=== PATIENT | female | born 1960 | race Two or more races ===

== ENCOUNTER 2024-09-12 07:01 | Inpatient (IN) | payer MEDICAID ==
[~2024-09-12] VITALS: Ht 160 cm; Wt 88.4 kg
[2024-09-12] VITALS (37 sets, daily range): BP systolic 69–152; BP diastolic 39–86; PULSE 74–124; RESP 10–23; TEMP 96.8–102.5; O2SAT 97–100
--- NOTE | 2024-09-12 07:17 | ED.PDOC ---
GI ASSESSMENT HPI Comments 64-year-old female with PMHx DM brought in by EMS presents with a chief complaint of abdominal pain, nausea, vomiting, and hematemesis. Patient states that her abdomen pain is localized to her diffuse abdomen, radiates to her back, describes as sharp, and rates her pain a 10/10. Patient mentions that she had an endoscopy yesterday and does not recall where it was done at or by whom. Per EMS, they witnessed patient vomiting bright red blood. Patients abdomen is soft and not distended at this time. Time Seen by MD: 07:10 Reviewed Notes: Medications, Allergies Allergies: Coded Allergies: NO KNOWN ALLERGIES (Unverified , 09/12/24) Information Source: Patient, Emergency Med Personnel Mode of Arrival: EMS Timing: Hours Duration: Since onset Prehospital treatment: None Quality: Sharp Vomitus: Bloody, Bright Red Bood Stool: Normal Severity: Moderate Recent: None Recent Hx of: Other (ENDOSCOPY) Pain Location: Diffuse Associated sign and symptoms: Nausea, Vomiting, Abdominal Pain Past Medical History PAST MEDICAL HISTORY: DM Surgical History: Denies all surgeries DATA WAREHOUSE ARCHITECT History: Denies all DATA WAREHOUSE ARCHITECT Hx Family History Family History: Reviewed,noncontributory to illness Social History Smoker: Non-Smoker Alcohol: Denies ETOH Use Drugs: Denies Drug Use Lives In: Home Constitutional: denies: chills, diaphoresis, fatigue, fever, malaise, sweats, weakness, others EENTM: denies: blurred vision, double vision, ear bleeding, ear discharge, ear drainage, ear pain, ear ringing, eye pain, eye redness, hearing loss, mouth pain, mouth swelling, nasal discharge, nose bleeding, nose congestion, nose pain, photophobia, tearing, throat pain, throat swelling, voice changes, others Respiratory: denies: cough, hemoptysis, orthopnea, SOB at rest, shortness of breath, SOB with excertion, stridor, wheezing, others Cardiovascular: denies: chest pain, dizzy spells, diaphoresis, Dyspnea on exertion, edema, irregular heart beat, left arm pain, lightheadedness, palpitations, PND, syncope, others Gastrointestinal: reports: abdominal pain, hematemesis, nausea, vomiting; denies: abdomen distended, blood streaked bowels, constipated, diarrhea, dysphagia, difficulty swallowing, melena, poor appetite, poor fluid intake, rectal bleeding, rectal pain, others Genitourinary: denies: abnormal vagina bleeding, burning, dyspareunia, dysuria, flank pain, frequency, hematuria, incontinence, pain, , vagina discharge, urgency, others Neurological: denies: dizziness, fainting, headache, left sided numbness, left sided weakness, numbness, paresthesia, pre-existing deficit, right sided numbness, right sided weakness, seizure, speech problems, tingling, tremors, weakness, others Musculoskeletal: denies: back pain, gout, joint pain, joint swelling, muscle pain, muscle stiffness, neck pain, others Integumetry: denies: bruises, change in color, change in hair/nails, dryness, laceration, lesions, lumps, rash, wounds, others Allergic/Immunocompromised: denies: Difficulty Healing, Frequent Infections, Hives, Itching, others Hematologic/Lymphatic: denies: anemia, blood clots, easy bleeding, easy bruising, swollen glands, others Endocrine: denies: excessive hunger, excessive sweating, excessive thirst, excessive urination, flushing, intolerance to cold, intolerance to heat, unexplained weight gain, unexplained weight loss, others Psychiatric: denies: anxiety, bipolar disorder, depression, hopeless, panic disorder, schizophrenia, sleepless, suicidal, others All Other Systems: Reviewed and Negative Physical Exam General Appearance: Moderate Distress, Normal HEENT: Normal ENT Inspection, Pharynx Normal, TMs Normal Neck: Full Range of Motion, Non-Tender, Normal, Normal Inspection Respiratory: Chest Non-Tender, Lungs Clear, No Accessory Muscle Use, No Respiratory Distress, Normal Breath Sounds Cardiovascular: No Edema, No JVD, No Murmur, No Gallop, Normal Peripheral Pulses, Regular Rate/Rhythm Breast Exam: Deferred Gastrointestinal: No Organomegaly, Non Tender, No Pulsatile Mass, Normal Bowel Sounds, Soft Genitalia: Deferred Pelvic: Deferred Rectal: Deferred Extremities: No calf tenderness, Normal capillary refill, Normal inspection, Normal range of motion, Non-tender, No pedal edema Musculoskeletal : Apperance: Normal Neurologic: Alert, oil field technician II-XII nml as Tested, No Motor Deficits, Normal Affect, Normal Mood, No Sensory Deficits Cerebellar Function: Normal, NOT DONE Reflexes: NOT DONE Skin: Dry, Normal Color, Warm Peripheral Pulses: 3+ Radial (R), 3+ Radial (L) Lymphatic: No Adenopathy Was a procedure done? Was a procedure done?: No GI differential Dx Differential Diagnosis: Constipation, Diverticular disease, Esophagitis, Gastritis/PUD, Gastroenteritis X-Ray, Labs, Meds, VS Vital Signs Date Time Temp Pulse Resp B/P (MAP) Pulse Ox O2 Delivery O2 Flow Rate FiO2 09/12/24 09:30 97.8 99 18 88/61 (70) 100 97.8 09/12/24 09:30 97.8 100 14 88/61 (70) 99 97.8 09/12/24 08:00 85 09/12/24 07:44 82 16 97 Room Air* 0 21 09/12/24 07:25 97.5 63 21 58/38 (45) 95 09/12/24 07:15 97.6 80 10 87/50 (62) 94 97.6 Lab Test 09/12/24 07:41 09/12/24 07:21 Range/Units White Blood Count 8.4 4.4-10.8 10^3/uL Red Blood Count 3.24 L 4.0-5.20 10^6/uL Hemoglobin 10.4 L 12.2-16.2 g/dL Hematocrit 31.0 L 36.0-46.0 % Mean Corpuscular Volume 95.8 80.0-100.0 fL Mean Corpuscular Hemoglobin 32.0 28.0-32.0 pg Mean Corpuscular Hemoglobin Concent 33.4 32.0-36.0 g/dL Red Cell Distribution Width 13.6 11.8-14.3 % Platelet Count 265 140-450 10^3/uL Mean Platelet Volume 6.7 L 6.9-10.8 fL Neutrophils (%) (Auto) 70.6 37.0-80.0 % Lymphocytes (%) (Auto) 20.3 10.0-50.0 % Monocytes (%) (Auto) 5.0 0.0-12.0 % Eosinophils (%) (Auto) 3.7 0.0-7.0 % Basophils (%) (Auto) 0.4 0.0-2.0 % Neutrophils # (Auto) 6.0 1.6-8.6 10 ^3/uL Lymphocytes # (Auto) 1.7 0.4-5.4 10 ^3/uL Monocytes # (Auto) 0.4 0-1.3 10 ^3/uL Eosinophils # (Auto) 0.3 0-0.8 10 ^3/uL Basophils # (Auto) 0 0-0.2 10 ^3/uL Nucleated Red Blood Cells 0.0 % Sodium Level 144 136-145 mmol/L Potassium Level 3.5 3.5-5.1 mmol/L Chloride Level 112 H 98-107 mmol/L Carbon Dioxide Level 24 20-31 mmol/L Anion Gap 8 5-15 Blood Urea Nitrogen 24 H 9-23 mg/dL Creatinine 0.58 0.550-1.02 mg/dL Glomerular Filtration Rate Calc 102 >90 mL/min BUN/Creatinine Ratio 41.4 H 10.0-20.0 Serum Glucose 163 H 74-106 mg/dL Calcium Level 8.2 L 8.7-10.4 mg/dL POC Glucose 167 H 70-106 mg/dl Current Medications Medications (Trade) Dose Ordered Sig/Leann Route Start Time Stop Time Status Last Admin Sodium Chloride 1,000 ml @ 1,000 mls/hr Q1H ONCE IV 09/12/24 07:30 09/12/24 08:29 DC 09/12/24 07:37 Sodium Chloride 1,000 ml @ 150 mls/hr Q6H40M ONCE IV 09/12/24 07:30 09/12/24 14:09 09/12/24 07:34 Pantoprazole Sodium (Protonix) 40 mg ONCE ONCE IV 09/12/24 07:30 09/12/24 07:31 DC 09/12/24 07:25 Pantoprazole Sodium 50 ml @ 10 mls/hr Q5H ONCE IV 09/12/24 08:00 09/12/24 12:59 09/12/24 08:17 Sodium Chloride 1,000 ml @ 1,000 mls/hr Q1H ONCE IV 09/12/24 09:30 09/12/24 10:29 09/12/24 09:36 Patient alert. Came in because of vomiting blood dark tarry stool. Vitals stable. Answering all questions. Abdomen is soft nontender. Establish intravenous access. Was given fluids. Was given Protonix. Unknown whether where she had her endoscope. Blood sugar elevated. Blood pressure is on the low side. Continue fluids. GI consultation. Explained to the patient. Continue monitoring. Time of 1ST Reevaluation: 07:40 Reevaluation 1ST: Unchanged Patient Education/Counseling: Diagnosis, Treatment, Prognosis Family Education/Counseling: Diagnosis, Treatment, Prognosis Departure 1 Departure Time of Disposition: 07:58 Impression: Primary Impression: GI bleed Qualified Codes: K27.4 - Chronic or unspecified peptic ulcer, site unspecified, with hemorrhage Disposition: ADMITTED INPATIENT Admit to: Med Surg Condition: Guarded Critical Care Note Critical Care Time?: Yes (90 min-critical care time only) Critical care comment: GI bleed Stability Stability form required: No Heart Score Heart Score: Heart Score Response (Comments) Value History N/A 0 EKG N/A 0 Age N/A 0 Risk Factors N/A 0 Troponin N/A 0 Total 0 I personally scribed for ARIANA MONTANEZ MD ([email or web address]) on 09/12/24 at 07:17. Electronically submitted by Ck Hudson ([email or web address]). ARIANA MONTANEZ MD Sep 12, 2024 07:17
[2024-09-12] MEDS: PANTOPRAZOLE 40 MG/10 ML VIAL INJ IV ONE (07:25)
[2024-09-12] MEDS: SODIUM CHLORIDE 0.9% 1,000 ML IV ONE ×4 (07:32→16:20)
--- NOTE | 2024-09-12 07:47 | DVH ---
CLINICAL INFORMATION: 64 years old, Female; shortness of breath. TECHNIQUE: Single AP portable chest radiograph was obtained. COMPARISON: None FINDINGS: Lungs: Low lung volumes with mild bibasilar atelectasis. No focal consolidation. No pneumothorax or p leural effusion. Cardiac: Heart size is within normal limits. Pulmonary vasculature: Unremarkable. Mediastinum/rosamaria: Unremarkable. Bones: No acute osseous abnormality identified. Other: No other significant findings. IMPRESSION: No evidence of acute disease in the chest.
[2024-09-12 07:53] LABS: Basophils # (auto) 0 10 ^3/uL (0-0.2); Basophils % (auto) 0.4 % (0.0-2.0); Eosinophils # (auto) 0.3 10 ^3/uL (0-0.8); Eosinophils % (auto) 3.7 % (0.0-7.0); Hemoglobin 10.4 g/dL (12.2-16.2); Lymphocytes # (auto) 1.7 10 ^3/uL (0.4-5.4); Lymphocytes % (auto) 20.3 % (10.0-50.0); Mean Corpuscular Hgb Conc. 33.4 g/dL (32.0-36.0); Mean Corpuscular Volume 95.8 fL (80.0-100.0); Monocytes # (auto) 0.4 10 ^3/uL (0-1.3); Neutrophils % (auto) 70.6 % (37.0-80.0); Platelet Count (auto) 265 10^3/uL (140-450); Red Blood Cells 3.24 10^6/uL (4.0-5.20); Red Cell Distribution Width 13.6 % (11.8-14.3); White Blood Cell 8.4 10^3/uL (4.4-10.8)
[2024-09-12 08:03] LABS: Sodium 144 mmol/L (136-145)
[2024-09-12 08:04] LABS: Anion Gap 8 (5-15); Carbon Dioxide 24 mmol/L (20-31)
[2024-09-12 08:09] LABS: BUN/Creatinine Ratio 41.4 (10.0-20.0)
[2024-09-12 08:14] LABS: Blood Urea Nitrogen 24 mg/dL (9-23); Calcium 8.2 mg/dL (8.7-10.4); Chloride 112 mmol/L (98-107); Glucose 163 mg/dL (74-106); Potassium 3.5 mmol/L (3.5-5.1)
[2024-09-12] MEDS: PANTOPRAZOLE 40mg/50ML NS AE 50 ML IV ONE ×2 (08:17→13:04)
[2024-09-12] MEDS: IOHEXOL 300 MG/ML 100ML BOTTLE IJ ONE (09:03)
--- NOTE | 2024-09-12 09:21 | DVH ---
Procedure: CT CT AB PEL WITH IV CON ONLY 09/12/2024 08:43 AM Indication: gibleed Comparison Study: None Technique: Axial images were obtained and reformatted in coronal and sagittal planes. All CT scans at this medical facility are performed using dose modulation techniques as appropriate t o a performed exam including the following: Automated exposure control was utilized; adjustment of th e MA and/or KV according to patient size; and use of iterative reconstruction technique. CT Dose: CTDI volume is 16 mGy. Dose-length product is 994 mGy*cm FINDINGS: Lower Chest: Unremarkable. Hepatobiliary: Gallbladder is surgically absent. No intrahepatic or extrahepatic ductal dilatation. S lightly nodular liver contour. Spleen: Unremarkable. Pancreas: Unremarkable. Adrenal Glands: Unremarkable. tract: The kidneys are normal in size bilaterally without hydronephrosis or nephrolithiasis. The urinary bladder is unremarkable. GI tract: Circumferential mural thickening of distal gastric body with concern for peptic ulcer and a ctive bleeding. Moderate amount of amorphous material is seen in a moderate distended gastric fundus and body likely hemorrhagic material. No evidence of small bowel obstruction. Scattered colonic dive rticula are noted without evidence of diverticulitis. The appendix is normal. Lymphatics: No mesenteric, retroperitoneal or periportal lymphadenopathy. Vasculature: The abdominal aorta is normal in in caliber. Pelvic Organs: Unremarkable Bones/soft tissues: No acute abnormality. Multilevel degenerative changes of the lumbar spine noted. Other: None. IMPRESSION: 1. Findings suggestive of gastric peptic ulcer in the distal gastric body with active bleeding modera te amount of hemorrhagic material in a moderately distended gastric fundus and body. No evidence of u lcer perforation. Recommend GI consultation and further evaluation with EGD. 2. Slightly nodular liver contour may reflect underlying cirrhosis. Correlate with liver function te sts. 3. Diffuse colonic diverticulosis without diverticulitis. Gretta solorio, the charge nurse in the emergency room was notified of findings on 09/12/2024 at a pproximately 9:[address] Parson was unavailable at the time of my call.
[2024-09-12 09:50] LABS: Urine Bacteria None Seen /hpf (None Seen)
[2024-09-12 09:57] LABS: Urine Blood Negative /uL (Negative); Urine Clarity Clear (Clear); Urine Color Colorless (Yellow); Urine Protein, UAD Negative (Negative); Urine Specific Gravity 1.028 (1.001-1.035); Urine Squamous Epithelial Cell FEW /hpf (<5); Urine Urobilinogen Normal (Negative); Urine WBC 1 /HPF (0-5)
[2024-09-12] MEDS: METOCLOPRAMIDE HCL 5MG/ml INJ 2ml VIAL IV ONE ×2 (12:33→17:24)
[2024-09-12] MEDS: NOREPINEPHRINE 8 MG/250ML KIT 250 ML IV SCH (13:00)
[2024-09-12] MEDS: PANTOPRAZOLE 40mg/50ML NS AE 50 ML IV SCH ×2 (13:04→15:35)
[2024-09-12] MEDS ORDERED: diphenhdrAMINE HCL 50 MG/1 ML VL ONE (13:12)
[2024-09-12] MEDS ORDERED: MIDAZOLAM HCL 5 MG/ML-1ML VIAL ONE (13:12)
[2024-09-12] MEDS ORDERED: SODIUM CHLORIDE LOCK 10 ML ONE (13:12)
[2024-09-12] MEDS ORDERED: fentaNYL CITRATE 100 MCG/2 ML VL ONE ×2 (13:13→14:42)
--- NOTE | 2024-09-12 13:53 | DVHPN2 ---
Progress Note - Dictate Date Seen: Sep 12, 2024 Medical Necessity Reason Pt with a Central, PICC or Fol: No Subjective PT SEEN AND EXAMINED. FULL CONSULT TO FOLLOW. REC CONT IV PPI DRIP NPO EGD URGENTLY FOR EVAL vital signs Vital Sign Date Time Temp Pulse Resp B/P (MAP) Pulse Ox O2 Delivery O2 Flow Rate FiO2 09/12/24 13:15 83/48 09/12/24 13:05 109 14 89 09/12/24 11:30 97.8 97.8 09/12/24 07:44 Room Air* 0 21 medications Current Medications Medications Dose Ordered Sig/Leann Route Start Time Stop Time Status Last Admin Dose Admin Norepinephrine Bitartrate 250 ml @ 3.75 mls/hr Q24H IV 09/12/24 09:30 09/12/24 13:00 3.75 MLS/HR Pantoprazole Sodium 50 ml @ 10 mls/hr Q5H IV 09/12/24 12:45 09/12/24 13:04 10 MLS/HR laboratory and microbiology Laboratory Tests 09/12/24 07:41 Test 09/12/24 07:41 Range/Units Serum Glucose 163 H 74-106 mg/dL Plan discussed with: Patient CC Plasma Assessment Blood Product Administration S: [id number] KARINA MOREIRA MD Sep 12, 2024 13:53
[2024-09-12] MEDS: LIDOCAINE VISCOUS 2% 15ML UD ONE (14:19)
[2024-09-12] MEDS ORDERED: MIDAZOLAM HCL 2MG/2ML 2ml VIAL (1mg/ml) ONE (14:42)
[2024-09-12] MEDS ORDERED: LIDOCAINE 1% INJ PF 5ML AMP ONE (14:42)
[2024-09-12] MEDS ORDERED: MEPERIDINE HCL (25 MG/ML) 1ML VIAL ONE (14:42)
[2024-09-12] MEDS ORDERED: ETOMIDATE (2MG/ML) 20ML VIAL IV ONE (14:43)
[2024-09-12] MEDS ORDERED: LIDOCAINE HCL 2% TOP JELLY 5ML TOP ONE (14:43)
[2024-09-12] MEDS ORDERED: ROCURONIUM 10MG/ML 10ML VIAL IV ONE (14:43)
[2024-09-12] MEDS ORDERED: NITROGLYCERIN 0.4 MG SL TAB SL PRN (14:45)
[2024-09-12] MEDS ORDERED: MORPHINE SULFATE INJ 2 MG/ml SYRG IV PRN ×2 (14:45→15:45)
[2024-09-12] MEDS ORDERED: EPINEPHrine HCL 1 MG/10 ML SYRG ONE ×2 (14:56→15:12)
[2024-09-12] MEDS ORDERED: fentaNYL CITRATE 100 MCG/2 ML VL IV PRN (15:15)
[2024-09-12] MEDS ORDERED: MIDAZOLAM HCL 2MG/2ML 2ml VIAL (1mg/ml) IV PRN (15:15)
--- NOTE | 2024-09-12 15:28 | DVHOP2 ---
Operative Report DATE OF OPERATION: 09/12/24 PROCEDURE: Upper Endoscopy. PREOPERATIVE INDICATION: The patient is a 64 -year-old female undergoing endoscopy for POSTOPERATIVE DIAGNOSES: Acute upper GI hemorrhage PROCEDURE PERFORMED BY: Denilson Bahena MD Consent: Prior to the procedure the risks benefits alternative to procedure were explained to the patient. The risks discussed include possible worsening bleeding, infection pain perforation possibly for surgery plus with a soft to including . Explanation for intubation was explained to the patient for airway protection as well as the patient is at risk for aspiration due to active GI bleeding. The patient agrees and consented for procedure. GI NURSE: SCOPE: Olympus videoendoscope. ASA CLASS: II Sedation: The patient was intubated for airway protection and underwent general anesthesia sedation for the procedure. PROCEDURE IN DETAIL: After obtaining an informed consent, the patient was placed on left lateral decubitus position. The patient was then sedated with the above medications. A bite block was placed between she teeth. The endoscope was then passed through the oropharynx, into the esophagus, and through the stomach and pylorus up to the second and third part of the duodenum. The endoscope was then withdrawn. The patient tolerated the procedure well without difficulty. Findings: 1. The esophagus appears normal. 2. In the stomach there is a large amount of old blood clots. Visualization was limited. In the antrum there was evidence of an active bleeding ulcer with visible vessel. Epinephrine 1-19101 dilution was injected for hemostasis. Two clips were successfully placed to control hemostasis. This was followed by hemostatic powder spray to ensure persistent hemostasis. 3. The duodenal bulb and 2nd portions of the duodenum appears normal. COMPLICATIONS : None SPECIMENS: None DISPOSITION: The patient will be transferred to the ICU and remain on pressor support. PLAN: Continue IV Protonix drip. Continue to monitor H&H serially and chest few symptomatic. We will continue to monitor the patient closely to ensure continued hemostasis. DENILSON BAHENA MD Sep 12, 2024 15:28
[2024-09-12] MEDS ORDERED: HYDROmorphone HCL 2 MG/ML VL/or syr IV PRN ×2 (15:45)
[2024-09-12] MEDS ORDERED: MORPHINE SULFATE 4 MG/ML SYR/VIAL IV PRN (15:45)
[2024-09-12] MEDS: fentaNYL Drip 2500mCg/250mlNS 250 ML IV SCH (15:50)
[2024-09-12] MEDS: MIDAZOLAM DRIP 50 mg/50mL 50 ML IV SCH (16:09)
[2024-09-12] MEDS ORDERED: hydrALAZINE HCL 20 MG/ML VL IV PRN (16:45)
[2024-09-12] MEDS ORDERED: DEXTROSE (50%) 50ML SYRG IV PRN (16:45)
[2024-09-12] MEDS ORDERED: ONDANSETRON HCL 4 MG/2 ML VIAL IV PRN (16:45)
[2024-09-12] MEDS ORDERED: diphenhdrAMINE HCL 50 MG/1 ML VL IV PRN (16:45)
[2024-09-12 17:14] LABS: Hematocrit 20.8 % (36.0-46.0); Mean Corpuscular Hgb Conc. 33.2 g/dL (32.0-36.0); Mean Corpuscular Volume 96.4 fL (80.0-100.0); Platelet Count (auto) 234 10^3/uL (140-450); Red Blood Cells 2.15 10^6/uL (4.0-5.20); Red Cell Distribution Width 14.6 % (11.8-14.3); White Blood Cell 20.4 10^3/uL (4.4-10.8)
--- NOTE | 2024-09-12 17:14 | DVH ---
CHEST RADIOGRAPH Indication: S/P INTUBATION Technique: Single frontal view of the chest was obtained Comparison: XY CHEST PORTABLE on DOS: 09/12/24 FINDINGS: Lines and Tubes: Endotracheal tube is in satisfactory position. Lungs: Bronchovascular crowding due to low lung volumes obscuration of the left hemidiaphragm. Hazy opacification of the left hemithorax which may be from overlying structures. No pneumothorax. Cardiomediastinal contours: Unremarkable Bones: No acute osseous abnormality. IMPRESSION: Endotracheal tube is in satisfactory position. Bronchovascular crowding due to low lung volumes with left basilar atelectasis.
[2024-09-12 17:17] LABS: Hemoglobin 6.9 g/dL (12.2-16.2)
[2024-09-12 17:18] LABS: Band Neutrophils % (manual) 0; Basophils % (manual) 0 (0.0-2.0); Blast Cells 0; Eosinophils % (manual) 0 (0-7); Metamyelocytes % 0; Myelocytes % 0; Promyelocytes % 0; Reactive Lymphocytes 0
[2024-09-12 17:26] LABS: INR 1.11 (0.9-1.15); Prothrombin Time 11.6 sec (9.3-11.8)
[2024-09-12 18:17] LABS: Lymphocytes % (manual) 14 (10.0-50.0); Monocytes % (manual) 5 (0-12); Platelet Estimate Adequate
[2024-09-12] MEDS: ACCU-CHEK COMFORT CURVE STRIP VI SCH (18:36)
[2024-09-12] MEDS: InsuLIN REG 1unit/0.01ml Soln (100units/ml) SC SCH (18:41)
--- NOTE | 2024-09-12 19:47 | DVHNC2 ---
Procedure - Central Venous Catheter placement. Start: 1924 Finish: 1934 Patient present in recovery room, remains intubated and sedated. BP is being supported with a NorEpinephrine infusion and sedation with infusions of Midazolam and Fentanyl. Decision is made per hospital/ICU protocol to place CVC due to infusion of vasoactive medication. 7 Fr 3-lumen kit is brought to the bedside. Patient is positioned in trendelenburg position with head to left side. Time out is performed. Site is prepped and draped, full body drape. Sterile technique is utilized throughout the procedure. Ultrasound(US) ID of anatomy is performed. 4 ml 1% lidocaine skin infiltration is placed. Under US guidance and with negative pressure to syringe, finder needle is placed into the right IJ vein. Dark blood in withdrawn easily. Syringe is removed and guide wire placed. Guidewire is visualized throughout the entirety of the procedure. Needle is then removed, small skin incision made at junction of wire and skin, dilator place over guide wire and removed. CVC catheter then placed over the guide wire, wire is removed. Blood is withdrawn freely from each port and then flushed with saline and locked. Catheter is sutured in place. Dressing applied. Infusion caps placed on each port and flushed easily. All instruments/needles accounted for and removed from the bedside, disposed of appropriately. Patient's bed is leveled and her head/neck returns to midline. VSS throughout, all atraumatic. 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 Questions sought and answered. MARISELA MCKEON CRNA Sep 12, 2024 19:47
--- NOTE | 2024-09-12 20:38 | DVHHP2 ---
Admitting Diagnosis: Abdominal Pain History of Present Illness 64 yo female patient with hx of DM c/o sharp abdominal pain that radiates to her back with associated nausea and hematemesis. Patient reports having an endoscopy done yesterday. While in the emergency department the patient was evaluated by the provider, As per provider: Labs, vital signs, and imagining monitored. Patient will be admitted for further evaluation and treatment. I discussed admission with the patient/family and is in agreement to treatment plan. Allergies: Coded Allergies: NO KNOWN ALLERGIES (Unverified , 09/12/24) Current Medications Current Medications Medications (Trade) Dose Ordered Sig/Leann Route PRN Reason Start Time Stop Time Status Last Admin Norepinephrine Bitartrate 250 ml @ 3.75 mls/hr Q24H IV 09/12/24 09:30 09/12/24 13:00 Pantoprazole Sodium 50 ml @ 10 mls/hr Q5H IV 09/12/24 12:45 09/12/24 16:20 DC 09/12/24 13:04 Nitroglycerin (Ntrostat Sublingual) 0.4 mg Q5MINP PRN SL FOR CHEST PAIN 09/12/24 14:45 Morphine Sulfate 2 mg Q30M PRN IV FOR CHEST PAIN 09/12/24 14:45 Midazolam HCl 50 ml @ 1 mls/hr Q24H IV 09/12/24 15:15 09/12/24 16:09 Fentanyl Citrate 250 ml @ 2.5 mls/hr Q24H IV 09/12/24 15:15 09/12/24 15:50 Midazolam HCl (Versed Injection) 1 mg Q10M PRN IV ANXIETY 09/12/24 15:15 09/12/24 15:56 DC Fentanyl Citrate 25 mcg Q1HP PRN IV BREAKTHROUGH PAIN (7-10) 09/12/24 15:15 09/12/24 15:16 DC Pantoprazole Sodium 50 ml @ 10 mls/hr Q5H IV 09/12/24 15:30 09/12/24 15:35 Hydromorphone HCl (Dilaudid Injection) 0.5 mg Q10M PRN IV SEVERE PAIN (7-10 PAIN SCALE) 09/12/24 15:45 09/12/24 16:26 DC Morphine Sulfate 2 mg Q4H PRN IV BREAKTHRU PAIN SCALE 7-10 09/12/24 15:45 09/12/24 19:46 DC Hydromorphone HCl (Dilaudid Injection) 0.25 mg Q10M PRN IV MODERATE PAIN (4-6 PAIN SCALE) 09/12/24 15:45 09/12/24 16:19 DC Morphine Sulfate 1 mg Q30M PRN IV SEVERE PAIN (7-10 PAIN SCALE) 09/12/24 15:45 09/12/24 17:46 DC Diagnostic Test (Pha) (Accu-Chek Comfort Curve T) 1 strip Q6HR 09/12/24 18:00 09/12/24 18:36 Insulin Human Regular (InsuLIN R) Q6HR SC 09/12/24 18:00 09/12/24 18:41 Dextrose 50 ml UD PRN IV Blood Sugar LESS THAN 60 09/12/24 16:45 Ondansetron HCl (Zofran) 4 mg Q4HPRN PRN IV NAUSEA / VOMITING 09/12/24 16:45 Hydralazine HCl (Apresoline Injection) 10 mg Q6HP PRN IV SBP>150 09/12/24 16:45 Diphenhydramine HCl (Benadryl Injection) 25 mg Q4HP PRN IV FOR ITCHING 09/12/24 16:45 Review of Systems Constitutional: denies chills, denies fever, denies malaise Eyes: denies eye pain, denies vision change ENT: denies ear pain, denies headache, denies nasal congestion, denies painful swallowing, denies voice change Cardiovascular: denies chest pain, denies edema, denies orthopnea, denies palpitations, denies paroxysmal nocturnal dyspnea Respiratory: denies cough, denies shortness of breath Gastrointestinal: denies constipation, denies diarrhea, denies nausea, denies vomiting Genitourinary: denies dysuria, denies frequent urination, denies urethral discharge Musculoskeletal: denies back pain, denies joint pain, denies muscle pain Skin: denies bruising, denies itching, denies rash Neurological: denies focal weakness, denies headache, denies sensory changes Psychiatric: denies anxiety, denies depression Endocrine: denies polydipsia, denies polyuria Hematologic/Lymphatic: denies easy bleeding, denies easy bruising, denies enlarged lymph nodes Allergic/Immunologic: denies allergy, denies hives Vital Signs Vital Signs Date Time Temp Pulse Resp B/P (MAP) Pulse Ox O2 Delivery O2 Flow Rate FiO2 09/12/24 20:10 100 17 81/44 (56) 100 60 09/12/24 19:25 98.4 98.4 09/12/24 15:35 Mechanical Ventilator 09/12/24 07:44 0 Physical Exam General Appearance: alert, no distress HEENT: EOMI, PERRLA, normal external inspect of ears, no icterus, no nasal drainage Neck: no carotid bruit, no jugular venous distention (JVD), no lymphadenopathy Chest: normal thorax Respiratory: clear to auscultation, normal air movement Cardiovascular: regular rate and rhythm, no diastolic murmur, no jugular venous distention (JVD), no rub, no systolic murmur Abdominal: soft, no hepatomegaly, no mass, no splenomegaly, no tenderness Genitourinary: grossly normal external Musculoskeletal: no joint tenderness, no swelling Extremities: normal pulses, no calf tenderness, no clubbing, no cyanosis, no edema Skin: no bruising, no jaundice, no rash Neurological: alert, No focal deficit Results Labs Test 09/12/24 18:38 09/12/24 18:30 09/12/24 16:35 09/12/24 09:41 Range/Units POC Glucose 205 H 70-106 mg/dl Blood Gas Specimen Type Arterial Blood Gas Sample Site Arterial line Blood Gas Patient Temperature 37.0 Arterial Blood Date Drawn [id number] Arterial Blood pH 7.300 L 7.350-7.450 Arterial Blood Partial Pressure CO2 36.9 32.0-45.0 mmHg Arterial Blood Partial Pressure O2 356.1 *H 83.0-108.0 mmHg Arterial Blood HCO3 17.7 L 21.0-28.0 mmol/L Arterial Blood Oxygen Saturation 99.0 H 94.0-98.0 % Arterial Blood Base Excess -8.0 L -2.0-3.0 mmol/L Arterial Blood Oxyhemoglobin 97.8 94.0-98.0 % Arterial Blood Carboxyhemoglobin 0.2 L 0.5-1.5 % Arterial Blood Methemoglobin 1.0 0.0-1.5 % Gagan Test N/a Blood Gas Total Hemoglobin 8.20 L 12.0-16.0 g/dL Blood Gas Set Respiration Rate 14.0 Blood Gas Modality Vent - ac FiO2 % 100.0 Blood Gas Tidal Volume 500.0 Blood Gas PEEP or CPAP 5.0 Blood Gas Critical Value Read Back Yes Blood Gas Notified Whom rohan Tyson Blood Gas Notified Time [id number] Blood Gas Notified By Nickie cope, connor White Blood Count 20.4 #H 4.4-10.8 10^3/uL Red Blood Count 2.15 L 4.0-5.20 10^6/uL Hemoglobin 6.9 #*L 12.2-16.2 g/dL Hematocrit 20.8 #L 36.0-46.0 % Mean Corpuscular Volume 96.4 80.0-100.0 fL Mean Corpuscular Hemoglobin 32.0 28.0-32.0 pg Mean Corpuscular Hemoglobin Concent 33.2 32.0-36.0 g/dL Red Cell Distribution Width 14.6 H 11.8-14.3 % Platelet Count 234 140-450 10^3/uL Mean Platelet Volume 6.9 6.9-10.8 fL Neutrophils (%) (Auto) 37.0-80.0 % Lymphocytes (%) (Auto) 10.0-50.0 % Monocytes (%) (Auto) 0.0-12.0 % Basophils (%) (Auto) 0.0-2.0 % Neutrophils # (Auto) 1.6-8.6 10 ^3/uL Lymphocytes # (Auto) 0.4-5.4 10 ^3/uL Monocytes # (Auto) 0-1.3 10 ^3/uL Differential Total Cells Counted 100.0 100 Neutrophils % (Manual) 81 H 37.0-80.0 Band Neutrophils % (Manual) 0 Lymphocytes % (Manual) 14 10.0-50.0 Monocytes % (Manual) 5 0-12 Eosinophils % (Manual) 0 0-7 Basophils % (Manual) 0 0.0-2.0 Metamyelocytes % (manual) 0 Myelocytes % (Manual) 0 Promyelocytes % (Manual) 0 Blast Cells % (Manual) 0 Reactive Lymphocytes 0 Platelet Estimate Adequate Prothrombin Time 11.6 9.3-11.8 sec Prothrombin Time INR 1.11 0.9-1.15 Urine Color Colorless Yellow Urine Clarity Clear Clear Urine pH 7.0 5.0-9.0 Urine Specific Rampart 1.028 1.001-1.035 Urine Protein Negative Negative Urine Ketones Negative Negative Urine Blood Negative Negative /uL Urine Nitrite Negative Negative Urine Bilirubin Negative Negative Urine Urobilinogen Normal Negative mg/dL Urine Leukocyte Esterase Negative Negative /uL Urine RBC <1 0 - 4 /hpf Urine Microscopic WBC 1 0-5 /HPF Urine Squamous Epithelial Cells Few <5 /hpf Urine Bacteria None seen None Seen /hpf Urine Glucose Normal Normal mg/dL Test 09/12/24 07:41 Range/Units Eosinophils (%) (Auto) 3.7 0.0-7.0 % Eosinophils # (Auto) 0.3 0-0.8 10 ^3/uL Basophils # (Auto) 0 0-0.2 10 ^3/uL Nucleated Red Blood Cells 0.0 % Sodium Level 144 136-145 mmol/L Potassium Level 3.5 3.5-5.1 mmol/L Chloride Level 112 H 98-107 mmol/L Carbon Dioxide Level 24 20-31 mmol/L Anion Gap 8 5-15 Blood Urea Nitrogen 24 H 9-23 mg/dL Creatinine 0.58 0.550-1.02 mg/dL Glomerular Filtration Rate Calc 102 >90 mL/min BUN/Creatinine Ratio 41.4 H 10.0-20.0 Serum Glucose 163 H 74-106 mg/dL Calcium Level 8.2 L 8.7-10.4 mg/dL Plan 1. Hematemesis Monitor, GI consult, IV fluids 2. GI bleed Monitor, GI consult, surgical consult, plan for emergent EGD, transfuse if Hgb < 7 3. Hypovolemic shock Monitor, IV fluids 4. DM II & hyperglycemia Monitor, insulin ss 5. Obesity Monitor, PPI Plan discussed with: Patient, Other MICK ANTONIO NP Sep 12, 2024 20:38
--- NOTE | 2024-09-12 22:02 | DVHINCON2 ---
DATE OF CONSULTATION: 09/12/2024 INPATIENT GI CONSULTATION NOTE REFERRING PHYSICIAN: Dr. Parson. REASON FOR CONSULTATION: GI bleeding. HISTORY OF PRESENT ILLNESS: This is a 64-year-old female who has a history of diabetes, obesity, who presents to the hospital with acute hematemesis. The patient is familiar to us. She was seen by my colleague, Dr. Garrett Doty for EGD and colonoscopy done yesterday. Apparently EGD showed there was a large antral gastric lesion that required resection. The patient did well postoperatively, however, she started having recurrent hematemesis earlier in the day. She went to [facility] for evaluation. Upon evaluation in ER, she was noted to be hypotensive and required fluid resuscitation. The patient was also started on pressor and given packed red cells blood. Her hemoglobin right now is 10.4 and I am consulted for urgent endoscopy. Currently, the patient feels better. She denies any further nausea or vomiting. She does endorse melena. Denies fevers or chills. Denies any further abdominal pain. CT scan was also performed during this admission and findings suggestive of gastric peptic ulcer disease in the distal gastric body with active bleeding. Moderate amount of hemorrhagic material in the moderately distended gastric fundus, body. Slight liver nodular contour suggestive of possible underlying cirrhosis. REVIEW OF SYSTEMS: Otherwise, a 10-point review of systems negative. PAST MEDICAL HISTORY: As above. PAST SURGICAL HISTORY: Unremarkable. ALLERGIES: She has no known drug allergies. FAMILY HISTORY: Noncontributory. PHYSICAL EXAMINATION: Currently on exam, VITAL SIGNS: Show temperature is 97.8, pulse 101, blood pressure is 89/45. GENERAL: She is alert, in no acute distress. HEENT: Oropharynx is dry. LUNGS: Clear. HEART: Regular. ABDOMEN: Soft, nondistended, nontender. EXTREMITIES: Lower extremities, no clubbing, cyanosis or edema. CURRENT DIAGNOSTIC DATA: Labs show WBC is 8.4, hemoglobin 10.4, platelet 265, BUN 24, creatinine 0.5. Again, CT scan abdomen and pelvis results were mentioned above. IMPRESSION: Acute upper GI hemorrhage, likely from recent gastric lesion resection. The results are pending. The patient has signs of active hemorrhage as seen on CT. She is hypotensive and on pressor. RECOMMENDATIONS: At this time is to continue with aggressive IV hydration. I agree with IV Protonix drip. Continue to monitor the H and H. Keep the patient n.p.o. Advised the ER to give her a small dose of Reglan, mobilize blood clots and we will proceed to EGD urgently for further evaluation since there is evidence of active bleeding. Risks, benefits and alternatives to procedure were explained to the patient. The patient understands and willing to proceed. MD LORENE Guerrero/DANYA TID: [id number] RECEIPT: [id number] MTDD
[2024-09-13] VITALS (113 sets, daily range): BP systolic 66–171; BP diastolic 39–113; PULSE 90–105; RESP 11–21; TEMP 98.6–102.3; O2SAT 96–100
[2024-09-13] MEDS: ACETAMINOPHEN IV 1000 MG/100ML (10MG/ML) IV ONE (01:54)
[2024-09-13] MEDS: ACETAMINOPHEN IV 100 ML IV ONE (01:55)
[2024-09-13] MEDS ORDERED: VANCOMYCIN PER PHARMACY 0 MG IV SCH (02:00)
[2024-09-13] MEDS: PIPERACILLIN-TAZOB 3.375GM 100 ML IV ONE (02:29)
[2024-09-13] MEDS: VANCOMYCIN 1GM/250ML KIT 250 ML IV SCH ×2 (02:36→16:41)
[2024-09-13 02:50] LABS: Basophils # (auto) 0 10 ^3/uL (0-0.2); Basophils % (auto) 0.3 % (0.0-2.0); Eosinophils # (auto) 0 10 ^3/uL (0-0.8); Eosinophils % (auto) 0.2 % (0.0-7.0); Hematocrit 27.8 % (36.0-46.0); Hemoglobin 9.3 g/dL (12.2-16.2); Lymphocytes # (auto) 2.1 10 ^3/uL (0.4-5.4); Lymphocytes % (auto) 19.4 % (10.0-50.0); Mean Corpuscular Hemoglobin 30.8 pg (28.0-32.0); Mean Corpuscular Hgb Conc. 33.4 g/dL (32.0-36.0); Mean Corpuscular Volume 92.2 fL (80.0-100.0); Monocytes # (auto) 0.9 10 ^3/uL (0-1.3); Monocytes % (auto) 8.1 % (0.0-12.0); Neutrophils # (auto) 7.9 10 ^3/uL (1.6-8.6); Platelet Count (auto) 187 10^3/uL (140-450); Red Blood Cells 3.01 10^6/uL (4.0-5.20); Red Cell Distribution Width 15.3 % (11.8-14.3); White Blood Cell 10.9 10^3/uL (4.4-10.8)
[2024-09-13 03:43] LABS: Basophils # (auto) 0 10 ^3/uL (0-0.2); Basophils % (auto) 0.4 % (0.0-2.0); Eosinophils # (auto) 0 10 ^3/uL (0-0.8); Eosinophils % (auto) 0.1 % (0.0-7.0); Hematocrit 27.3 % (36.0-46.0); Lymphocytes # (auto) 2.2 10 ^3/uL (0.4-5.4); Lymphocytes % (auto) 19.9 % (10.0-50.0); Mean Corpuscular Hemoglobin 30.9 pg (28.0-32.0); Mean Corpuscular Hgb Conc. 33.1 g/dL (32.0-36.0); Mean Corpuscular Volume 93.2 fL (80.0-100.0); Monocytes % (auto) 8.7 % (0.0-12.0); Neutrophils # (auto) 7.8 10 ^3/uL (1.6-8.6); Neutrophils % (auto) 70.9 % (37.0-80.0); Nucleated Red Blood Cells % 0.1 %; Platelet Count (auto) 179 10^3/uL (140-450); Red Blood Cells 2.93 10^6/uL (4.0-5.20); Red Cell Distribution Width 15.4 % (11.8-14.3); White Blood Cell 10.9 10^3/uL (4.4-10.8)
[2024-09-13 04:08] LABS: Alanine Aminotransferase 13 U/L (7-40); Alkaline Phosphatase 49 U/L (46-116)
[2024-09-13 04:09] LABS: Anion Gap 10 (5-15); Bilirubin, Total 0.4 mg/dL (0.2-1.0); Blood Urea Nitrogen 21 mg/dL (9-23); Potassium 3.6 mmol/L (3.5-5.1)
[2024-09-13 04:28] LABS: Aspartate Aminotransferase 11 U/L (13-40); Calcium 8.2 mg/dL (8.7-10.4); Carbon Dioxide 19 mmol/L (20-31); Chloride 120 mmol/L (98-107); Glucose 171 mg/dL (74-106); Sodium 149 mmol/L (136-145); Total Protein 4.6 g/dL (5.7-8.2)
[2024-09-13 07:47] LABS: Base Excess -7.2 mmol/L (-2.0-3.0)
--- NOTE | 2024-09-13 09:00 | DVHPN2 ---
Progress Note - Dictate Date Seen: Sep 13, 2024 Medical Necessity Reason Pt with a Central, PICC or Fol: No Subjective The pt seen and examined. She remains intubated. Had large bout of bloody stool last night. Now off pressor. vital signs Vital Sign Date Time Temp Pulse Resp B/P (MAP) Pulse Ox O2 Delivery O2 Flow Rate FiO2 09/13/24 07:26 92 16 105/72 (83) 100 30 09/13/24 06:00 Mechanical Ventilator+ 09/13/24 04:00 99.8 99.8 09/12/24 07:44 0 Total Intake and Output 09/12/24 09/12/24 09/13/24 15:00 23:00 07:00 Intake Total 3390 ml 635.75 ml 1434.75 ml Output Total 1700 ml 2300 ml Balance 3390 ml -1064.25 ml -865.25 ml medications Current Medications Medications Dose Ordered Sig/Leann Route Start Time Stop Time Status Last Admin Dose Admin Norepinephrine Bitartrate 250 ml @ 3.75 mls/hr Q24H IV 09/12/24 09:30 09/13/24 01:02 3.75 MLS/HR Nitroglycerin 0.4 mg Q5MINP PRN SL 09/12/24 14:45 Morphine Sulfate 2 mg Q30M PRN IV 09/12/24 14:45 Midazolam HCl 50 ml @ 1 mls/hr Q24H IV 09/12/24 15:15 09/12/24 22:00 6 MLS/HR Fentanyl Citrate 250 ml @ 2.5 mls/hr Q24H IV 09/12/24 15:15 09/12/24 15:50 2.5 MLS/HR Pantoprazole Sodium 50 ml @ 10 mls/hr Q5H IV 09/12/24 15:30 09/13/24 05:37 10 MLS/HR Diagnostic Test (Pha) 1 strip Q6HR 09/12/24 18:00 09/13/24 05:18 1 STRIP Insulin Human Regular Q6HR SC 09/12/24 18:00 09/13/24 00:19 3 UNITS Dextrose 50 ml UD PRN IV 09/12/24 16:45 Ondansetron HCl 4 mg Q4HPRN PRN IV 09/12/24 16:45 Hydralazine HCl 10 mg Q6HP PRN IV 09/12/24 16:45 Diphenhydramine HCl 25 mg Q4HP PRN IV 09/12/24 16:45 Vancomycin HCl 0 ml @ 0 mls/hr UD IV 09/13/24 02:00 UNV Piperacillin Sod/ Tazobactam Sod 100 ml @ 25 mls/hr Q8H IV 09/13/24 10:00 objective Intubated Abd s/nt laboratory and microbiology Laboratory Tests 09/13/24 03:15 Test 09/13/24 03:15 Range/Units Serum Glucose 171 H 74-106 mg/dL Assessment/Plan 1) Acute UGI hemorrhage from post endoscopic mucosal resection of gastric lesion. s/p EGD with hemostasis by epi injection, clips, hemostatic powder. Currently appears more stable. Rec: Repeat H&H every 8 hrs x2. Cont IV protonix. May be extubated if possible- defer to PMD and alterations manager. Hold all ASA, antiplatelet and anticoagulants. Plan discussed with: Other (nursing staff) CC Plasma Assessment Blood Product Administration S: [id number] KARINA MOREIRA MD Sep 13, 2024 09:00
--- NOTE | 2024-09-13 09:12 | DVH ---
EXAM: XR Chest, 1 View CLINICAL INDICATION: recheck left basilar atelectasis TECHNIQUE: Frontal view of the chest. COMPARISON: XY CHEST PORTABLE on DOS: 09/12/24, XY CHEST PORTABLE on DOS: 09/12/24 FINDINGS: LUNGS AND PLEURAL SPACES: Left basilar atelectasis or pneumonia. No pneumothorax. HEART: Unremarkable. No cardiomegaly. MEDIASTINUM: Unremarkable. Normal mediastinal contour. BONES/JOINTS: Unremarkable. No acute fracture. TUBES, LINES AND DEVICES: The endotracheal tube (ETT) is in satisfactory position. Right internal jugular central venous catheter tip in the superior vena cava. OTHER FINDINGS: . IMPRESSION: Left basilar atelectasis or pneumonia.
[2024-09-13] MEDS ORDERED: ACETAMINOPHEN IV 1000 MG/100ML (10MG/ML) IV PRN (09:45)
[2024-09-13 09:52] LABS: Hematocrit 25.3 % (36.0-46.0); Hemoglobin 8.5 g/dL (12.2-16.2)
[2024-09-13] MEDS: PIPERACILLIN-TAZOB 3.375GM 100 ML IV SCH (10:48)
--- NOTE | 2024-09-13 12:25 | DVHPN2 ---
Progress Note - Dictate Date Seen: Sep 13, 2024 Medical Necessity Reason Pt with a Central, PICC or Fol: No vital signs Vital Sign Date Time Temp Pulse Resp B/P (MAP) Pulse Ox O2 Delivery O2 Flow Rate FiO2 09/13/24 11:42 92 17 109/52 (71) 98 30 09/13/24 06:00 Mechanical Ventilator+ 09/13/24 04:00 99.8 99.8 09/12/24 07:44 0 Total Intake and Output 09/12/24 09/12/24 09/13/24 15:00 23:00 07:00 Intake Total 3390 ml 635.75 ml 1434.75 ml Output Total 1700 ml 2300 ml Balance 3390 ml -1064.25 ml -865.25 ml medications Current Medications Medications Dose Ordered Sig/Leann Route Start Time Stop Time Status Last Admin Dose Admin Norepinephrine Bitartrate 250 ml @ 3.75 mls/hr Q24H IV 09/12/24 09:30 09/13/24 01:02 3.75 MLS/HR Nitroglycerin 0.4 mg Q5MINP PRN SL 09/12/24 14:45 Morphine Sulfate 2 mg Q30M PRN IV 09/12/24 14:45 Midazolam HCl 50 ml @ 1 mls/hr Q24H IV 09/12/24 15:15 09/13/24 11:22 6 MLS/HR Fentanyl Citrate 250 ml @ 2.5 mls/hr Q24H IV 09/12/24 15:15 09/12/24 15:50 2.5 MLS/HR Pantoprazole Sodium 50 ml @ 10 mls/hr Q5H IV 09/12/24 15:30 09/13/24 11:11 10 MLS/HR Diagnostic Test (Pha) 1 strip Q6HR 09/12/24 18:00 09/13/24 12:18 1 STRIP Insulin Human Regular Q6HR SC 09/12/24 18:00 09/13/24 00:19 3 UNITS Dextrose 50 ml UD PRN IV 09/12/24 16:45 Ondansetron HCl 4 mg Q4HPRN PRN IV 09/12/24 16:45 Hydralazine HCl 10 mg Q6HP PRN IV 09/12/24 16:45 Diphenhydramine HCl 25 mg Q4HP PRN IV 09/12/24 16:45 Vancomycin HCl 0 ml @ 0 mls/hr UD IV 09/13/24 02:00 Piperacillin Sod/ Tazobactam Sod 100 ml @ 25 mls/hr Q8H IV 09/13/24 10:00 09/13/24 10:48 25 MLS/HR Vancomycin HCl 250 ml @ 250 mls/hr Q12H IV 09/13/24 17:00 Acetaminophen 1,000 mg Q8H PRN IV 09/13/24 10:45 objective General Appearance: alert, no distress HEENT: EOMI, PERRLA, normal external inspect of ears, no icterus, no nasal drainage Neck: no carotid bruit, no jugular venous distention (JVD), no lymphadenopathy Chest: normal thorax Respiratory: clear to auscultation, normal air movement Cardiovascular: regular rate and rhythm, no diastolic murmur, no jugular venous distention (JVD), no rub, no systolic murmur Abdominal: soft, no hepatomegaly, no mass, no splenomegaly, no tenderness Genitourinary: grossly normal external Musculoskeletal: no joint tenderness, no swelling Extremities: normal pulses, no calf tenderness, no clubbing, no cyanosis, no edema Skin: no bruising, no jaundice, no rash Neurological: alert, No focal deficit laboratory and microbiology Laboratory Tests 09/13/24 09:00 09/13/24 03:15 Test 09/13/24 03:15 Range/Units Serum Glucose 171 H 74-106 mg/dL Problem List 1. Hematemesis Medication, monitoring 2. GI Bleed GI Consult, Surgical Consult 3. Hypovolemic Shock Medication, monitoring 4. DM II hyperglycemia Insulin SS 5. Obesity Diet Education, monitoring Assessment/Plan Subjective: Patient remains intubated and sedated.' Objective: Patient had an outpatient colonoscopy and EGD. Patient presented with jb bleeding and underwent an emergent EGD. A total of three units of packed red blood cells were given. Plan: Start IV fluids. Monitor serial CBC. Continue antibioticsWBC downtrending. Plan discussed with: Patient, Other CC Plasma Assessment Blood Product Administration S: [id number] MICK ANTONIO NP Sep 13, 2024 12:25
[2024-09-13] MEDS: LACTATED RINGER'S 1,000 ML IV SCH (15:16)
[2024-09-13] MEDS ORDERED: POTASSIUM CHL 20MEQ/100ML 100 ML IV SCH (15:45)
[2024-09-13 16:18] LABS: Hematocrit 24.8 % (36.0-46.0); Hemoglobin 8.3 g/dL (12.2-16.2)
--- NOTE | 2024-09-13 20:45 | DVHHP2 ---
History of Present Illness 64 yo female patient with hx of DM c/o sharp abdominal pain that radiates to her back with associated nausea and hematemesis. Patient reports having an endoscopy done yesterday. While in the emergency department the patient was evaluated by the provider, As per provider: Labs, vital signs, and imagining monitored. Patient will be admitted for further evaluation and treatment. I discussed admission with the patient/family and is in agreement to treatment p val. Allergies: Coded Allergies: NO KNOWN ALLERGIES (Unverified , 09/12/24) Current Medications Current Medications Medications (Trade) Dose Ordered Sig/Leann Route PRN Reason Start Time Stop Time Status Last Admin Vancomycin HCl 0 ml @ 0 mls/hr UD IV 09/13/24 02:00 Piperacillin Sod/ Tazobactam Sod 100 ml @ 25 mls/hr Q8H IV 09/13/24 10:00 09/13/24 18:39 Vancomycin HCl 250 ml @ 150 mls/hr Q2H IV 09/13/24 03:00 09/13/24 06:39 DC 09/13/24 05:17 Acetaminophen (Ofirmev) 1,000 mg Q8H PRN IV PAIN SCALE 1-3 OR TEMP>100.4 09/13/24 09:45 09/13/24 10:37 DC Vancomycin HCl 250 ml @ 250 mls/hr Q12H IV 09/13/24 17:00 09/13/24 16:41 Acetaminophen (Ofirmev) 1,000 mg Q8H PRN IV PAIN SCALE 1-3 OR TEMP>100 09/13/24 10:45 Lactated Ringer's 1,002 ml @ 30 mls/hr Q24H IV 09/13/24 12:30 09/13/24 15:16 Potassium Chloride 100 ml @ 50 mls/hr Q2H IV 09/13/24 15:45 09/13/24 16:34 DC Review of Systems Constitutional: denies chills, denies fever, denies malaise Eyes: denies eye pain, denies vision change ENT: denies ear pain, denies headache, denies nasal congestion, denies painful swallowing, denies voice change Cardiovascular: denies chest pain, denies edema, denies orthopnea, denies palpitations, denies paroxysmal nocturnal dyspnea Respiratory: denies cough, denies shortness of breath Gastrointestinal: denies constipation, denies diarrhea, denies nausea, denies vomiting Genitourinary: denies dysuria, denies frequent urination, denies urethral discharge Musculoskeletal: denies back pain, denies joint pain, denies muscle pain Skin: denies bruising, denies itching, denies rash Neurological: denies focal weakness, denies headache, denies sensory changes Psychiatric: denies anxiety, denies depression Endocrine: denies polydipsia, denies polyuria Hematologic/Lymphatic: denies easy bleeding, denies easy bruising, denies enlarged lymph nodes Allergic/Immunologic: denies allergy, denies hives Vital Signs Vital Signs Date Time Temp Pulse Resp B/P (MAP) Pulse Ox O2 Delivery O2 Flow Rate FiO2 09/13/24 20:04 96 14 98/65 (76) 99 30 09/13/24 18:00 Mechanical Ventilator+ 09/13/24 16:15 100.1 100.1 09/12/24 07:44 0 Physical Exam General Appearance: alert, no distress HEENT: EOMI, PERRLA, normal external inspect of ears, no icterus, no nasal drainage Neck: no carotid bruit, no jugular venous distention (JVD), no lymphadenopathy Chest: normal thorax Respiratory: clear to auscultation, normal air movement Cardiovascular: regular rate and rhythm, no diastolic murmur, no jugular venous distention (JVD), no rub, no systolic murmur Abdominal: soft, no hepatomegaly, no mass, no splenomegaly, no tenderness Genitourinary: grossly normal external Musculoskeletal: no joint tenderness, no swelling Extremities: normal pulses, no calf tenderness, no clubbing, no cyanosis, no edema Skin: no bruising, no jaundice, no rash Neurological: alert, No focal deficit Results Labs Test 09/13/24 17:50 09/13/24 15:59 09/13/24 07:17 09/13/24 03:57 Range/Units POC Glucose 161 H 70-106 mg/dl Hemoglobin 8.3 L 12.2-16.2 g/dL Hematocrit 24.8 L 36.0-46.0 % Blood Gas Specimen Type Arterial Blood Gas Sample Site Arterial line Blood Gas Patient Temperature 37.0 Arterial Blood Date Drawn [id number] Arterial Blood pH 7.354 7.350-7.450 Arterial Blood Partial Pressure CO2 32.2 32.0-45.0 mmHg Arterial Blood Partial Pressure O2 144.6 H 83.0-108.0 mmHg Arterial Blood HCO3 17.5 L 21.0-28.0 mmol/L Arterial Blood Oxygen Saturation 98.1 H 94.0-98.0 % Arterial Blood Base Excess -7.2 L -2.0-3.0 mmol/L Arterial Blood Oxyhemoglobin 97.2 94.0-98.0 % Arterial Blood Carboxyhemoglobin 0.3 L 0.5-1.5 % Arterial Blood Methemoglobin 0.6 0.0-1.5 % Gagan Test N/a Blood Gas Total Hemoglobin 8.00 L 12.0-16.0 g/dL Blood Gas Set Respiration Rate 14.0 Blood Gas Modality Vent - ac FiO2 % 50.0 Blood Gas Tidal Volume 500.0 Blood Gas PEEP or CPAP 5.0 Lactic Acid Level 1.3 0.4-2.0 mmol/L Test 09/13/24 03:15 09/12/24 18:30 09/12/24 16:35 09/12/24 09:41 Range/Units White Blood Count 10.9 H 4.4-10.8 10^3/uL Red Blood Count 2.93 L 4.0-5.20 10^6/uL Mean Corpuscular Volume 93.2 80.0-100.0 fL Mean Corpuscular Hemoglobin 30.9 28.0-32.0 pg Mean Corpuscular Hemoglobin Concent 33.1 32.0-36.0 g/dL Red Cell Distribution Width 15.4 H 11.8-14.3 % Platelet Count 179 140-450 10^3/uL Mean Platelet Volume 7.0 6.9-10.8 fL Neutrophils (%) (Auto) 70.9 37.0-80.0 % Lymphocytes (%) (Auto) 19.9 10.0-50.0 % Monocytes (%) (Auto) 8.7 0.0-12.0 % Eosinophils (%) (Auto) 0.1 0.0-7.0 % Basophils (%) (Auto) 0.4 0.0-2.0 % Neutrophils # (Auto) 7.8 1.6-8.6 10 ^3/uL Lymphocytes # (Auto) 2.2 0.4-5.4 10 ^3/uL Monocytes # (Auto) 1.0 0-1.3 10 ^3/uL Eosinophils # (Auto) 0 0-0.8 10 ^3/uL Basophils # (Auto) 0 0-0.2 10 ^3/uL Nucleated Red Blood Cells 0.1 % Sodium Level 149 #H 136-145 mmol/L Potassium Level 3.6 3.5-5.1 mmol/L Chloride Level 120 H 98-107 mmol/L Carbon Dioxide Level 19 L 20-31 mmol/L Anion Gap 10 5-15 Blood Urea Nitrogen 21 9-23 mg/dL Creatinine 0.50 L 0.550-1.02 mg/dL Glomerular Filtration Rate Calc 105 >90 mL/min BUN/Creatinine Ratio 42.0 H 10.0-20.0 Serum Glucose 171 H 74-106 mg/dL Calcium Level 8.2 L 8.7-10.4 mg/dL Total Bilirubin 0.4 0.2-1.0 mg/dL Aspartate Amino Transferase (AST) 11 L 13-40 U/L Alanine Aminotransferase (ALT) 13 7-40 U/L Alkaline Phosphatase 49 46-116 U/L Total Protein 4.6 L 5.7-8.2 g/dL Albumin 3.0 L 3.2-4.8 g/dL Blood Gas Critical Value Read Back Yes Blood Gas Notified Whom rohan Tyson Blood Gas Notified Time [id number] Blood Gas Notified By Nickie cope rrt Differential Total Cells Counted 100.0 100 Neutrophils % (Manual) 81 H 37.0-80.0 Band Neutrophils % (Manual) 0 Lymphocytes % (Manual) 14 10.0-50.0 Monocytes % (Manual) 5 0-12 Eosinophils % (Manual) 0 0-7 Basophils % (Manual) 0 0.0-2.0 Metamyelocytes % (manual) 0 Myelocytes % (Manual) 0 Promyelocytes % (Manual) 0 Blast Cells % (Manual) 0 Reactive Lymphocytes 0 Platelet Estimate Adequate Prothrombin Time 11.6 9.3-11.8 sec Prothrombin Time INR 1.11 0.9-1.15 Urine Color Colorless Yellow Urine Clarity Clear Clear Urine pH 7.0 5.0-9.0 Urine Specific [place] 1.028 1.001-1.035 Urine Protein Negative Negative Urine Ketones Negative Negative Urine Blood Negative Negative /uL Urine Nitrite Negative Negative Urine Bilirubin Negative Negative Urine Urobilinogen Normal Negative mg/dL Urine Leukocyte Esterase Negative Negative /uL Urine RBC <1 0 - 4 /hpf Urine Microscopic WBC 1 0-5 /HPF Urine Squamous Epithelial Cells Few <5 /hpf Urine Bacteria None seen None Seen /hpf Urine Glucose Normal Normal mg/dL Microbiology Date/Time Source Procedure Growth Status 09/12/24 21:19 Nose MRSA Screen - Final Complete 09/12/24 20:39 Sputum Gram Stain Pending Resulted 09/12/24 20:39 Sputum Respiratory Culture - Preliminary Resulted Admitting Diagnosis: 1. Hematemesis Medication, monitoring 2. GI Bleed GI Consult, Surgical Consult 3. Hypovolemic Shock Medication, monitoring 4. DM II hyperglycemia Insulin SS 5. Obesity Diet Education, monitoring Plan discussed with: Patient, Other MICK ANTONIO NP Sep 13, 2024 20:44
--- NOTE | 2024-09-13 21:34 | DVHINCON2 ---
Date of service: Sep 13, 2024 Referring Physician Celia Villegas NP Reason for Consultation AHRF on mechanical vent. History of Present Illness A 64-year-old woman who has PMHx of diabetes, obesity, who presented to ED on 09/12/24 with acute hematemesis. She underwent EGD and colonoscopy by Dr. Doty and resection of large antral gastric lesion. The patient did well postoperatively, however, started having recurrent hematemesis and presented for evaluation. In ER, she was noted to be hypotensive and required fluid resuscitation. The patient was also started on pressor and given packed red blood cells. Patient was admitted for further care, and pulmonary consultation is requested for evaluation and management d/t the above findings. Review of Systems: 14-point review of systems negative unless otherwise noted above. Past Medical History: Diabetes mellitus Past Surgical History: None Medications: Reviewed. Allergies: No known drug allergies. Family History: No family history of premature CAD. No family history of lung disorders. Social History: Nonsmoker. No alcohol or illicit drug use. Allergies: Coded Allergies: NO KNOWN ALLERGIES (Unverified , 09/12/24) Current Medications Current Medications Medications (Trade) Dose Ordered Sig/Leann Route PRN Reason Start Time Stop Time Status Last Admin Vancomycin HCl 0 ml @ 0 mls/hr UD IV 09/13/24 02:00 Piperacillin Sod/ Tazobactam Sod 100 ml @ 25 mls/hr Q8H IV 09/13/24 10:00 09/13/24 18:39 Vancomycin HCl 250 ml @ 150 mls/hr Q2H IV 09/13/24 03:00 09/13/24 06:39 DC 09/13/24 05:17 Acetaminophen (Ofirmev) 1,000 mg Q8H PRN IV PAIN SCALE 1-3 OR TEMP>100.4 09/13/24 09:45 09/13/24 10:37 DC Vancomycin HCl 250 ml @ 250 mls/hr Q12H IV 09/13/24 17:00 09/13/24 16:41 Acetaminophen (Ofirmev) 1,000 mg Q8H PRN IV PAIN SCALE 1-3 OR TEMP>100 09/13/24 10:45 Lactated Ringer's 1,002 ml @ 30 mls/hr Q24H IV 09/13/24 12:30 09/13/24 15:16 Potassium Chloride 100 ml @ 50 mls/hr Q2H IV 09/13/24 15:45 09/13/24 16:34 DC Vital Signs Vital Signs Date Time Temp Pulse Resp B/P (MAP) Pulse Ox O2 Delivery O2 Flow Rate FiO2 09/13/24 20:04 96 14 98/65 (76) 99 30 09/13/24 18:00 Mechanical Ventilator+ 09/13/24 16:15 100.1 100.1 09/12/24 07:44 0 Physical Exam Gen.: Patient lying in bed in medical ICU. Sedated, intubated on mechanical ventilator. Head: Normocephalic, atraumatic. Eyes: PERRLA. Ears: Normal external anatomy. Throat: Endotracheal tube and orogastric tube in place. Neck: Supple, trachea midline. Chest: Transmitted breath sounds bilaterally. Decreased air entry bilaterally. No wheezing. Bibasilar crackles. Cardiovascular: Positive S1, positive S2. Regular rate and rhythm. Abdomen: Positive bowel sounds in all 4 quadrants. Soft, nontender, nondistended. : Claudio in place. Normal external genitalia. Rectal: Deferred. Skin: Warm, dry. Intact. Extremities: 2+ radial pulses bilaterally. No lower extremity edema. Neuro: Sedated. Labs/Diagnostic Data Labs Test 09/13/24 17:50 09/13/24 15:59 09/13/24 07:17 09/13/24 03:57 Range/Units POC Glucose 161 H 70-106 mg/dl Hemoglobin 8.3 L 12.2-16.2 g/dL Hematocrit 24.8 L 36.0-46.0 % Blood Gas Specimen Type Arterial Blood Gas Sample Site Arterial line Blood Gas Patient Temperature 37.0 Arterial Blood Date Drawn [id number] Arterial Blood pH 7.354 7.350-7.450 Arterial Blood Partial Pressure CO2 32.2 32.0-45.0 mmHg Arterial Blood Partial Pressure O2 144.6 H 83.0-108.0 mmHg Arterial Blood HCO3 17.5 L 21.0-28.0 mmol/L Arterial Blood Oxygen Saturation 98.1 H 94.0-98.0 % Arterial Blood Base Excess -7.2 L -2.0-3.0 mmol/L Arterial Blood Oxyhemoglobin 97.2 94.0-98.0 % Arterial Blood Carboxyhemoglobin 0.3 L 0.5-1.5 % Arterial Blood Methemoglobin 0.6 0.0-1.5 % Gagan Test N/a Blood Gas Total Hemoglobin 8.00 L 12.0-16.0 g/dL Blood Gas Set Respiration Rate 14.0 Blood Gas Modality Vent - ac FiO2 % 50.0 Blood Gas Tidal Volume 500.0 Blood Gas PEEP or CPAP 5.0 Lactic Acid Level 1.3 0.4-2.0 mmol/L Test 09/13/24 03:15 09/12/24 18:30 09/12/24 16:35 09/12/24 09:41 Range/Units White Blood Count 10.9 H 4.4-10.8 10^3/uL Red Blood Count 2.93 L 4.0-5.20 10^6/uL Mean Corpuscular Volume 93.2 80.0-100.0 fL Mean Corpuscular Hemoglobin 30.9 28.0-32.0 pg Mean Corpuscular Hemoglobin Concent 33.1 32.0-36.0 g/dL Red Cell Distribution Width 15.4 H 11.8-14.3 % Platelet Count 179 140-450 10^3/uL Mean Platelet Volume 7.0 6.9-10.8 fL Neutrophils (%) (Auto) 70.9 37.0-80.0 % Lymphocytes (%) (Auto) 19.9 10.0-50.0 % Monocytes (%) (Auto) 8.7 0.0-12.0 % Eosinophils (%) (Auto) 0.1 0.0-7.0 % Basophils (%) (Auto) 0.4 0.0-2.0 % Neutrophils # (Auto) 7.8 1.6-8.6 10 ^3/uL Lymphocytes # (Auto) 2.2 0.4-5.4 10 ^3/uL Monocytes # (Auto) 1.0 0-1.3 10 ^3/uL Eosinophils # (Auto) 0 0-0.8 10 ^3/uL Basophils # (Auto) 0 0-0.2 10 ^3/uL Nucleated Red Blood Cells 0.1 % Sodium Level 149 #H 136-145 mmol/L Potassium Level 3.6 3.5-5.1 mmol/L Chloride Level 120 H 98-107 mmol/L Carbon Dioxide Level 19 L 20-31 mmol/L Anion Gap 10 5-15 Blood Urea Nitrogen 21 9-23 mg/dL Creatinine 0.50 L 0.550-1.02 mg/dL Glomerular Filtration Rate Calc 105 >90 mL/min BUN/Creatinine Ratio 42.0 H 10.0-20.0 Serum Glucose 171 H 74-106 mg/dL Calcium Level 8.2 L 8.7-10.4 mg/dL Total Bilirubin 0.4 0.2-1.0 mg/dL Aspartate Amino Transferase (AST) 11 L 13-40 U/L Alanine Aminotransferase (ALT) 13 7-40 U/L Alkaline Phosphatase 49 46-116 U/L Total Protein 4.6 L 5.7-8.2 g/dL Albumin 3.0 L 3.2-4.8 g/dL Blood Gas Critical Value Read Back Yes Blood Gas Notified Whom rohan Tyson Blood Gas Notified Time [id number] Blood Gas Notified By Nickie cope rrt Differential Total Cells Counted 100.0 100 Neutrophils % (Manual) 81 H 37.0-80.0 Band Neutrophils % (Manual) 0 Lymphocytes % (Manual) 14 10.0-50.0 Monocytes % (Manual) 5 0-12 Eosinophils % (Manual) 0 0-7 Basophils % (Manual) 0 0.0-2.0 Metamyelocytes % (manual) 0 Myelocytes % (Manual) 0 Promyelocytes % (Manual) 0 Blast Cells % (Manual) 0 Reactive Lymphocytes 0 Platelet Estimate Adequate Prothrombin Time 11.6 9.3-11.8 sec Prothrombin Time INR 1.11 0.9-1.15 Urine Color Colorless Yellow Urine Clarity Clear Clear Urine pH 7.0 5.0-9.0 Urine Specific [place] 1.028 1.001-1.035 Urine Protein Negative Negative Urine Ketones Negative Negative Urine Blood Negative Negative /uL Urine Nitrite Negative Negative Urine Bilirubin Negative Negative Urine Urobilinogen Normal Negative mg/dL Urine Leukocyte Esterase Negative Negative /uL Urine RBC <1 0 - 4 /hpf Urine Microscopic WBC 1 0-5 /HPF Urine Squamous Epithelial Cells Few <5 /hpf Urine Bacteria None seen None Seen /hpf Urine Glucose Normal Normal mg/dL Microbiology Date/Time Source Procedure Growth Status 09/12/24 21:19 Nose MRSA Screen - Final Complete 09/12/24 20:39 Sputum Gram Stain Pending Resulted 2/21/25 20:39 Sputum Respiratory Culture - Preliminary Resulted Assessment Impression: Acute hypoxic respiratory failure On mechanical ventilator GI hemorrhage Hematemesis d/t gastric ulcer Obesity BMI 31.9 Plan: s/p intubation on mechanical ventilator. CXR image and report reviewed. Devices in place. Bilateral opacities. No pneumothorax. No pleural effusion. ABG reviewed. Sedated on Fentanyl/Versed On AC mode; RR 14, VT 500, PEEP 5, FiO2 30% Titrate FIO2 to keep O2 saturation above 90%. VAP bundle. Daily ABG and CXR while intubated Sedate for ventilator synchrony Bloody stools - monitor hemoglobin GI recs appreciated Continue antibiotics. F/u cultures. Off Levophed Start pressors if necessary to maintain a mean arterial blood pressure greater than 65 mmHg. Monitor renal function Monitor electrolytes. Supplement as necessary. Monitor ins and outs. GI prophylaxis. DVT prophylaxis. Prognosis: Guarded/Poor given patient's multiple co-morbidities. Condition: Critical Rest of plan per hospitalist and other consultants. A total of 35 minutes of critical care time was spent reviewing the patient record, examining the patient, making a diagnostic and therapeutic plan, discussing this plan with the medical personnel, following up on diagnostic studies and following the patient for clinical stability excluding any and all procedures. At least 50% of this time was spent in direct, [id number] contact. Thank you, DACIA Villegas, for allowing me to participate in this patient's care. Further recommendations will depend on the patient's clinical course. Please do not hesitate to contact me if you have any questions or concerns. This medical document was created using an electronic medical record system with [employer] dictation system. Although these documentations are being carefully reviewed, there may still be some phonetic and typographical changes. The errors are purely typographical, due to imperfection on the software program, and do not reflect any compromise in the patient's medical care. Plan discussed with: Other (PAPI Cleary/DACIA Villegas/) KARTIK HUANG MD Sep 13, 2024 21:34
[2024-09-13 22:17] LABS: Hematocrit 23.7 % (36.0-46.0)
[2024-09-13 22:33] LABS: INR 1.04 (0.9-1.15)
[2024-09-14] VITALS (108 sets, daily range): BP systolic 68–133; BP diastolic 49–115; PULSE 87–101; RESP 9–18; TEMP 98.8–100; O2SAT 91–100
[2024-09-14 04:29] LABS: Basophils # (auto) 0 10 ^3/uL (0-0.2); Basophils % (auto) 0.4 % (0.0-2.0); Eosinophils # (auto) 0.2 10 ^3/uL (0-0.8); Lymphocytes # (auto) 2.1 10 ^3/uL (0.4-5.4); Mean Corpuscular Volume 92.4 fL (80.0-100.0)
[2024-09-14 04:31] LABS: Eosinophils % (auto) 1.9 % (0.0-7.0); Hematocrit 22.7 % (36.0-46.0); Hemoglobin 7.6 g/dL (12.2-16.2); Lymphocytes % (auto) 21.2 % (10.0-50.0); Mean Corpuscular Hgb Conc. 33.5 g/dL (32.0-36.0); Monocytes # (auto) 0.5 10 ^3/uL (0-1.3); Monocytes % (auto) 5.6 % (0.0-12.0); Neutrophils # (auto) 6.9 10 ^3/uL (1.6-8.6); Neutrophils % (auto) 70.9 % (37.0-80.0); Platelet Count (auto) 153 10^3/uL (140-450); Red Blood Cells 2.46 10^6/uL (4.0-5.20); Red Cell Distribution Width 15.2 % (11.8-14.3); White Blood Cell 9.7 10^3/uL (4.4-10.8)
[2024-09-14 04:33] LABS: Anion Gap 8 (5-15); Calcium 8.7 mg/dL (8.7-10.4); Carbon Dioxide 26 mmol/L (20-31)
[2024-09-14 04:39] LABS: BUN/Creatinine Ratio 33.3 (10.0-20.0); Blood Urea Nitrogen 16 mg/dL (9-23)
[2024-09-14 04:46] LABS: Chloride 116 mmol/L (98-107); Glucose 133 mg/dL (74-106); Potassium 3.4 mmol/L (3.5-5.1); Sodium 150 mmol/L (136-145)
[2024-09-14] MEDS: PANTOPRAZOLE 40 MG/10 ML VIAL INJ IV ONE (05:32)
--- NOTE | 2024-09-14 05:50 | DVH ---
EXAM: XY CHEST PORTABLE Indication: RECHECK LEFT BASILAR ATELECTASIS Technique: Frontal view of the chest. Comparison: XY CHEST PORTABLE on DOS: 09/13/24, XY CHEST PORTABLE on DOS: 09/12/24, XY CHEST PORTABLE o n DOS: 09/12/24, XY CHEST PORTABLE on DOS: 09/13/24 FINDINGS: LUNGS AND PLEURAL SPACES: Left basilar atelectasis or pneumonia. No pneumothorax. HEART: Unremarkable. No cardiomegaly. MEDIASTINUM: Unremarkable. Normal mediastinal contour. BONES/JOINTS: Unremarkable. No acute fracture. IMPRESSION: Left basilar atelectasis is unchanged compared to prior exam. Low lung volumes.
[2024-09-14 07:16] LABS: Base Excess -1.6 mmol/L (-2.0-3.0)
--- NOTE | 2024-09-14 09:08 | DVHPN2 ---
Progress Note - Dictate Date Seen: Sep 14, 2024 Medical Necessity Reason Pt with a Central, PICC or Fol: No Subjective The pt seen and examined. She remains intubated. No BM since yesterday. vital signs Vital Sign Date Time Temp Pulse Resp B/P (MAP) Pulse Ox O2 Delivery O2 Flow Rate FiO2 09/14/24 07:56 94 14 112/72 (85) 98 30 09/14/24 06:00 Mechanical Ventilator+ 09/14/24 06:00 99.1 99.1 09/12/24 07:44 0 Total Intake and Output 09/13/24 09/13/24 09/14/24 15:00 23:00 07:00 Intake Total 288.0 ml 1036.0 ml 656.5 ml Output Total 1450 ml 1475 ml Balance 288.0 ml -414.0 ml -818.5 ml medications Current Medications Medications Dose Ordered Sig/Leann Route Start Time Stop Time Status Last Admin Dose Admin Norepinephrine Bitartrate 250 ml @ 3.75 mls/hr Q24H IV 09/12/24 09:30 09/13/24 01:02 3.75 MLS/HR Nitroglycerin 0.4 mg Q5MINP PRN SL 09/12/24 14:45 Morphine Sulfate 2 mg Q30M PRN IV 09/12/24 14:45 Midazolam HCl 50 ml @ 1 mls/hr Q24H IV 09/12/24 15:15 09/14/24 05:33 7 MLS/HR Fentanyl Citrate 250 ml @ 2.5 mls/hr Q24H IV 09/12/24 15:15 09/14/24 02:43 7.5 MLS/HR Pantoprazole Sodium 50 ml @ 10 mls/hr Q5H IV 09/12/24 15:30 09/14/24 05:32 10 MLS/HR Diagnostic Test (Pha) 1 strip Q6HR 09/12/24 18:00 09/14/24 05:57 1 STRIP Insulin Human Regular Q6HR SC 09/12/24 18:00 09/14/24 05:59 2 UNITS Dextrose 50 ml UD PRN IV 09/12/24 16:45 Ondansetron HCl 4 mg Q4HPRN PRN IV 09/12/24 16:45 Hydralazine HCl 10 mg Q6HP PRN IV 09/12/24 16:45 Diphenhydramine HCl 25 mg Q4HP PRN IV 09/12/24 16:45 Vancomycin HCl 0 ml @ 0 mls/hr UD IV 09/13/24 02:00 Piperacillin Sod/ Tazobactam Sod 100 ml @ 25 mls/hr Q8H IV 09/13/24 10:00 09/14/24 01:33 25 MLS/HR Vancomycin HCl 250 ml @ 250 mls/hr Q12H IV 09/13/24 17:00 09/14/24 04:49 250 MLS/HR Acetaminophen 1,000 mg Q8H PRN IV 09/13/24 10:45 Lactated Ringer's 1,002 ml @ 30 mls/hr Q24H IV 09/13/24 12:30 09/13/24 15:16 30 MLS/HR objective Intubated Abd s/nt laboratory and microbiology Laboratory Tests 09/14/24 04:04 Test 09/14/24 04:04 Range/Units Serum Glucose 133 H 74-106 mg/dL Assessment/Plan 1) Acute UGI hemorrhage from post endoscopic mucosal resection of gastric lesion. s/p EGD with hemostasis by epi injection, clips, hemostatic powder. Currently is dropping to 7.6 today Rec: Cont IV protonix. Cont to monitor H&H serially We will plan to hace repeat EGD today to make sure bleeding resolved. d/w patient's family r/b/a and plans for today. Plan discussed with: Daughter CC Plasma Assessment Blood Product Administration S: [id number] KARINA MOREIRA MD Sep 14, 2024 09:08
--- NOTE | 2024-09-14 09:13 | DVHPN2 ---
Progress Note - Dictate Date Seen: Sep 14, 2024 Medical Necessity Reason Pt with a Central, PICC or Fol: No vital signs Vital Sign Date Time Temp Pulse Resp B/P (MAP) Pulse Ox O2 Delivery O2 Flow Rate FiO2 09/14/24 07:56 94 14 112/72 (85) 98 30 09/14/24 06:00 Mechanical Ventilator+ 09/14/24 06:00 99.1 99.1 09/12/24 07:44 0 Total Intake and Output 09/13/24 09/13/24 09/14/24 15:00 23:00 07:00 Intake Total 288.0 ml 1036.0 ml 656.5 ml Output Total 1450 ml 1475 ml Balance 288.0 ml -414.0 ml -818.5 ml medications Current Medications Medications Dose Ordered Sig/Leann Route Start Time Stop Time Status Last Admin Dose Admin Norepinephrine Bitartrate 250 ml @ 3.75 mls/hr Q24H IV 09/12/24 09:30 09/13/24 01:02 3.75 MLS/HR Nitroglycerin 0.4 mg Q5MINP PRN SL 09/12/24 14:45 Morphine Sulfate 2 mg Q30M PRN IV 09/12/24 14:45 Midazolam HCl 50 ml @ 1 mls/hr Q24H IV 09/12/24 15:15 09/14/24 05:33 7 MLS/HR Fentanyl Citrate 250 ml @ 2.5 mls/hr Q24H IV 09/12/24 15:15 09/14/24 02:43 7.5 MLS/HR Pantoprazole Sodium 50 ml @ 10 mls/hr Q5H IV 09/12/24 15:30 09/14/24 05:32 10 MLS/HR Diagnostic Test (Pha) 1 strip Q6HR 09/12/24 18:00 09/14/24 05:57 1 STRIP Insulin Human Regular Q6HR SC 09/12/24 18:00 09/14/24 05:59 2 UNITS Dextrose 50 ml UD PRN IV 09/12/24 16:45 Ondansetron HCl 4 mg Q4HPRN PRN IV 09/12/24 16:45 Hydralazine HCl 10 mg Q6HP PRN IV 09/12/24 16:45 Diphenhydramine HCl 25 mg Q4HP PRN IV 09/12/24 16:45 Vancomycin HCl 0 ml @ 0 mls/hr UD IV 09/13/24 02:00 Piperacillin Sod/ Tazobactam Sod 100 ml @ 25 mls/hr Q8H IV 09/13/24 10:00 09/14/24 01:33 25 MLS/HR Vancomycin HCl 250 ml @ 250 mls/hr Q12H IV 09/13/24 17:00 09/14/24 04:49 250 MLS/HR Acetaminophen 1,000 mg Q8H PRN IV 09/13/24 10:45 Lactated Ringer's 1,002 ml @ 30 mls/hr Q24H IV 09/13/24 12:30 09/13/24 15:16 30 MLS/HR objective General Appearance: alert, no distress HEENT: EOMI, PERRLA, normal external inspect of ears, no icterus, no nasal drainage Neck: no carotid bruit, no jugular venous distention (JVD), no lymphadenopathy Chest: normal thorax Respiratory: clear to auscultation, normal air movement Cardiovascular: regular rate and rhythm, no diastolic murmur, no jugular venous distention (JVD), no rub, no systolic murmur Abdominal: soft, no hepatomegaly, no mass, no splenomegaly, no tenderness Genitourinary: grossly normal external Musculoskeletal: no joint tenderness, no swelling Extremities: normal pulses, no calf tenderness, no clubbing, no cyanosis, no edema Skin: no bruising, no jaundice, no rash Neurological: alert, No focal deficit laboratory and microbiology Laboratory Tests 09/14/24 04:04 Test 09/14/24 04:04 Range/Units Serum Glucose 133 H 74-106 mg/dL Problem List 1. Hematemesis Medication, monitoring 2. GI Bleed GI Consult, Surgical Consult 3. Hypovolemic Shock Medication, monitoring 4. DM II hyperglycemia Insulin SS 5. Obesity Diet Education, monitoring Assessment/Plan Subjective: Patient remains intubated and sedated. Objective: I spoke with patient's daughter at bedside. Patient was admitted for acute GI hemorrhage. Patient was status post EGD and colonoscopy outpatient. Patient had emergent EGD yesterday with Dr. Bahena. Hemoglobin is 7.6. Patient had a repeat EGD today. No active signs or symptoms of bleeding. Leukocytosis has resolved. Chest x-ray shows left basilar atelectasis. Plan: Change IV fluids. Patient has mild hyponatremia. Replace electrolytes. Potassium is 3.4. Continue broad-spectrum antibiotics. Patient is on vancomycin and Zosyn. Plan discussed with: Patient, Other CC Plasma Assessment Blood Product Administration S: [id number] MICK ANTONIO NP Sep 14, 2024 09:13
[2024-09-14] MEDS ORDERED: EPINEPHrine HCL 1 MG/10 ML SYRG ONE (09:41)
[2024-09-14 09:52] LABS: Hemoglobin 7.6 g/dL (12.2-16.2)
[2024-09-14 09:54] LABS: Hematocrit 22.8 % (36.0-46.0)
[2024-09-14] MEDS: D5W/SOD CHL 0.45% 1,000 ML IV SCH (12:53)
[2024-09-14] MEDS: POTASSIUM CHL 20MEQ/100ML 100 ML IV SCH (13:00)
[2024-09-14 18:08] LABS: Hematocrit 23.2 % (36.0-46.0)
[2024-09-14] MEDS: PANTOPRAZOLE 40 MG/10 ML VIAL INJ IV SCH (21:35)
--- NOTE | 2024-09-14 23:19 | DVHPN2 ---
Progress Note - Dictate Date Seen: Sep 14, 2024 Medical Necessity Reason Pt with a Central, PICC or Fol: No Subjective Patient seen and examined at bedside. Sedated, intubated on mechanical ventilator. Overnight events reviewed. vital signs Vital Sign Date Time Temp Pulse Resp B/P (MAP) Pulse Ox O2 Delivery O2 Flow Rate FiO2 09/14/24 23:00 88 14 100/62 (75) 95 09/14/24 22:12 30 09/14/24 22:00 Mechanical Ventilator+ 09/14/24 19:45 99.4 99.4 09/12/24 07:44 0 Total Intake and Output 09/13/24 09/13/24 09/14/24 15:00 23:00 07:00 Intake Total 288.0 ml 1036.0 ml 711.0 ml Output Total 1450 ml 1475 ml Balance 288.0 ml -414.0 ml -764.0 ml medications Current Medications Medications Dose Ordered Sig/Leann Route Start Time Stop Time Status Last Admin Dose Admin Norepinephrine Bitartrate 250 ml @ 3.75 mls/hr Q24H IV 09/12/24 09:30 09/13/24 01:02 3.75 MLS/HR Nitroglycerin 0.4 mg Q5MINP PRN SL 09/12/24 14:45 Morphine Sulfate 2 mg Q30M PRN IV 09/12/24 14:45 Midazolam HCl 50 ml @ 1 mls/hr Q24H IV 09/12/24 15:15 09/14/24 22:00 6 MLS/HR Fentanyl Citrate 250 ml @ 2.5 mls/hr Q24H IV 09/12/24 15:15 09/14/24 02:43 7.5 MLS/HR Diagnostic Test (Pha) 1 strip Q6HR 09/12/24 18:00 09/14/24 18:13 1 STRIP Insulin Human Regular Q6HR SC 09/12/24 18:00 09/14/24 05:59 2 UNITS Dextrose 50 ml UD PRN IV 09/12/24 16:45 Ondansetron HCl 4 mg Q4HPRN PRN IV 09/12/24 16:45 Hydralazine HCl 10 mg Q6HP PRN IV 09/12/24 16:45 Diphenhydramine HCl 25 mg Q4HP PRN IV 09/12/24 16:45 Vancomycin HCl 0 ml @ 0 mls/hr UD IV 09/13/24 02:00 Piperacillin Sod/ Tazobactam Sod 100 ml @ 25 mls/hr Q8H IV 09/13/24 10:00 09/14/24 18:13 25 MLS/HR Acetaminophen 1,000 mg Q8H PRN IV 09/13/24 10:45 Pantoprazole Sodium 40 mg BID IV 09/14/24 22:00 09/14/24 21:35 40 MG Dextrose/Sodium Chloride 1,000 ml @ 30 mls/hr Q24H IV 09/14/24 12:30 09/14/24 12:53 30 MLS/HR Vancomycin HCl 250 ml @ 250 mls/hr Q10H IV 09/15/24 03:00 objective Gen.: Patient lying in bed in medical ICU. Sedated, intubated on mechanical ventilator. Head: Normocephalic, atraumatic. Eyes: PERRLA. Ears: Normal external anatomy. Throat: Endotracheal tube and orogastric tube in place. Neck: Supple, trachea midline. Chest: Transmitted breath sounds bilaterally. Decreased air entry bilaterally. No wheezing. Bibasilar crackles. Cardiovascular: Positive S1, positive S2. Regular rate and rhythm. Abdomen: Positive bowel sounds in all 4 quadrants. Soft, nontender, nondistended. : Claudio in place. Normal external genitalia. Rectal: Deferred. Skin: Warm, dry. Intact. Extremities: 2+ radial pulses bilaterally. No lower extremity edema. Neuro: Sedated. laboratory and microbiology Laboratory Tests 09/14/24 17:57 09/14/24 04:04 Test 09/14/24 04:04 Range/Units Serum Glucose 133 H 74-106 mg/dL Assessment/Plan Impression: Acute hypoxic respiratory failure On mechanical ventilator GI hemorrhage Hematemesis d/t gastric ulcer Obesity Events: Awake, alert, follows commands Remains on vent support On AC mode; RR 14, VT 500, PEEP 5, FiO2 30% Sedated on Versed., Fentanyl ABG reviewed, compensated. Continue antibiotics. F/u cultures. Monitor renal function Monitor electrolytes. Supplement as necessary. Hypernatremia, Na 150 Hypokalemia, supplemented Check mag in AM. S/p EGD - no new hemorrhage. Hgb trending down - continue to monitor CPAP in AM - PS 8, PEEP 5. Labs and imaging reviewed. Rest of plan as noted below. Plan: s/p intubation on mechanical ventilator. Sedated on Fentanyl/Versed On AC mode; RR 14, VT 500, PEEP 5, FiO2 30% Titrate FIO2 to keep O2 saturation above 90%. VAP bundle. Daily ABG and CXR while intubated Sedate for ventilator synchrony Bloody stools - monitor hemoglobin GI recs appreciated Continue antibiotics. F/u cultures. Pressors as necessary to maintain a mean arterial blood pressure greater than 65 mmHg. Monitor renal function Monitor electrolytes. Supplement as necessary. Monitor ins and outs. GI prophylaxis. DVT prophylaxis. Prognosis: Poor given patient's multiple co-morbidities. Condition: Critical Rest of plan per hospitalist and other consultants. A total of 35 minutes of critical care time was spent reviewing the patient record, examining the patient, making a diagnostic and therapeutic plan, discussing this plan with the medical personnel, following up on diagnostic studies and following the patient for clinical stability excluding any and all procedures. At least 50% of this time was spent in direct, [id number] contact. Thank you, DACIA Villegas, for allowing me to participate in this patient's care. Further recommendations will depend on the patient's clinical course. Please do not hesitate to contact me if you have any questions or concerns. This medical document was created using an electronic medical record system with [employer] dictation system. Although these documentations are being carefully reviewed, there may still be some phonetic and typographical changes. The errors are purely typographical, due to imperfection on the software program, and do not reflect any compromise in the patient's medical care. Dietary Evaluation Review Comments: 1) Advance to 60g CCHO diet when medically feasible, pending EPIC BEACON ANALYST approval 2) Follow-up with mold preparer 3) Refer to outpatient RD/CDCES for weight management 4) Continue to monitor appetite, labs, and skin integrity Expected Outcomes/Goals: 1) appetite and labs to improve 2) diet to advance 3) f/u in 5 days Plan discussed with: Other (PAPI Zeng) Critical Care Time(min): 35 CC Plasma Assessment Blood Product Administration S: [id number] KARTIK HUANG MD Sep 14, 2024 23:19
[2024-09-15] VITALS (67 sets, daily range): BP systolic 86–157; BP diastolic 44–87; PULSE 75–100; RESP 11–25; TEMP 98.3–101.6; O2SAT 93–100
[2024-09-15] MEDS: VANCOMYCIN 1GM/250ML KIT 250 ML IV SCH (03:00)
[2024-09-15 03:45] LABS: Basophils # (auto) 0 10 ^3/uL (0-0.2); Basophils % (auto) 0.4 % (0.0-2.0); Eosinophils # (auto) 0.3 10 ^3/uL (0-0.8); Eosinophils % (auto) 3.5 % (0.0-7.0); Hematocrit 22.1 % (36.0-46.0); Hemoglobin 7.6 g/dL (12.2-16.2); Lymphocytes % (auto) 23.3 % (10.0-50.0); Mean Corpuscular Hemoglobin 30.8 pg (28.0-32.0); Mean Corpuscular Hgb Conc. 34.2 g/dL (32.0-36.0); Mean Corpuscular Volume 90.1 fL (80.0-100.0); Monocytes # (auto) 0.5 10 ^3/uL (0-1.3); Monocytes % (auto) 6.1 % (0.0-12.0); Neutrophils # (auto) 5.8 10 ^3/uL (1.6-8.6); Neutrophils % (auto) 66.7 % (37.0-80.0); Platelet Count (auto) 136 10^3/uL (140-450); Red Blood Cells 2.45 10^6/uL (4.0-5.20); Red Cell Distribution Width 16.9 % (11.8-14.3); White Blood Cell 8.7 10^3/uL (4.4-10.8)
[2024-09-15 03:54] LABS: Alkaline Phosphatase 50 U/L (46-116); Anion Gap 7 (5-15); Bilirubin, Total 0.5 mg/dL (0.2-1.0); Blood Urea Nitrogen 10 mg/dL (9-23); Calcium 8.9 mg/dL (8.7-10.4); Carbon Dioxide 29 mmol/L (20-31)
[2024-09-15 03:55] LABS: Aspartate Aminotransferase < 8 U/L (13-40); Chloride 112 mmol/L (98-107); Glucose 117 mg/dL (74-106); Potassium 3.1 mmol/L (3.5-5.1); Sodium 148 mmol/L (136-145)
[2024-09-15 03:56] LABS: Alanine Aminotransferase 9 U/L (7-40); Albumin 3.1 g/dL (3.2-4.8); Total Protein 4.7 g/dL (5.7-8.2)
[2024-09-15 07:20] LABS: Base Excess 2.3 mmol/L (-2.0-3.0)
--- NOTE | 2024-09-15 08:33 | DVHPN2 ---
Progress Note - Dictate Date Seen: Sep 15, 2024 Medical Necessity Reason Pt with a Central, PICC or Fol: No Subjective The pt seen and examined. She remains intubated. Off sedation and is responsive. vital signs Vital Sign Date Time Temp Pulse Resp B/P (MAP) Pulse Ox O2 Delivery O2 Flow Rate FiO2 09/15/24 08:08 87 12 136/83 (100) 100 30 09/15/24 06:00 Mechanical Ventilator+ 09/15/24 05:15 98.3 98.3 Total Intake and Output 09/14/24 09/14/24 09/15/24 15:00 23:00 07:00 Intake Total 659.0 ml 704.0 ml 614.0 ml Output Total 1100 ml 770 ml Balance 659.0 ml -396.0 ml -156.0 ml medications Current Medications Medications Dose Ordered Sig/Leann Route Start Time Stop Time Status Last Admin Dose Admin Norepinephrine Bitartrate 250 ml @ 3.75 mls/hr Q24H IV 09/12/24 09:30 09/13/24 01:02 3.75 MLS/HR Nitroglycerin 0.4 mg Q5MINP PRN SL 09/12/24 14:45 Morphine Sulfate 2 mg Q30M PRN IV 09/12/24 14:45 Midazolam HCl 50 ml @ 1 mls/hr Q24H IV 09/12/24 15:15 09/15/24 05:49 4 MLS/HR Fentanyl Citrate 250 ml @ 2.5 mls/hr Q24H IV 09/12/24 15:15 09/15/24 05:49 7.5 MLS/HR Diagnostic Test (Pha) 1 strip Q6HR 09/12/24 18:00 09/15/24 05:33 1 STRIP Insulin Human Regular Q6HR SC 09/12/24 18:00 09/15/24 05:36 2 UNITS Dextrose 50 ml UD PRN IV 09/12/24 16:45 Ondansetron HCl 4 mg Q4HPRN PRN IV 09/12/24 16:45 Hydralazine HCl 10 mg Q6HP PRN IV 09/12/24 16:45 Diphenhydramine HCl 25 mg Q4HP PRN IV 09/12/24 16:45 Vancomycin HCl 0 ml @ 0 mls/hr UD IV 09/13/24 02:00 Piperacillin Sod/ Tazobactam Sod 100 ml @ 25 mls/hr Q8H IV 09/13/24 10:00 09/15/24 02:29 25 MLS/HR Acetaminophen 1,000 mg Q8H PRN IV 09/13/24 10:45 Pantoprazole Sodium 40 mg BID IV 09/14/24 22:00 09/14/24 21:35 40 MG Dextrose/Sodium Chloride 1,000 ml @ 30 mls/hr Q24H IV 09/14/24 12:30 09/14/24 12:53 30 MLS/HR Vancomycin HCl 250 ml @ 250 mls/hr Q10H IV 09/15/24 03:00 09/15/24 03:00 250 MLS/HR Potassium Chloride 100 ml @ 50 mls/hr Q2H IV 09/15/24 06:30 09/15/24 10:29 objective Intubated Abd s/nt laboratory and microbiology Laboratory Tests 09/15/24 03:14 Test 09/15/24 03:14 Range/Units Serum Glucose 117 H 74-106 mg/dL Assessment/Plan 1) Acute UGI hemorrhage from post endoscopic mucosal resection of gastric lesion. s/p EGD with hemostasis by epi injection, clips, hemostatic powder. s/p repeat EGD 09/14/24 showing no further bleeding Hgb has remained stable. Rec: Cont IV protonix. Cont to monitor H&H serially Extubation per pulm today. May start Protonix 40mg PO BID and Sucralfate 1g BID when able to take PO meds. Dietary Evaluation Review Comments: 1) Advance to 60g CCHO diet when medically feasible, pending [facility] approval 2) Follow-up with tile molder 3) Refer to outpatient RD/[facility] for weight management 4) Continue to monitor appetite, labs, and skin integrity Expected Outcomes/Goals: 1) appetite and labs to improve 2) diet to advance 3) f/u in 5 days Plan discussed with: Other CC Plasma Assessment Blood Product Administration S: [id number] KARINA MOREIRA MD Sep 15, 2024 08:33
[2024-09-15] MEDS: POTASSIUM CHL 20MEQ/100ML 100 ML IV SCH (09:51)
[2024-09-15 09:54] LABS: Base Excess 2.3 mmol/L (-2.0-3.0)
[2024-09-15] MEDS: ACETAMINOPHEN IV 1000 MG/100ML (10MG/ML) IV PRN (11:59)
--- NOTE | 2024-09-15 12:31 | DVHPN2 ---
Progress Note - Dictate Date Seen: Sep 15, 2024 Medical Necessity Reason Pt with a Central, PICC or Fol: No vital signs Vital Sign Date Time Temp Pulse Resp B/P (MAP) Pulse Ox O2 Delivery O2 Flow Rate FiO2 09/15/24 11:30 99 15 100 09/15/24 10:10 5.0 09/15/24 10:00 Cool Aerosol 28 28 09/15/24 08:00 99.7 99.7 Total Intake and Output 09/14/24 09/14/24 09/15/24 15:00 23:00 07:00 Intake Total 659.0 ml 704.0 ml 669.0 ml Output Total 1100 ml 770 ml Balance 659.0 ml -396.0 ml -101.0 ml medications Current Medications Medications Dose Ordered Sig/Leann Route Start Time Stop Time Status Last Admin Dose Admin Norepinephrine Bitartrate 250 ml @ 3.75 mls/hr Q24H IV 09/12/24 09:30 09/13/24 01:02 3.75 MLS/HR Nitroglycerin 0.4 mg Q5MINP PRN SL 09/12/24 14:45 Morphine Sulfate 2 mg Q30M PRN IV 09/12/24 14:45 Midazolam HCl 50 ml @ 1 mls/hr Q24H IV 09/12/24 15:15 09/15/24 05:49 4 MLS/HR Fentanyl Citrate 250 ml @ 2.5 mls/hr Q24H IV 09/12/24 15:15 09/15/24 05:49 7.5 MLS/HR Diagnostic Test (Pha) 1 strip Q6HR 09/12/24 18:00 09/15/24 11:48 1 STRIP Insulin Human Regular Q6HR SC 09/12/24 18:00 09/15/24 05:36 2 UNITS Dextrose 50 ml UD PRN IV 09/12/24 16:45 Ondansetron HCl 4 mg Q4HPRN PRN IV 09/12/24 16:45 Hydralazine HCl 10 mg Q6HP PRN IV 09/12/24 16:45 Diphenhydramine HCl 25 mg Q4HP PRN IV 09/12/24 16:45 Vancomycin HCl 0 ml @ 0 mls/hr UD IV 09/13/24 02:00 Piperacillin Sod/ Tazobactam Sod 100 ml @ 25 mls/hr Q8H IV 09/13/24 10:00 09/15/24 09:38 25 MLS/HR Acetaminophen 1,000 mg Q8H PRN IV 09/13/24 10:45 09/15/24 11:59 1,000 MG Pantoprazole Sodium 40 mg BID IV 09/14/24 22:00 09/15/24 09:38 40 MG Dextrose/Sodium Chloride 1,000 ml @ 30 mls/hr Q24H IV 09/14/24 12:30 09/14/24 12:53 30 MLS/HR Vancomycin HCl 250 ml @ 250 mls/hr Q10H IV 09/15/24 03:00 09/15/24 03:00 250 MLS/HR objective General Appearance: alert, no distress HEENT: EOMI, PERRLA, normal external inspect of ears, no icterus, no nasal drainage Neck: no carotid bruit, no jugular venous distention (JVD), no lymphadenopathy Chest: normal thorax Respiratory: clear to auscultation, normal air movement Cardiovascular: regular rate and rhythm, no diastolic murmur, no jugular venous distention (JVD), no rub, no systolic murmur Abdominal: soft, no hepatomegaly, no mass, no splenomegaly, no tenderness Genitourinary: grossly normal external Musculoskeletal: no joint tenderness, no swelling Extremities: normal pulses, no calf tenderness, no clubbing, no cyanosis, no edema Skin: no bruising, no jaundice, no rash Neurological: alert, No focal deficit laboratory and microbiology Laboratory Tests 09/15/24 03:14 Test 09/15/24 03:14 Range/Units Serum Glucose 117 H 74-106 mg/dL Problem List 1. Hematemesis Medication, monitoring 2. GI Bleed GI Consult, Surgical Consult 3. Hypovolemic Shock Medication, monitoring 4. DM II hyperglycemia Insulin SS 5. Obesity Diet Education, monitoring Assessment/Plan Subjective: Patient recently got extubated. Objective: I spoke with patient's daughter at bedside. Patient appears to be slightly confused. She is Amharic-speaking. Patient was extubated at 10 AM today. She is currently on a cool mist mask. I was updated by RN later today. Patient did fail her swallow eval. Patient hemoglobin is stable at 7.6. Repeat EGD done yesterday shows no further signs or symptoms of bleeding. Patient was emergently admitted on 09/12/2024 for bleeding status post outpatient colonoscopy and EGD. Plan: Continue PPI. Continue antibiotics for sepsis. Monitor daily labs. Repeat swallow eval when more awake. Dietary Evaluation Review Comments: 1) Advance to 60g CCHO diet when medically feasible, pending HEAT TREAT OPERATOR approval 2) Follow-up with coke burner 3) Refer to outpatient RD/CDCES for weight management 4) Continue to monitor appetite, labs, and skin integrity Expected Outcomes/Goals: 1) appetite and labs to improve 2) diet to advance 3) f/u in 5 days Plan discussed with: Patient, Other CC Plasma Assessment Blood Product Administration S: [id number] MICK ANTONIO NP Sep 15, 2024 12:31
[2024-09-15] MEDS ORDERED: CLINIMIX PER PHARMACY 0 ML IV SCH (13:00)
[2024-09-15 13:38] LABS: Magnesium 1.7 mg/dL (1.6-2.6)
[2024-09-15 13:39] LABS: Phosphorus 2.8 mg/dL (2.4-5.1)
[2024-09-15] MEDS ORDERED: DEXTROSE (50%) 50ML SYRG IV SCH (14:00)
[2024-09-15] MEDS: POTASSIUM PHOSPHATE 26.4 MEQ in SODIUM CHL 0.9% 100 ML IV ONE (16:14)
[2024-09-15] MEDS: InsuLIN REG 1unit/0.01ml Soln (100units/ml) SC SCH (18:00)
[2024-09-15] MEDS: ACCU-CHEK COMFORT CURVE STRIP VI SCH (18:19)
[2024-09-15 18:48] LABS: Anion Gap 6 (5-15); Carbon Dioxide 28 mmol/L (20-31)
[2024-09-15 18:50] LABS: Basophils # (auto) 0 10 ^3/uL (0-0.2); Hemoglobin 7.5 g/dL (12.2-16.2); Lymphocytes # (auto) 1.9 10 ^3/uL (0.4-5.4); Mean Corpuscular Hemoglobin 30.3 pg (28.0-32.0); Mean Corpuscular Hgb Conc. 33.6 g/dL (32.0-36.0); Platelet Count (auto) 157 10^3/uL (140-450); White Blood Cell 8.4 10^3/uL (4.4-10.8)
[2024-09-15 18:53] LABS: BUN/Creatinine Ratio 12.8 (10.0-20.0); Basophils % (auto) 0.5 % (0.0-2.0); Eosinophils # (auto) 0.3 10 ^3/uL (0-0.8); Eosinophils % (auto) 3.1 % (0.0-7.0); Hematocrit 22.5 % (36.0-46.0); Lymphocytes % (auto) 22.5 % (10.0-50.0); Mean Corpuscular Volume 90.2 fL (80.0-100.0); Monocytes # (auto) 0.6 10 ^3/uL (0-1.3); Monocytes % (auto) 6.7 % (0.0-12.0); Neutrophils # (auto) 5.6 10 ^3/uL (1.6-8.6); Neutrophils % (auto) 67.2 % (37.0-80.0); Nucleated Red Blood Cells % 0.1 %; Red Blood Cells 2.49 10^6/uL (4.0-5.20); Red Cell Distribution Width 16.5 % (11.8-14.3)
[2024-09-15 19:05] LABS: Blood Urea Nitrogen 6 mg/dL (9-23); Calcium 8.6 mg/dL (8.7-10.4); Chloride 111 mmol/L (98-107); Glucose 117 mg/dL (74-106); Potassium 3.1 mmol/L (3.5-5.1); Sodium 145 mmol/L (136-145)
[2024-09-15] MEDS: AMINO ACID INFUSION IN D10W 1,000 ML IV SCH (21:53)
--- NOTE | 2024-09-15 23:01 | DVHPN2 ---
Progress Note - Dictate Date Seen: Sep 15, 2024 Medical Necessity Reason Pt with a Central, PICC or Fol: No Subjective Patient seen and examined at bedside. S/p extubation, on supplemental oxygen Overnight events reviewed. vital signs Vital Sign Date Time Temp Pulse Resp B/P (MAP) Pulse Ox O2 Delivery O2 Flow Rate FiO2 09/15/24 22:00 86 17 125/71 (89) 97 09/15/24 22:00 Nasal Cannula* 1 24 09/15/24 20:00 98.6 98.6 Total Intake and Output 09/14/24 09/14/24 09/15/24 15:00 23:00 07:00 Intake Total 659.0 ml 704.0 ml 669.0 ml Output Total 1100 ml 770 ml Balance 659.0 ml -396.0 ml -101.0 ml medications Current Medications Medications Dose Ordered Sig/Leann Route Start Time Stop Time Status Last Admin Dose Admin Norepinephrine Bitartrate 250 ml @ 3.75 mls/hr Q24H IV 09/12/24 09:30 09/13/24 01:02 3.75 MLS/HR Nitroglycerin 0.4 mg Q5MINP PRN SL 09/12/24 14:45 Morphine Sulfate 2 mg Q30M PRN IV 09/12/24 14:45 Midazolam HCl 50 ml @ 1 mls/hr Q24H IV 09/12/24 15:15 09/15/24 05:49 4 MLS/HR Fentanyl Citrate 250 ml @ 2.5 mls/hr Q24H IV 09/12/24 15:15 09/15/24 05:49 7.5 MLS/HR Ondansetron HCl 4 mg Q4HPRN PRN IV 09/12/24 16:45 Hydralazine HCl 10 mg Q6HP PRN IV 09/12/24 16:45 Diphenhydramine HCl 25 mg Q4HP PRN IV 09/12/24 16:45 Vancomycin HCl 0 ml @ 0 mls/hr UD IV 09/13/24 02:00 Piperacillin Sod/ Tazobactam Sod 100 ml @ 25 mls/hr Q8H IV 09/13/24 10:00 09/15/24 18:16 25 MLS/HR Acetaminophen 1,000 mg Q8H PRN IV 09/13/24 10:45 09/15/24 11:59 1,000 MG Pantoprazole Sodium 40 mg BID IV 09/14/24 22:00 09/15/24 21:54 40 MG Dextrose/Sodium Chloride 1,000 ml @ 30 mls/hr Q24H IV 09/14/24 12:30 09/15/24 18:20 30 MLS/HR Vancomycin HCl 250 ml @ 250 mls/hr Q10H IV 09/15/24 03:00 09/15/24 22:58 250 MLS/HR Amino Acids 0 ml @ 0 mls/hr PER PHARMACY IV 09/15/24 13:00 Diagnostic Test (Pha) 1 strip Q6HR 09/15/24 18:00 09/15/24 18:19 1 STRIP Insulin Human Regular FOLLOW SLIDING SCALE Q6HR SC 09/15/24 18:00 Dextrose 50 ml UD IV 09/15/24 14:00 Amino Acids/ Electrolytes/ Dextrose 1,000 ml @ 41 mls/hr DAILY@2200 IV 09/15/24 22:00 09/15/24 21:53 41 MLS/HR objective Gen.: Patient lying in bed in no apparent distress. On supplemental oxygen. Head: Normocephalic, atraumatic. Eyes: EOMI/PERRLA. Ears: Normal hearing. Normal anatomy. Neck/trachea: Trachea midline, supple. Nose: Normal external anatomy. Mouth: Moist mucous membranes. Chest: Decreased air entry bilaterally. No wheezing or rhonchi. Cardiovascular: Positive S1, positive S2. Regular rate and rhythm. Abdomen: Positive bowel sounds in all 4 quadrants. Soft, non-tender, non- distended. : Deferred. Rectal: Deferred. Skin: Warm, dry. Intact. Extremities: 2+ radial pulses bilaterally. No lower extremity edema. Neuro: Awake, alert, oriented x3. No gross motor or sensory deficits. Cranial nerves II through XII intact. Gait not assessed. laboratory and microbiology Laboratory Tests 09/15/24 18:07 Test 09/15/24 18:07 Range/Units Serum Glucose 117 H 74-106 mg/dL Assessment/Plan Impression: Acute hypoxic respiratory failure On mechanical ventilator GI hemorrhage Hematemesis d/t gastric ulcer Obesity BMI 31.9 Events: Monitor hemoglobin Continue Protonix drip GI recs appreciated ABG reviewed, compensated. Vent support - on AC mode; RR 14, VT 500, PEEP 5, FiO2 30% Patient tolerated CPAP today and was extubated uneventfully Currently on supplemental oxygen Continue antibiotics. F/u cultures. Monitor renal function Monitor electrolytes. Supplement as necessary. Potassium supplementation S/p EGD - no new hemorrhage. Hgb trending down - continue to monitor Labs and imaging reviewed. Rest of plan as noted below. Plan: s/p extubation Supplemental oxygen Titrate to keep O2 saturation above 90%. Off sedation Bloody stools - monitor hemoglobin GI recs appreciated Continue antibiotics. F/u cultures. Pressors as necessary to maintain a mean arterial blood pressure greater than 65 mmHg. Monitor renal function Monitor electrolytes. Supplement as necessary. Monitor ins and outs. GI prophylaxis. DVT prophylaxis. Prognosis: Poor given patient's multiple co-morbidities. Condition: Critical Rest of plan per hospitalist and other consultants. A total of 35 minutes of critical care time was spent reviewing the patient record, examining the patient, making a diagnostic and therapeutic plan, discussing this plan with the medical personnel, following up on diagnostic studies and following the patient for clinical stability excluding any and all procedures. At least 50% of this time was spent in direct, [id number] contact. Thank you, DACIA Villegas, for allowing me to participate in this patient's care. Further recommendations will depend on the patient's clinical course. Please do not hesitate to contact me if you have any questions or concerns. This medical document was created using an electronic medical record system with [employer] dictation system. Although these documentations are being carefully reviewed, there may still be some phonetic and typographical changes. The errors are purely typographical, due to imperfection on the software program, and do not reflect any compromise in the patient's medical care. Dietary Evaluation Review Comments: 1) Advance to 60g CCHO diet when medically feasible, pending ELECTRICIAN SUPERVISOR AIRPLANE approval 2) Follow-up with ordnance truck installation mechanic 3) Refer to outpatient RD/[facility] for weight management 4) Continue to monitor appetite, labs, and skin integrity Expected Outcomes/Goals: 1) appetite and labs to improve 2) diet to advance 3) f/u in 5 days Plan discussed with: Other (PAPI Penaloza/Radha) Critical Care Time(min): 35 CC Plasma Assessment Blood Product Administration S: [id number] KARTIK HUANG MD Sep 15, 2024 23:01
[2024-09-16] VITALS (25 sets, daily range): BP systolic 103–140; BP diastolic 48–81; PULSE 75–91; RESP 11–23; TEMP 98.3–100; O2SAT 92–99
[2024-09-16 04:08] LABS: Basophils # (auto) 0 10 ^3/uL (0-0.2); Basophils % (auto) 0.5 % (0.0-2.0); Eosinophils # (auto) 0.3 10 ^3/uL (0-0.8); Eosinophils % (auto) 4.1 % (0.0-7.0); Hematocrit 21.4 % (36.0-46.0); Hemoglobin 7.3 g/dL (12.2-16.2); Lymphocytes # (auto) 1.8 10 ^3/uL (0.4-5.4); Lymphocytes % (auto) 24.2 % (10.0-50.0); Mean Corpuscular Hemoglobin 30.8 pg (28.0-32.0); Mean Corpuscular Hgb Conc. 34.2 g/dL (32.0-36.0); Mean Corpuscular Volume 89.9 fL (80.0-100.0); Monocytes # (auto) 0.5 10 ^3/uL (0-1.3); Monocytes % (auto) 6.3 % (0.0-12.0); Neutrophils # (auto) 4.8 10 ^3/uL (1.6-8.6); Neutrophils % (auto) 64.9 % (37.0-80.0); Platelet Count (auto) 171 10^3/uL (140-450); Red Blood Cells 2.38 10^6/uL (4.0-5.20); White Blood Cell 7.5 10^3/uL (4.4-10.8)
[2024-09-16 04:26] LABS: Alanine Aminotransferase 18 U/L (7-40); Albumin 3.2 g/dL (3.2-4.8); Alkaline Phosphatase 57 U/L (46-116); Anion Gap 9 (5-15); BUN/Creatinine Ratio 11.8 (10.0-20.0); Bilirubin, Total 0.4 mg/dL (0.2-1.0); Carbon Dioxide 28 mmol/L (20-31); Magnesium 1.7 mg/dL (1.6-2.6); Phosphorus 3.6 mg/dL (2.4-5.1); Triglycerides 123 mg/dL (< 150)
[2024-09-16 04:54] LABS: Aspartate Aminotransferase 11 U/L (13-40); Blood Urea Nitrogen 6 mg/dL (9-23); Calcium 8.6 mg/dL (8.7-10.4); Chloride 109 mmol/L (98-107); Glucose 119 mg/dL (74-106); Potassium 2.7 mmol/L (3.5-5.1); Sodium 146 mmol/L (136-145)
[2024-09-16] MEDS ORDERED: POTASSIUM CHL 20MEQ/100ML 100 ML IV ONE (05:15)
[2024-09-16] MEDS: POTASSIUM CHL 20MEQ/100ML 100 ML IV SCH (05:30)
--- NOTE | 2024-09-16 09:01 | MEDREC ---
[facility] Intervention Section I [facility] Intervention: Deescalate AB based on CS (PLEASE CONSIDER DE-ESCALATION BASED ON CULTURE RESULTS) TIGRE EDWARD PHARMACIST Sep 16, 2024 09:01
--- NOTE | 2024-09-16 15:41 | DVHPN2 ---
Progress Note - Dictate Date Seen: Sep 16, 2024 Medical Necessity Reason Pt with a Central, PICC or Fol: No Subjective The pt seen and examined. The pt was extubated this morning. She is doing well. vital signs Vital Sign Date Time Temp Pulse Resp B/P (MAP) Pulse Ox O2 Delivery O2 Flow Rate FiO2 09/16/24 14:00 81 15 122/69 (86) 96 09/16/24 14:00 Nasal Cannula* 2 28 09/16/24 12:34 99.1 99.1 Total Intake and Output 09/15/24 09/15/24 09/16/24 15:00 23:00 07:00 Intake Total 665 ml 682.334 ml 847 ml Output Total 1275 ml 1800 ml Balance 665 ml -592.666 ml -953 ml medications Current Medications Medications Dose Ordered Sig/Leann Route Start Time Stop Time Status Last Admin Dose Admin Norepinephrine Bitartrate 250 ml @ 3.75 mls/hr Q24H IV 09/12/24 09:30 09/13/24 01:02 3.75 MLS/HR Nitroglycerin 0.4 mg Q5MINP PRN SL 09/12/24 14:45 Morphine Sulfate 2 mg Q30M PRN IV 09/12/24 14:45 Midazolam HCl 50 ml @ 1 mls/hr Q24H IV 09/12/24 15:15 09/15/24 05:49 4 MLS/HR Fentanyl Citrate 250 ml @ 2.5 mls/hr Q24H IV 09/12/24 15:15 09/15/24 05:49 7.5 MLS/HR Ondansetron HCl 4 mg Q4HPRN PRN IV 09/12/24 16:45 Hydralazine HCl 10 mg Q6HP PRN IV 09/12/24 16:45 Diphenhydramine HCl 25 mg Q4HP PRN IV 09/12/24 16:45 Vancomycin HCl 0 ml @ 0 mls/hr UD IV 09/13/24 02:00 Piperacillin Sod/ Tazobactam Sod 100 ml @ 25 mls/hr Q8H IV 09/13/24 10:00 09/16/24 11:12 25 MLS/HR Acetaminophen 1,000 mg Q8H PRN IV 09/13/24 10:45 09/15/24 11:59 1,000 MG Dextrose/Sodium Chloride 1,000 ml @ 30 mls/hr Q24H IV 09/14/24 12:30 09/15/24 18:20 30 MLS/HR Amino Acids 0 ml @ 0 mls/hr PER PHARMACY IV 09/15/24 13:00 Diagnostic Test (Pha) 1 strip Q6HR 09/15/24 18:00 09/16/24 11:40 1 STRIP Insulin Human Regular FOLLOW SLIDING SCALE Q6HR SC 09/15/24 18:00 09/16/24 05:45 2 UNITS Dextrose 50 ml UD IV 09/15/24 14:00 Amino Acids/ Electrolytes/ Dextrose 1,000 ml @ 41 mls/hr DAILY@2200 IV 09/15/24 22:00 09/15/24 21:53 41 MLS/HR Vancomycin HCl 250 ml @ 250 mls/hr Q8H IV 09/16/24 17:00 Sucralfate 1 gm BID PO 09/16/24 22:00 Pantoprazole Sodium 40 mg BID@0600,1700 PO 09/16/24 17:00 objective Intubated Abd s/nt laboratory and microbiology Laboratory Tests 09/16/24 03:21 Test 09/16/24 03:21 Range/Units Serum Glucose 119 H 74-106 mg/dL Assessment/Plan 1) Acute UGI hemorrhage from post endoscopic mucosal resection of gastric lesion. s/p EGD with hemostasis by epi injection, clips, hemostatic powder. s/p repeat EGD 09/14/24 showing no further bleeding Hgb has remained stable. Rec: Protonix 40mg PO BID Sucralfate 1g BID Cardiac diet Cont to monitor H&H serially Ok to down grade. Anticipate d/c home tomorrow. f/u with Dr. Doty in 2 weeks Dietary Evaluation Review Comments: 1) Advance to 60g CCHO diet when medically feasible, pending TRAFFIC CLERK approval 2) Follow-up with cargo surveyor 3) Refer to outpatient RD/CDCES for weight management 4) Continue to monitor appetite, labs, and skin integrity Expected Outcomes/Goals: 1) appetite and labs to improve 2) diet to advance 3) f/u in 5 days Plan discussed with: Patient CC Plasma Assessment Blood Product Administration S: [id number] KARINA MOREIRA MD Sep 16, 2024 15:41
--- NOTE | 2024-09-16 16:18 | DVHPN2 ---
Progress Note - Dictate Date Seen: Sep 16, 2024 Medical Necessity Reason Pt with a Central, PICC or Fol: No vital signs Vital Sign Date Time Temp Pulse Resp B/P (MAP) Pulse Ox O2 Delivery O2 Flow Rate FiO2 09/16/24 16:00 98.3 82 20 112/56 (74) 94 98.3 09/16/24 14:00 Nasal Cannula* 2 28 Total Intake and Output 09/15/24 09/15/24 09/16/24 15:00 23:00 07:00 Intake Total 665 ml 682.334 ml 918 ml Output Total 1275 ml 1800 ml Balance 665 ml -592.666 ml -882 ml medications Current Medications Medications Dose Ordered Sig/Leann Route Start Time Stop Time Status Last Admin Dose Admin Norepinephrine Bitartrate 250 ml @ 3.75 mls/hr Q24H IV 09/12/24 09:30 09/13/24 01:02 3.75 MLS/HR Nitroglycerin 0.4 mg Q5MINP PRN SL 09/12/24 14:45 Morphine Sulfate 2 mg Q30M PRN IV 09/12/24 14:45 Midazolam HCl 50 ml @ 1 mls/hr Q24H IV 09/12/24 15:15 09/15/24 05:49 4 MLS/HR Fentanyl Citrate 250 ml @ 2.5 mls/hr Q24H IV 09/12/24 15:15 09/15/24 05:49 7.5 MLS/HR Ondansetron HCl 4 mg Q4HPRN PRN IV 09/12/24 16:45 Hydralazine HCl 10 mg Q6HP PRN IV 09/12/24 16:45 Diphenhydramine HCl 25 mg Q4HP PRN IV 09/12/24 16:45 Vancomycin HCl 0 ml @ 0 mls/hr UD IV 09/13/24 02:00 Piperacillin Sod/ Tazobactam Sod 100 ml @ 25 mls/hr Q8H IV 09/13/24 10:00 09/16/24 11:12 25 MLS/HR Acetaminophen 1,000 mg Q8H PRN IV 09/13/24 10:45 09/15/24 11:59 1,000 MG Dextrose/Sodium Chloride 1,000 ml @ 30 mls/hr Q24H IV 09/14/24 12:30 09/15/24 18:20 30 MLS/HR Amino Acids 0 ml @ 0 mls/hr PER PHARMACY IV 09/15/24 13:00 Diagnostic Test (Pha) 1 strip Q6HR 09/15/24 18:00 09/16/24 11:40 1 STRIP Insulin Human Regular FOLLOW SLIDING SCALE Q6HR SC 09/15/24 18:00 09/16/24 05:45 2 UNITS Dextrose 50 ml UD IV 09/15/24 14:00 Amino Acids/ Electrolytes/ Dextrose 1,000 ml @ 41 mls/hr DAILY@2200 IV 09/15/24 22:00 09/15/24 21:53 41 MLS/HR Vancomycin HCl 250 ml @ 250 mls/hr Q8H IV 09/16/24 17:00 Sucralfate 1 gm BID PO 09/16/24 22:00 Pantoprazole Sodium 40 mg BID@0600,1700 PO 09/16/24 17:00 objective General Appearance: alert, no distress HEENT: EOMI, PERRLA, normal external inspect of ears, no icterus, no nasal drainage Neck: no carotid bruit, no jugular venous distention (JVD), no lymphadenopathy Chest: normal thorax Respiratory: clear to auscultation, normal air movement Cardiovascular: regular rate and rhythm, no diastolic murmur, no jugular venous distention (JVD), no rub, no systolic murmur Abdominal: soft, no hepatomegaly, no mass, no splenomegaly, no tenderness Genitourinary: grossly normal external Musculoskeletal: no joint tenderness, no swelling Extremities: normal pulses, no calf tenderness, no clubbing, no cyanosis, no edema Skin: no bruising, no jaundice, no rash Neurological: alert, No focal deficit laboratory and microbiology Laboratory Tests 09/16/24 03:21 Test 09/16/24 03:21 Range/Units Serum Glucose 119 H 74-106 mg/dL Problem List 1. Hematemesis Medication, monitoring 2. GI Bleed GI Consult, Surgical Consult 3. Hypovolemic Shock Medication, monitoring 4. DM II hyperglycemia Insulin SS 5. Obesity Diet Education, monitoring Assessment/Plan Subjective: Patient is awake and alert. Objective: Bhutanese-speaking patient. Recently extubated yesterday. Status post EGD on 09/12 and 09/14. Hemoglobin is 7.3; one unit of packed red blood cells was ordered. Patient is currently on Protonix and Carafate. Plan: Continue current treatment. Wean down Clinimix. Patient is doing well, passed swallow evaluation, and has been eating. PT evaluation completed. Patient is stable for downgrade to telemetry floor. Dietary Evaluation Review Comments: 1) Advance to 60g CCHO diet when medically feasible, pending MULTIMEDIA AUTHORING SPECIALIST approval 2) Follow-up with keeper helper 3) Refer to outpatient RD/CDCES for weight management 4) Continue to monitor appetite, labs, and skin integrity Expected Outcomes/Goals: 1) appetite and labs to improve 2) diet to advance 3) f/u in 5 days Plan discussed with: Patient, Other CC Plasma Assessment Blood Product Administration S: [id number] MICK ANTONIO NP Sep 16, 2024 16:18
[2024-09-16] MEDS: VANCOMYCIN 1GM/250ML KIT 250 ML IV SCH (17:20)
[2024-09-16] MEDS: PANTOPRAZOLE 40 MG TAB PO SCH (17:20)
[2024-09-16] MEDS: SUCRALFATE 1 GM TAB PO SCH (21:19)
--- NOTE | 2024-09-16 22:44 | DVHPN2 ---
Progress Note - Dictate Date Seen: Sep 16, 2024 Medical Necessity Reason Pt with a Central, PICC or Fol: No Subjective Patient seen and examined at bedside. remains on supplemental oxygen Overnight events reviewed. vital signs Vital Sign Date Time Temp Pulse Resp B/P (MAP) Pulse Ox O2 Delivery O2 Flow Rate FiO2 09/16/24 20:00 98.9 81 19 133/68 (89) 96 98.9 09/16/24 16:00 Nasal Cannula* 2 28 Total Intake and Output 09/15/24 09/15/24 09/16/24 15:00 23:00 07:00 Intake Total 665 ml 682.334 ml 918 ml Output Total 1275 ml 1800 ml Balance 665 ml -592.666 ml -882 ml medications Current Medications Medications Dose Ordered Sig/Leann Route Start Time Stop Time Status Last Admin Dose Admin Nitroglycerin 0.4 mg Q5MINP PRN SL 09/12/24 14:45 Morphine Sulfate 2 mg Q30M PRN IV 09/12/24 14:45 Ondansetron HCl 4 mg Q4HPRN PRN IV 09/12/24 16:45 Hydralazine HCl 10 mg Q6HP PRN IV 09/12/24 16:45 Diphenhydramine HCl 25 mg Q4HP PRN IV 09/12/24 16:45 Vancomycin HCl 0 ml @ 0 mls/hr UD IV 09/13/24 02:00 Piperacillin Sod/ Tazobactam Sod 100 ml @ 25 mls/hr Q8H IV 09/13/24 10:00 09/16/24 18:43 25 MLS/HR Acetaminophen 1,000 mg Q8H PRN IV 09/13/24 10:45 09/15/24 11:59 1,000 MG Dextrose/Sodium Chloride 1,000 ml @ 30 mls/hr Q24H IV 09/14/24 12:30 09/15/24 18:20 30 MLS/HR Vancomycin HCl 250 ml @ 250 mls/hr Q8H IV 09/16/24 17:00 09/16/24 17:20 250 MLS/HR Sucralfate 1 gm BID PO 09/16/24 22:00 09/16/24 21:19 1 GM Pantoprazole Sodium 40 mg BID@0600,1700 PO 09/16/24 17:00 09/16/24 17:20 40 MG objective Gen.: Patient lying in bed in no apparent distress. On supplemental oxygen. Head: Normocephalic, atraumatic. Eyes: EOMI/PERRLA. Ears: Normal hearing. Normal anatomy. Neck/trachea: Trachea midline, supple. Nose: Normal external anatomy. Mouth: Moist mucous membranes. Chest: Decreased air entry bilaterally. No wheezing or rhonchi. Cardiovascular: Positive S1, positive S2. Regular rate and rhythm. Abdomen: Positive bowel sounds in all 4 quadrants. Soft, non-tender, non- distended. : Deferred. Rectal: Deferred. Skin: Warm, dry. Intact. Extremities: 2+ radial pulses bilaterally. No lower extremity edema. Neuro: Awake, alert, oriented x3. No gross motor or sensory deficits. Cranial nerves II through XII intact. Gait not assessed. laboratory and microbiology Laboratory Tests 09/16/24 03:21 Test 09/16/24 03:21 Range/Units Serum Glucose 119 H 74-106 mg/dL Assessment/Plan Impression: Acute hypoxic respiratory failure GI hemorrhage Hematemesis d/t gastric ulcer Obesity BMI 31.9 Events: Remains on supplemental oxygen 2 LPM via NC Taper O2 as tolerated Monitor hemoglobin - currently 7.3 g/dL Continue Protonix drip GI recs appreciated Continue antibiotics. F/u cultures. Monitor renal function Monitor electrolytes. Supplement as necessary. K of 2.7 - potassium supplementation Mag of 1.7 - supplement Clinimix for nutritional support Patient is stable from the pulmonary standpoint for downgrade. Labs and imaging reviewed. Rest of plan as noted below. Plan: s/p extubation on 09/15/24 Supplemental oxygen Titrate to keep O2 saturation above 90%. Bloody stools - monitor hemoglobin GI recs appreciated Continue antibiotics. F/u cultures. Pressors as necessary to maintain a mean arterial blood pressure greater than 65 mmHg. Monitor renal function Monitor electrolytes. Supplement as necessary. Monitor ins and outs. GI prophylaxis. DVT prophylaxis. Prognosis: Poor given patient's multiple co-morbidities. Condition: Critical Rest of plan per hospitalist and other consultants. A total of 35 minutes of critical care time was spent reviewing the patient record, examining the patient, making a diagnostic and therapeutic plan, discussing this plan with the medical personnel, following up on diagnostic studies and following the patient for clinical stability excluding any and all procedures. At least 50% of this time was spent in direct, [id number] contact. Thank you, DACIA Villegas, for allowing me to participate in this patient's care. Further recommendations will depend on the patient's clinical course. Please do not hesitate to contact me if you have any questions or concerns. This medical document was created using an electronic medical record system with [employer] dictation system. Although these documentations are being carefully reviewed, there may still be some phonetic and typographical changes. The errors are purely typographical, due to imperfection on the software program, and do not reflect any compromise in the patient's medical care. Dietary Evaluation Review Comments: 1) Advance to 60g CCHO diet when medically feasible, pending DRY COLOR TESTER approval 2) Follow-up with see wheeler 3) Refer to outpatient RD/CDCES for weight management 4) Continue to monitor appetite, labs, and skin integrity Expected Outcomes/Goals: 1) appetite and labs to improve 2) diet to advance 3) f/u in 5 days Plan discussed with: Other (PAPI Penaloza) Critical Care Time(min): 35 CC Plasma Assessment Blood Product Administration S: [id number] KARTIK HUANG MD Sep 16, 2024 22:44
[2024-09-17] VITALS (8 sets, daily range): BP systolic 109–139; BP diastolic 56–92; PULSE 70–83; RESP 0–20; TEMP 98.1–99.4; O2SAT 91–99
--- NOTE | 2024-09-17 14:07 | DVHPN2 ---
Progress Note - Dictate Date Seen: Sep 17, 2024 Medical Necessity Reason Pt with a Central, PICC or Fol: No vital signs Vital Sign Date Time Temp Pulse Resp B/P (MAP) Pulse Ox O2 Delivery O2 Flow Rate FiO2 09/17/24 13:00 98.6 73 18 110/60 (77) 99 98.6 09/17/24 08:00 Nasal Cannula* 2 28 Total Intake and Output 09/16/24 09/16/24 09/17/24 15:00 23:00 07:00 Intake Total 1148 ml 762 ml 1050 ml Output Total 2000 ml 1750 ml Balance 1148 ml -1238 ml -700 ml medications Current Medications Medications Dose Ordered Sig/Leann Route Start Time Stop Time Status Last Admin Dose Admin Nitroglycerin 0.4 mg Q5MINP PRN SL 09/12/24 14:45 Morphine Sulfate 2 mg Q30M PRN IV 09/12/24 14:45 Ondansetron HCl 4 mg Q4HPRN PRN IV 09/12/24 16:45 Hydralazine HCl 10 mg Q6HP PRN IV 09/12/24 16:45 Diphenhydramine HCl 25 mg Q4HP PRN IV 09/12/24 16:45 Piperacillin Sod/ Tazobactam Sod 100 ml @ 25 mls/hr Q8H IV 09/13/24 10:00 09/17/24 10:10 25 MLS/HR Acetaminophen 1,000 mg Q8H PRN IV 09/13/24 10:45 09/15/24 11:59 1,000 MG Dextrose/Sodium Chloride 1,000 ml @ 30 mls/hr Q24H IV 09/14/24 12:30 09/15/24 18:20 30 MLS/HR Sucralfate 1 gm BID PO 09/16/24 22:00 09/17/24 10:09 1 GM Pantoprazole Sodium 40 mg BID@0600,1700 PO 09/16/24 17:00 09/17/24 05:20 40 MG objective General Appearance: alert, no distress HEENT: EOMI, PERRLA, normal external inspect of ears, no icterus, no nasal drainage Neck: no carotid bruit, no jugular venous distention (JVD), no lymphadenopathy Chest: normal thorax Respiratory: clear to auscultation, normal air movement Cardiovascular: regular rate and rhythm, no diastolic murmur, no jugular venous distention (JVD), no rub, no systolic murmur Abdominal: soft, no hepatomegaly, no mass, no splenomegaly, no tenderness Genitourinary: grossly normal external Musculoskeletal: no joint tenderness, no swelling Extremities: normal pulses, no calf tenderness, no clubbing, no cyanosis, no edema Skin: no bruising, no jaundice, no rash Neurological: alert, No focal deficit laboratory and microbiology Laboratory Tests 09/16/24 03:21 Test 09/16/24 03:21 Range/Units Serum Glucose 119 H 74-106 mg/dL Problem List 1. Hematemesis Medication, monitoring 2. GI Bleed GI Consult, Surgical Consult 3. Hypovolemic Shock Medication, monitoring 4. DM II hyperglycemia Insulin SS 5. Obesity Diet Education, monitoring Assessment/Plan Subjective: Patient is awake and alert. Objective: Patient was successfully extubated on 09/15/2024. Patient was started on a diet. She was recently downgraded out of ICU. Patient was admitted for acute GI bleed. Patient has had two endoscopic procedures. Patient had hypovolemic shock. Now recovering. Plan: Repeat CBC is pending. Continue PPI and monitor oral intake and discharge planning. Dietary Evaluation Review Comments: 1) Advance to 60g CCHO diet when medically feasible, pending ESTIMATOR BINDING approval 2) Follow-up with enterprise security architect 3) Refer to outpatient RD/CDCES for weight management 4) Continue to monitor appetite, labs, and skin integrity Expected Outcomes/Goals: 1) appetite and labs to improve 2) diet to advance 3) f/u in 5 days Plan discussed with: Patient, Other CC Plasma Assessment Blood Product Administration S: [id number] MICK ANTONIO NP Sep 17, 2024 14:07
[2024-09-17 15:51] LABS: Basophils # (auto) 0.1 10 ^3/uL (0-0.2); Basophils % (auto) 0.8 % (0.0-2.0); Eosinophils # (auto) 0.3 10 ^3/uL (0-0.8); Eosinophils % (auto) 4.9 % (0.0-7.0); Hematocrit 28.3 % (36.0-46.0); Hemoglobin 9.4 g/dL (12.2-16.2); Lymphocytes # (auto) 1.9 10 ^3/uL (0.4-5.4); Lymphocytes % (auto) 27.2 % (10.0-50.0); Mean Corpuscular Hemoglobin 30.2 pg (28.0-32.0); Mean Corpuscular Hgb Conc. 33.2 g/dL (32.0-36.0); Mean Corpuscular Volume 90.9 fL (80.0-100.0); Monocytes # (auto) 0.5 10 ^3/uL (0-1.3); Monocytes % (auto) 7.5 % (0.0-12.0); Neutrophils # (auto) 4.1 10 ^3/uL (1.6-8.6); Neutrophils % (auto) 59.6 % (37.0-80.0); Nucleated Red Blood Cells % 0.1 %; Platelet Count (auto) 239 10^3/uL (140-450); Red Blood Cells 3.12 10^6/uL (4.0-5.20); Red Cell Distribution Width 15.8 % (11.8-14.3)
--- NOTE | 2024-09-17 22:58 | DVHPN2 ---
Progress Note - Dictate Date Seen: Sep 17, 2024 Medical Necessity Reason Pt with a Central, PICC or Fol: No Subjective Patient seen and examined at bedside. Currently on room air Overnight events reviewed. vital signs Vital Sign Date Time Temp Pulse Resp B/P (MAP) Pulse Ox O2 Delivery O2 Flow Rate FiO2 09/17/24 21:00 98.4 73 17 109/60 (76) 94 98.4 09/17/24 08:00 Nasal Cannula* 2 28 Total Intake and Output 09/16/24 09/16/24 09/17/24 15:00 23:00 07:00 Intake Total 1148 ml 762 ml 1050 ml Output Total 2000 ml 1750 ml Balance 1148 ml -1238 ml -700 ml medications Current Medications Medications Dose Ordered Sig/Leann Route Start Time Stop Time Status Last Admin Dose Admin Nitroglycerin 0.4 mg Q5MINP PRN SL 09/12/24 14:45 Morphine Sulfate 2 mg Q30M PRN IV 09/12/24 14:45 Ondansetron HCl 4 mg Q4HPRN PRN IV 09/12/24 16:45 Hydralazine HCl 10 mg Q6HP PRN IV 09/12/24 16:45 Diphenhydramine HCl 25 mg Q4HP PRN IV 09/12/24 16:45 Piperacillin Sod/ Tazobactam Sod 100 ml @ 25 mls/hr Q8H IV 09/13/24 10:00 09/17/24 17:30 25 MLS/HR Acetaminophen 1,000 mg Q8H PRN IV 09/13/24 10:45 09/15/24 11:59 1,000 MG Dextrose/Sodium Chloride 1,000 ml @ 30 mls/hr Q24H IV 09/14/24 12:30 09/17/24 15:39 30 MLS/HR Sucralfate 1 gm BID PO 09/16/24 22:00 09/17/24 21:00 1 GM Pantoprazole Sodium 40 mg BID@0600,1700 PO 09/16/24 17:00 09/17/24 17:30 40 MG objective Gen.: Patient lying in bed in no apparent distress. On room air. Head: Normocephalic, atraumatic. Eyes: EOMI/PERRLA. Ears: Normal hearing. Normal anatomy. Neck/trachea: Trachea midline, supple. Nose: Normal external anatomy. Mouth: Moist mucous membranes. Chest: Decreased air entry bilaterally. No wheezing or rhonchi. Cardiovascular: Positive S1, positive S2. Regular rate and rhythm. Abdomen: Positive bowel sounds in all 4 quadrants. Soft, non-tender, non- distended. : Deferred. Rectal: Deferred. Skin: Warm, dry. Intact. Extremities: 2+ radial pulses bilaterally. No lower extremity edema. Neuro: Awake, alert, oriented x3. No gross motor or sensory deficits. Cranial nerves II through XII intact. Gait not assessed. laboratory and microbiology Laboratory Tests 09/17/24 15:20 09/16/24 03:21 Test 09/16/24 03:21 Range/Units Serum Glucose 119 H 74-106 mg/dL Assessment/Plan Impression: Acute hypoxic respiratory failure GI hemorrhage Hematemesis d/t gastric ulcer Obesity BMI 31.9 Events: Currently on room air Supplemental oxygen PRN Improved O2 requirements Hemoglobin stable - currently 9.4 g/dL Protonix PO BID GI recs appreciated Continue antibiotics. Blood cultures, no growth after 72 hours Monitor renal function Monitor electrolytes. Supplement as necessary. Clinimix for nutritional support Patient is stable from the pulmonary standpoint for downgrade. Disposition per hospitalist Labs and imaging reviewed. Rest of plan as noted below. Plan: s/p extubation on 09/15/24 Supplemental oxygen Titrate to keep O2 saturation above 92%. Bloody stools - monitor hemoglobin GI recs appreciated Continue antibiotics. F/u cultures. Pressors as necessary to maintain a mean arterial blood pressure greater than 65 mmHg. Monitor renal function Monitor electrolytes. Supplement as necessary. Monitor ins and outs. GI prophylaxis. DVT prophylaxis. Prognosis: Poor given patient's multiple co-morbidities. Rest of plan per hospitalist and other consultants. Thank you, DACIA Villegas, for allowing me to participate in this patient's care. Further recommendations will depend on the patient's clinical course. Please do not hesitate to contact me if you have any questions or concerns. This medical document was created using an electronic medical record system with [employer] system. Although these documentations are being carefully reviewed, there may still be some phonetic and typographical changes. The errors are purely typographical, due to imperfection on the software program, and do not reflect any compromise in the patient's medical care. Dietary Evaluation Review Comments: 1) Advance to 60g CCHO diet when medically feasible, pending SHODDY MILL WORKER approval 2) Follow-up with placement coordinator 3) Refer to outpatient RD/CDCES for weight management 4) Continue to monitor appetite, labs, and skin integrity Expected Outcomes/Goals: 1) appetite and labs to improve 2) diet to advance 3) f/u in 5 days Plan discussed with: Patient, Other (RN Summer) CC Plasma Assessment Blood Product Administration S: [id number] KARTIK HUANG MD Sep 17, 2024 22:58
[2024-09-18] VITALS (8 sets, daily range): BP systolic 109–128; BP diastolic 59–78; PULSE 63–80; RESP 16–18; TEMP 97.9–99; O2SAT 94–100
[2024-09-18 09:14] LABS: Basophils # (auto) 0.1 10 ^3/uL (0-0.2); Basophils % (auto) 0.9 % (0.0-2.0); Eosinophils # (auto) 0.4 10 ^3/uL (0-0.8); Eosinophils % (auto) 6.2 % (0.0-7.0); Hematocrit 25.9 % (36.0-46.0); Hemoglobin 8.6 g/dL (12.2-16.2); Lymphocytes # (auto) 1.8 10 ^3/uL (0.4-5.4); Lymphocytes % (auto) 26.7 % (10.0-50.0); Mean Corpuscular Hgb Conc. 33.1 g/dL (32.0-36.0); Mean Corpuscular Volume 90.5 fL (80.0-100.0); Monocytes # (auto) 0.4 10 ^3/uL (0-1.3); Monocytes % (auto) 6.3 % (0.0-12.0); Neutrophils # (auto) 4.1 10 ^3/uL (1.6-8.6); Neutrophils % (auto) 59.9 % (37.0-80.0); Platelet Count (auto) 281 10^3/uL (140-450); Red Blood Cells 2.86 10^6/uL (4.0-5.20); Red Cell Distribution Width 15.8 % (11.8-14.3); White Blood Cell 6.8 10^3/uL (4.4-10.8)
[2024-09-18 09:21] LABS: Sodium 143 mmol/L (136-145)
[2024-09-18 09:22] LABS: Anion Gap 9 (5-15); Calcium 9.6 mg/dL (8.7-10.4); Carbon Dioxide 26 mmol/L (20-31)
[2024-09-18 09:32] LABS: BUN/Creatinine Ratio 8.1 (10.0-20.0); Blood Urea Nitrogen < 5 mg/dL (9-23); Chloride 108 mmol/L (98-107); Glucose 146 mg/dL (74-106); Potassium 2.7 mmol/L (3.5-5.1)
[2024-09-18] MEDS: ACETAMINOPHEN 325 MG TAB PO PRN (12:45)
[2024-09-18] MEDS: POTASSIUM CHL 20 Meq TABLET PO ONE (12:52)
[2024-09-18] MEDS: POTASSIUM CHLORIDE 40 MEQ, LIDOCAINE 1% (LOCAL ANESTH.) 4 ML in SODIUM CHL 0.9% 250 ML IV ONE (14:17)
--- NOTE | 2024-09-18 16:00 | DVHPN2 ---
Progress Note - Dictate Date Seen: Sep 18, 2024 Medical Necessity Reason Pt with a Central, PICC or Fol: No vital signs Vital Sign Date Time Temp Pulse Resp B/P (MAP) Pulse Ox O2 Delivery O2 Flow Rate FiO2 09/18/24 13:00 99.0 79 16 109/70 (83) 100 99.0 09/17/24 20:00 Room Air* 0 21 Total Intake and Output 09/17/24 09/17/24 09/18/24 15:00 23:00 07:00 Intake Total 100 ml 975 ml 275 ml Output Total 1550 ml 1200 ml Balance 100 ml -575 ml -925 ml medications Current Medications Medications Dose Ordered Sig/Leann Route Start Time Stop Time Status Last Admin Dose Admin Nitroglycerin 0.4 mg Q5MINP PRN SL 09/12/24 14:45 Morphine Sulfate 2 mg Q30M PRN IV 09/12/24 14:45 Ondansetron HCl 4 mg Q4HPRN PRN IV 09/12/24 16:45 Hydralazine HCl 10 mg Q6HP PRN IV 09/12/24 16:45 Diphenhydramine HCl 25 mg Q4HP PRN IV 09/12/24 16:45 Piperacillin Sod/ Tazobactam Sod 100 ml @ 25 mls/hr Q8H IV 09/13/24 10:00 09/18/24 11:02 25 MLS/HR Dextrose/Sodium Chloride 1,000 ml @ 30 mls/hr Q24H IV 09/14/24 12:30 09/18/24 15:12 30 MLS/HR Sucralfate 1 gm BID PO 09/16/24 22:00 09/18/24 11:02 1 GM Pantoprazole Sodium 40 mg BID@0600,1700 PO 09/16/24 17:00 09/18/24 05:08 40 MG Acetaminophen 650 mg Q4HP PRN PO 09/18/24 14:00 objective General Appearance: alert, no distress HEENT: EOMI, PERRLA, normal external inspect of ears, no icterus, no nasal drainage Neck: no carotid bruit, no jugular venous distention (JVD), no lymphadenopathy Chest: normal thorax Respiratory: clear to auscultation, normal air movement Cardiovascular: regular rate and rhythm, no diastolic murmur, no jugular venous distention (JVD), no rub, no systolic murmur Abdominal: soft, no hepatomegaly, no mass, no splenomegaly, no tenderness Genitourinary: grossly normal external Musculoskeletal: no joint tenderness, no swelling Extremities: normal pulses, no calf tenderness, no clubbing, no cyanosis, no edema Skin: no bruising, no jaundice, no rash Neurological: alert, No focal deficit laboratory and microbiology Laboratory Tests 09/18/24 08:48 Test 09/18/24 08:48 Range/Units Serum Glucose 146 H 74-106 mg/dL Problem List 1. Hematemesis Medication, monitoring 2. GI Bleed GI Consult, Surgical Consult 3. Hypovolemic Shock Medication, monitoring 4. DM II hyperglycemia Insulin SS 5. Obesity Diet Education, monitoring Assessment/Plan Subjective Patient is awake and alert. Objective Patient's hemoglobin appears to be stable. I did update patient's daughter and patient on plan of care. Patient is very weak and is physically not at her baseline. Plan PT eval. hotel services sales representative consult for home health and PT for outpatient. DC planning for tomorrow. No further signs of active bleeding. Hemoglobin is currently stable. Continue PPI. Dietary Evaluation Review Comments: 1) Advance to 60g CCHO diet when medically feasible, pending AUXILIARY PLANT OPERATOR approval 2) Follow-up with access analyst 3) Refer to outpatient RD/CDCES for weight management 4) Continue to monitor appetite, labs, and skin integrity Expected Outcomes/Goals: 1) appetite and labs to improve 2) diet to advance 3) f/u in 5 days Plan discussed with: Patient, Other CC Plasma Assessment Blood Product Administration S: [id number] MICK ANTONIO NP Sep 18, 2024 16:00
[2024-09-18] MEDS: Glucerna Carbsteady SHAKE Chocolate 8oz PO SCH (18:27)
--- NOTE | 2024-09-18 22:46 | DVHPN2 ---
Progress Note - Dictate Date Seen: Sep 18, 2024 Medical Necessity Reason Pt with a Central, PICC or Fol: Yes The following are medically ne: Huizar Catheter Reason for huizar catheter: Strict I&O Subjective Patient seen and examined at bedside. Breathing comfortably on room air Overnight events reviewed. vital signs Vital Sign Date Time Temp Pulse Resp B/P (MAP) Pulse Ox O2 Delivery O2 Flow Rate FiO2 09/18/24 21:00 98.1 78 17 128/67 (87) 100 98.1 09/18/24 20:00 Room Air* 0 21 Total Intake and Output 09/17/24 09/17/24 09/18/24 15:00 23:00 07:00 Intake Total 100 ml 975 ml 275 ml Output Total 1550 ml 1200 ml Balance 100 ml -575 ml -925 ml medications Current Medications Medications Dose Ordered Sig/Leann Route Start Time Stop Time Status Last Admin Dose Admin Nitroglycerin 0.4 mg Q5MINP PRN SL 09/12/24 14:45 Morphine Sulfate 2 mg Q30M PRN IV 09/12/24 14:45 Ondansetron HCl 4 mg Q4HPRN PRN IV 09/12/24 16:45 Hydralazine HCl 10 mg Q6HP PRN IV 09/12/24 16:45 Diphenhydramine HCl 25 mg Q4HP PRN IV 09/12/24 16:45 Piperacillin Sod/ Tazobactam Sod 100 ml @ 25 mls/hr Q8H IV 09/13/24 10:00 09/18/24 17:21 25 MLS/HR Dextrose/Sodium Chloride 1,000 ml @ 30 mls/hr Q24H IV 09/14/24 12:30 09/18/24 15:12 30 MLS/HR Sucralfate 1 gm BID PO 09/16/24 22:00 09/18/24 21:22 1 GM Pantoprazole Sodium 40 mg BID@0600,1700 PO 09/16/24 17:00 09/18/24 17:21 40 MG Acetaminophen 650 mg Q4HP PRN PO 09/18/24 14:00 Enteral Nutritional Formula 240 ml BIDWM PO 09/18/24 18:00 09/18/24 18:27 240 ML objective Gen.: Patient lying in bed in no apparent distress. On room air. Head: Normocephalic, atraumatic. Eyes: EOMI/PERRLA. Ears: Normal hearing. Normal anatomy. Neck/trachea: Trachea midline, supple. Nose: Normal external anatomy. Mouth: Moist mucous membranes. Chest: Decreased air entry bilaterally. No wheezing or rhonchi. Cardiovascular: Positive S1, positive S2. Regular rate and rhythm. Abdomen: Positive bowel sounds in all 4 quadrants. Soft, non-tender, non- distended. : Deferred. Rectal: Deferred. Skin: Warm, dry. Intact. Extremities: 2+ radial pulses bilaterally. No lower extremity edema. Neuro: Awake, alert, oriented x3. No gross motor or sensory deficits. Cranial nerves II through XII intact. Gait not assessed. laboratory and microbiology Laboratory Tests 09/18/24 08:48 Test 09/18/24 08:48 Range/Units Serum Glucose 146 H 74-106 mg/dL Assessment/Plan Impression: Acute hypoxic respiratory failure GI hemorrhage Hematemesis d/t gastric ulcer Obesity BMI 31.9 Events: Remains on room air Supplemental oxygen PRN Improved O2 requirements Complete antibiotics. Monitor hemoglobin - 8.6 g/dl Protonix PO BID Continue sucralfate GI recs appreciated Monitor renal function Monitor electrolytes. Supplement as necessary. Hypokalemia of 2.7 - Potassium supplementation Follow magnesium Clinimix for nutritional support PT eval. Patient is stable from the pulmonary standpoint for discharge. Disposition per hospitalist Labs and imaging reviewed. Rest of plan as noted below. Plan: s/p extubation on 09/15/24 Supplemental oxygen PRN Titrate to keep O2 saturation above 92%. Monitor hemoglobin GI recs appreciated Continue antibiotics. F/u cultures. Blood cultures, no growth after 72 hours Pressors as necessary to maintain a mean arterial blood pressure greater than 65 mmHg. Monitor renal function Monitor electrolytes. Supplement as necessary. Monitor ins and outs. GI prophylaxis. DVT prophylaxis. Prognosis: Poor given patient's multiple co-morbidities. Rest of plan per hospitalist and other consultants. Thank you, DACIA Villegas, for allowing me to participate in this patient's care. Further recommendations will depend on the patient's clinical course. Please do not hesitate to contact me if you have any questions or concerns. This medical document was created using an electronic medical record system with [employer] system. Although these documentations are being carefully reviewed, there may still be some phonetic and typographical changes. The errors are purely typographical, due to imperfection on the software program, and do not reflect any compromise in the patient's medical care. Dietary Evaluation Review Comments: 1) Advance to 60g CCHO diet when medically feasible, pending SYRUP MAKER approval 2) Follow-up with truck driver's offsider 3) Refer to outpatient RD/[facility] for weight management 4) Continue to monitor appetite, labs, and skin integrity Expected Outcomes/Goals: 1) appetite and labs to improve 2) diet to advance 3) f/u in 5 days Plan discussed with: Patient, Other (RN Phyllis) CC Plasma Assessment Blood Product Administration S: [id number] KARTIK HUANG MD Sep 18, 2024 22:46
[2024-09-19] VITALS (8 sets, daily range): BP systolic 110–140; BP diastolic 65–86; PULSE 16–91; RESP 16–100; TEMP 97.9–98.5; O2SAT 94–100
[2024-09-19] MEDS: ACETAMINOPHEN 325 MG TAB PO PRN (06:16)
[2024-09-19 08:47] LABS: Basophils # (auto) 0 10 ^3/uL (0-0.2); Basophils % (auto) 0.7 % (0.0-2.0); Eosinophils # (auto) 0.5 10 ^3/uL (0-0.8); Eosinophils % (auto) 7.9 % (0.0-7.0); Hematocrit 28.1 % (36.0-46.0); Hemoglobin 9.4 g/dL (12.2-16.2); Lymphocytes # (auto) 1.8 10 ^3/uL (0.4-5.4); Lymphocytes % (auto) 29.8 % (10.0-50.0); Mean Corpuscular Hemoglobin 30.3 pg (28.0-32.0); Mean Corpuscular Hgb Conc. 33.6 g/dL (32.0-36.0); Mean Corpuscular Volume 90.2 fL (80.0-100.0); Monocytes # (auto) 0.4 10 ^3/uL (0-1.3); Monocytes % (auto) 6.1 % (0.0-12.0); Neutrophils # (auto) 3.4 10 ^3/uL (1.6-8.6); Neutrophils % (auto) 55.5 % (37.0-80.0); Nucleated Red Blood Cells % 0.1 %; Platelet Count (auto) 317 10^3/uL (140-450); Red Blood Cells 3.12 10^6/uL (4.0-5.20); Red Cell Distribution Width 15.8 % (11.8-14.3); White Blood Cell 6.2 10^3/uL (4.4-10.8)
[2024-09-19 09:00] LABS: Chloride 108 mmol/L (98-107); Sodium 144 mmol/L (136-145)
[2024-09-19 09:01] LABS: Anion Gap 10 (5-15); Calcium 9.4 mg/dL (8.7-10.4); Carbon Dioxide 26 mmol/L (20-31)
[2024-09-19 09:06] LABS: BUN/Creatinine Ratio 11.5 (10.0-20.0)
[2024-09-19 09:08] LABS: Blood Urea Nitrogen 7 mg/dL (9-23); Glucose 132 mg/dL (74-106)
[2024-09-19] MEDS: POTASSIUM EFFERVESENT TAB 25 MEQ PO ONE (13:46)
[2024-09-19] MEDS: POTASSIUM CHL 20MEQ/100ML 100 ML IV ONE (13:52)
--- NOTE | 2024-09-19 20:36 | DVHPN2 ---
Progress Note Date Seen: Sep 19, 2024 Medical Necessity Reason Pt with a Central, PICC or Fol: Yes The following are medically ne: Huizar Catheter Reason for huizar catheter: Strict I&O Subjective Review of Systems: CVS:Normal, RESPIRATORY:Normal, GI:Normal, NEURO:Normal Objective vital signs Vital Sign Date Time Temp Pulse Resp B/P (MAP) Pulse Ox O2 Delivery O2 Flow Rate FiO2 09/19/24 16:46 98.2 80 18 140/86 (104) 99 98.2 09/19/24 08:00 Room Air* 0 21 Total Intake and Output 09/18/24 09/18/24 09/19/24 15:00 23:00 07:00 Intake Total 1000 ml 1570 ml Output Total 1350 ml 2500 ml Balance -350 ml -930 ml medications Current Medications Medications Dose Ordered Sig/Leann Route Start Time Stop Time Status Last Admin Dose Admin Nitroglycerin 0.4 mg Q5MINP PRN SL 09/12/24 14:45 Morphine Sulfate 2 mg Q30M PRN IV 09/12/24 14:45 Ondansetron HCl 4 mg Q4HPRN PRN IV 09/12/24 16:45 Hydralazine HCl 10 mg Q6HP PRN IV 09/12/24 16:45 Diphenhydramine HCl 25 mg Q4HP PRN IV 09/12/24 16:45 Piperacillin Sod/ Tazobactam Sod 100 ml @ 25 mls/hr Q8H IV 09/13/24 10:00 09/19/24 17:43 25 MLS/HR Dextrose/Sodium Chloride 1,000 ml @ 30 mls/hr Q24H IV 09/14/24 12:30 09/18/24 15:12 30 MLS/HR Sucralfate 1 gm BID PO 09/16/24 22:00 09/19/24 10:31 1 GM Pantoprazole Sodium 40 mg BID@0600,1700 PO 09/16/24 17:00 09/19/24 17:37 40 MG Acetaminophen 650 mg Q4HP PRN PO 09/18/24 14:00 09/19/24 06:16 650 MG Enteral Nutritional Formula 240 ml BIDWM PO 09/18/24 18:00 09/19/24 17:43 240 ML Examination: GENERAL:Normal, LUNGS:Normal, CVS:Normal, ABDOMEN:Normal, SKIN:Normal, NEURO:Normal laboratory and microbiology Laboratory Tests 09/19/24 08:25 Test 09/19/24 08:25 Range/Units Serum Glucose 132 H 74-106 mg/dL Microbiology Date/Time Source Procedure Growth Status 09/13/24 03:15 Blood Blood Culture - Final NO GROWTH AFTER 5 DAYS OF INCUBATION. Complete 09/12/24 21:19 Nose MRSA Screen - Final Complete 09/12/24 20:39 Sputum Gram Stain - Final Complete 09/12/24 20:39 Respiratory Culture - Final Klebsiella pneumoniae Escherichia coli Complete Labs and/or images reviewed: Labs reviewed by me, Image(s) reviewed by me Problem List/Assessment/Plan Problem List/Assessment/Plan 1. Hematemesis Medication, monitoring 2. GI Bleed GI Consult, Surgical Consult 3. Hypovolemic Shock Medication, monitoring 4. DM II hyperglycemia Insulin SS 5. Obesity Diet Education, monitoring Assessment/Plan Subjective Patient is awake and alert. Objective Patient's hemoglobin appears to be stable. I did update patient's daughter and patient on plan of care. Patient is very weak and is physically not at her baseline. Physical therapy through home health was ordered, patient was able to walk around nurses station today. Plan PT eval. rn medical inpatient services consult for home health and PT for outpatient. DC planning for tomorrow. No further signs of active bleeding. Hemoglobin is currently stable. Continue PPI. Plan discussed with: Patient My Orders My Orders Orders - RENEE DAILEY Procedure Category Date Status Time D/C Shanon GONCALVES 09/19/24 In Process 11:07 Complete Blood Count LAB 09/19/24 Logged 05:00 Basic Metabolic Panel LAB 09/19/24 Logged 05:00 Dietary Evaluation Review Comments: 1) Advance to 60g CCHO diet when medically feasible, pending INTERNET SALES CONSULTANT approval 2) Follow-up with coal hauler operator 3) Refer to outpatient RD/[facility] for weight management 4) Continue to monitor appetite, labs, and skin integrity Expected Outcomes/Goals: 1) appetite and labs to improve 2) diet to advance 3) f/u in 5 days Date of Service: Sep 19, 2024 Billing Provider: ANIL MORGAN MD Common Visit Codes: [id number] INP/OBS CARE (MOD) CC Plasma Assessment Blood Product Administration S: [id number] RENEE DAILEY Sep 19, 2024 20:35
--- NOTE | 2024-09-19 23:15 | DVHPN2 ---
Progress Note - Dictate Date Seen: Sep 19, 2024 Medical Necessity Reason Pt with a Central, PICC or Fol: No Subjective Patient seen and examined at bedside. Breathing comfortably on room air Overnight events reviewed. vital signs Vital Sign Date Time Temp Pulse Resp B/P (MAP) Pulse Ox O2 Delivery O2 Flow Rate FiO2 09/19/24 21:00 98.2 83 20 114/66 (82) 100 98.2 09/19/24 20:00 Room Air* 0 21 Total Intake and Output 09/18/24 09/18/24 09/19/24 15:00 23:00 07:00 Intake Total 1000 ml 1570 ml Output Total 1350 ml 2500 ml Balance -350 ml -930 ml medications Current Medications Medications Dose Ordered Sig/Leann Route Start Time Stop Time Status Last Admin Dose Admin Nitroglycerin 0.4 mg Q5MINP PRN SL 09/12/24 14:45 Morphine Sulfate 2 mg Q30M PRN IV 09/12/24 14:45 Ondansetron HCl 4 mg Q4HPRN PRN IV 09/12/24 16:45 Hydralazine HCl 10 mg Q6HP PRN IV 09/12/24 16:45 Diphenhydramine HCl 25 mg Q4HP PRN IV 09/12/24 16:45 Piperacillin Sod/ Tazobactam Sod 100 ml @ 25 mls/hr Q8H IV 09/13/24 10:00 09/19/24 17:43 25 MLS/HR Sucralfate 1 gm BID PO 09/16/24 22:00 09/19/24 21:14 1 GM Pantoprazole Sodium 40 mg BID@0600,1700 PO 09/16/24 17:00 09/19/24 17:37 40 MG Acetaminophen 650 mg Q4HP PRN PO 09/18/24 14:00 09/19/24 06:16 650 MG Enteral Nutritional Formula 240 ml BIDWM PO 09/18/24 18:00 09/19/24 17:43 240 ML objective Gen.: Patient lying in bed in no apparent distress. On room air. Head: Normocephalic, atraumatic. Eyes: EOMI/PERRLA. Ears: Normal hearing. Normal anatomy. Neck/trachea: Trachea midline, supple. Nose: Normal external anatomy. Mouth: Moist mucous membranes. Chest: Decreased air entry bilaterally. No wheezing or rhonchi. Cardiovascular: Positive S1, positive S2. Regular rate and rhythm. Abdomen: Positive bowel sounds in all 4 quadrants. Soft, non-tender, non- distended. : Deferred. Rectal: Deferred. Skin: Warm, dry. Intact. Extremities: 2+ radial pulses bilaterally. No lower extremity edema. Neuro: Awake, alert, oriented x3. No gross motor or sensory deficits. Cranial nerves II through XII intact. Gait not assessed. laboratory and microbiology Laboratory Tests 09/19/24 08:25 Test 09/19/24 08:25 Range/Units Serum Glucose 132 H 74-106 mg/dL Assessment/Plan Impression: Acute hypoxic respiratory failure GI hemorrhage Hematemesis d/t gastric ulcer Obesity BMI 31.9 Events: Remains on room air Supplemental oxygen PRN Improved O2 requirements Discontinue Claudio Complete antibiotics. Monitor hemoglobin - 9.4 g/dl Protonix PO BID Continue sucralfate GI recs appreciated Monitor renal function Monitor electrolytes. Supplement as necessary. Hypokalemia of 2.7 - Potassium supplementation Clinimix for nutritional support PT eval. Patient is stable from the pulmonary standpoint for discharge. Disposition per hospitalist Labs and imaging reviewed. Rest of plan as noted below. Plan: s/p extubation on 09/15/24 Supplemental oxygen PRN Titrate to keep O2 saturation above 92%. Monitor hemoglobin GI recs appreciated Continue antibiotics. F/u cultures. Blood cultures, no growth after 72 hours Pressors as necessary to maintain a mean arterial blood pressure greater than 65 mmHg. Monitor renal function Monitor electrolytes. Supplement as necessary. Monitor ins and outs. GI prophylaxis. DVT prophylaxis. Prognosis: Guarded given patient's multiple co-morbidities. Rest of plan per hospitalist and other consultants. Thank you, DACIA Villegas, for allowing me to participate in this patient's care. Further recommendations will depend on the patient's clinical course. Please do not hesitate to contact me if you have any questions or concerns. This medical document was created using an electronic medical record system with [employer] system. Although these documentations are being carefully reviewed, there may still be some phonetic and typographical changes. The errors are purely typographical, due to imperfection on the software program, and do not reflect any compromise in the patient's medical care. Dietary Evaluation Review Comments: 1) Advance to 60g CCHO diet when medically feasible, pending PHARMACOEPIDEMIOLOGIST approval 2) Follow-up with assembler hydraulic backhoe 3) Refer to outpatient RD/[facility] for weight management 4) Continue to monitor appetite, labs, and skin integrity Expected Outcomes/Goals: 1) appetite and labs to improve 2) diet to advance 3) f/u in 5 days Plan discussed with: Patient, Other (RN Phyllis) CC Plasma Assessment Blood Product Administration S: [id number] KARTIK HUANG MD Sep 19, 2024 23:15
[2024-09-20] VITALS (8 sets, daily range): BP systolic 103–124; BP diastolic 55–77; PULSE 71–86; RESP 16–20; TEMP 97.1–99.1; O2SAT 93–97
[2024-09-20 11:22] LABS: Basophils # (auto) 0.1 10 ^3/uL (0-0.2); Eosinophils # (auto) 0.5 10 ^3/uL (0-0.8); Eosinophils % (auto) 6.7 % (0.0-7.0); Hematocrit 26.9 % (36.0-46.0); Hemoglobin 9.3 g/dL (12.2-16.2); Lymphocytes # (auto) 2.3 10 ^3/uL (0.4-5.4); Lymphocytes % (auto) 32.8 % (10.0-50.0); Mean Corpuscular Hemoglobin 30.8 pg (28.0-32.0); Mean Corpuscular Hgb Conc. 34.6 g/dL (32.0-36.0); Mean Corpuscular Volume 89.2 fL (80.0-100.0); Monocytes # (auto) 0.6 10 ^3/uL (0-1.3); Neutrophils # (auto) 3.6 10 ^3/uL (1.6-8.6); Neutrophils % (auto) 50.5 % (37.0-80.0); Platelet Count (auto) 367 10^3/uL (140-450); Red Blood Cells 3.02 10^6/uL (4.0-5.20); Red Cell Distribution Width 15.4 % (11.8-14.3); White Blood Cell 7.1 10^3/uL (4.4-10.8)
[2024-09-20 11:38] LABS: Alanine Aminotransferase 11 U/L (7-40); Albumin 4.1 g/dL (3.2-4.8); Alkaline Phosphatase 68 U/L (46-116); Anion Gap 9 (5-15); Aspartate Aminotransferase 14 U/L (13-40); BUN/Creatinine Ratio 10.4 (10.0-20.0); Calcium 9.5 mg/dL (8.7-10.4); Carbon Dioxide 28 mmol/L (20-31); Chloride 106 mmol/L (98-107); Glucose 91 mg/dL (74-106); Potassium 3.6 mmol/L (3.5-5.1); Sodium 143 mmol/L (136-145); Total Protein 6.5 g/dL (5.7-8.2)
[2024-09-20 11:39] LABS: Bilirubin, Total 0.3 mg/dL (0.2-1.0)
[2024-09-20 11:43] LABS: Blood Urea Nitrogen 7 mg/dL (9-23)
[2024-09-20] MEDS ORDERED: SUCR1TAB PO (14:14)
[2024-09-20] MEDS ORDERED: PANT40TA2 PO (14:14)
--- NOTE | 2024-09-20 14:19 | DVHDS2 ---
Discharge Summary Date of Admission Sep 12, 2024 at 14:31 Date of Discharge: Sep 20, 2024 Admitting Diagnosis 1) Acute UGI hemorrhage from post endoscopic mucosal resection of gastric lesion. s/p EGD with hemostasis by epi injection, clips, hemostatic powder. Labs/Diagnostic Data: Laboratory Results Test 09/20/24 10:26 09/18/24 17:34 09/18/24 08:48 09/16/24 03:21 White Blood Count 7.1 10^3/uL (4.4-10.8) Red Blood Count 3.02 10^6/uL (4.0-5.20) Hemoglobin 9.3 g/dL (12.2-16.2) Hematocrit 26.9 % (36.0-46.0) Mean Corpuscular Volume 89.2 fL (80.0-100.0) Mean Corpuscular Hemoglobin 30.8 pg (28.0-32.0) Mean Corpuscular Hemoglobin Concent 34.6 g/dL (32.0-36.0) Red Cell Distribution Width 15.4 % (11.8-14.3) Platelet Count 367 10^3/uL (140-450) Mean Platelet Volume 6.8 fL (6.9-10.8) Neutrophils (%) (Auto) 50.5 % (37.0-80.0) Lymphocytes (%) (Auto) 32.8 % (10.0-50.0) Monocytes (%) (Auto) 9.0 % (0.0-12.0) Eosinophils (%) (Auto) 6.7 % (0.0-7.0) Basophils (%) (Auto) 1.0 % (0.0-2.0) Neutrophils # (Auto) 3.6 10 ^3/uL (1.6-8.6) Lymphocytes # (Auto) 2.3 10 ^3/uL (0.4-5.4) Monocytes # (Auto) 0.6 10 ^3/uL (0-1.3) Eosinophils # (Auto) 0.5 10 ^3/uL (0-0.8) Basophils # (Auto) 0.1 10 ^3/uL (0-0.2) Nucleated Red Blood Cells 0.0 % Sodium Level 143 mmol/L (136-145) Potassium Level 3.6 mmol/L (3.5-5.1) Chloride Level 106 mmol/L (98-107) Carbon Dioxide Level 28 mmol/L (20-31) Anion Gap 9 (5-15) Blood Urea Nitrogen 7 mg/dL (9-23) Creatinine 0.67 mg/dL (0.550-1.02) Glomerular Filtration Rate Calc 98 mL/min (>90) BUN/Creatinine Ratio 10.4 (10.0-20.0) Serum Glucose 91 mg/dL (74-106) Calcium Level 9.5 mg/dL (8.7-10.4) Total Bilirubin 0.3 mg/dL (0.2-1.0) Aspartate Amino Transferase (AST) 14 U/L (13-40) Alanine Aminotransferase (ALT) 11 U/L (7-40) Alkaline Phosphatase 68 U/L (46-116) Total Protein 6.5 g/dL (5.7-8.2) Albumin 4.1 g/dL (3.2-4.8) POC Glucose 94 mg/dl (70-106) Magnesium Level 1.8 mg/dL (1.6-2.6) Phosphorus Level 3.6 mg/dL (2.4-5.1) Triglycerides Level 123 mg/dL (< 150) Test 09/15/24 22:00 09/15/24 09:43 09/15/24 07:02 09/13/24 22:01 Vancomycin Level Trough 9.6 ug/mL (5-10) Blood Gas Specimen Type Arterial Blood Gas Sample Site Right radial Blood Gas Patient Temperature 37.0 Arterial Blood Date Drawn [id number] Arterial Blood pH 7.442 (7.350-7.450) Arterial Blood Partial Pressure CO2 39.8 mmHg (32.0-45.0) Arterial Blood Partial Pressure O2 70.9 mmHg (83.0-108.0) Arterial Blood HCO3 26.5 mmol/L (21.0-28.0) Arterial Blood Oxygen Saturation 93.6 % (94.0-98.0) Arterial Blood Base Excess 2.3 mmol/L (-2.0-3.0) Arterial Blood Oxyhemoglobin 92.9 % (94.0-98.0) Arterial Blood Carboxyhemoglobin 0.3 % (0.5-1.5) Arterial Blood Methemoglobin 0.4 % (0.0-1.5) Gagan Test Modified Blood Gas Total Hemoglobin 8.60 g/dL (12.0-16.0) Blood Gas Modality Vent - cpap FiO2 % 30.0 Blood Gas Pressure Support 8 Blood Gas PEEP or CPAP 5.0 Blood Gas Set Respiration Rate 14.0 Blood Gas Tidal Volume 500.0 Prothrombin Time 11.0 sec (9.3-11.8) Prothrombin Time INR 1.04 (0.9-1.15) Activated Partial Thromboplast Time 23.0 SEC (24.5-34.5) Test 09/13/24 03:57 09/12/24 18:30 09/12/24 16:35 09/12/24 09:41 Lactic Acid Level 1.3 mmol/L (0.4-2.0) Blood Gas Critical Value Read Back Yes Blood Gas Notified Whom rohan Tyson Blood Gas Notified Time [id number] Blood Gas Notified By Nickie cope rrt Differential Total Cells Counted 100.0 (100) Neutrophils % (Manual) 81 (37.0-80.0) Band Neutrophils % (Manual) 0 Lymphocytes % (Manual) 14 (10.0-50.0) Monocytes % (Manual) 5 (0-12) Eosinophils % (Manual) 0 (0-7) Basophils % (Manual) 0 (0.0-2.0) Metamyelocytes % (manual) 0 Myelocytes % (Manual) 0 Promyelocytes % (Manual) 0 Blast Cells % (Manual) 0 Reactive Lymphocytes 0 Platelet Estimate Adequate Urine Color Colorless (Yellow) Urine Clarity Clear (Clear) Urine pH 7.0 (5.0-9.0) Urine Specific Lawrence 1.028 (1.001-1.035) Urine Protein Negative (Negative) Urine Ketones Negative (Negative) Urine Blood Negative /uL (Negative) Urine Nitrite Negative (Negative) Urine Bilirubin Negative (Negative) Urine Urobilinogen Normal mg/dL (Negative) Urine Leukocyte Esterase Negative /uL (Negative) Urine RBC <1 /hpf (0 - 4) Urine Microscopic WBC 1 /HPF (0-5) Urine Squamous Epithelial Cells Few /hpf (<5) Urine Bacteria None seen /hpf (None Seen) Urine Glucose Normal mg/dL (Normal) Other Laboratory Tests 09/20/24 10:26 Brief Hx & Hospital Course: Patient was admitted for acute upper GI hemorrhage after being S/P EGD and colonoscopy as outpatient. Patient had repeat EGD done by had hemostasis with EpiPen. Patient was given multiple units of packed red blood cells and had improvement in hemoglobin. Patient became severely deconditioned and receive PT during hospital stay. Patient was arranged for home health for home PT. Patient is to follow up with PCP within one week of discharge, patient was agreeable to discharge. Patient was sent home on Protonix and sucralfate and potassium upon discharge. Condition at Discharge: Fair Final Diagnosis/Problems List 1. Hematemesis 2. 1) Acute UGI hemorrhage from post endoscopic mucosal resection of gastric lesion. s/p EGD with hemostasis by epi injection, clips, hemostatic powder. 3. Hypovolemic Shock 4. DM II hyperglycemia 5. Obesity 6. acute blood loss anemia 7. Hypokalemia Discharge Disposition: Home with Health Services Discharge Instruct/Medications Diet: Cardiac 2g Na,low cholest Activity: No Restrictions, As Tolerated Follow Up/Referral: PCP within 1 week Discharge Statement: "Patient was advised to return to the ER or call 911 if any headaches, dizziness, shortness of breath, chest pain, abdominal pain, bleeding, fevers, or worsening of medical condition. Patient was counseled about treatment plan, medications, possible side effects, patientverbalized understanding. All questions were answered to the best of my ability. This discharge took greater then 30 minutes in planning, reviewing documentation, counseling the patient, and discussing with other team members." ASSESSMENT ASSESSMENT Assessment 1. Hematemesis 2. GI Bleed 3. Hypovolemic Shock 4. DM II hyperglycemia 5. Obesity RENEE DAILEY Sep 20, 2024 14:19
[2024-09-20] MEDS ORDERED: POTA-36 PO (18:11)
--- NOTE | 2024-09-20 22:56 | DVHPN2 ---
Progress Note - Dictate Date Seen: Sep 20, 2024 Medical Necessity Reason Pt with a Central, PICC or Fol: No Subjective Patient seen and examined at bedside. Breathing comfortably on room air Overnight events reviewed. vital signs Vital Sign Date Time Temp Pulse Resp B/P (MAP) Pulse Ox O2 Delivery O2 Flow Rate FiO2 09/20/24 17:00 98.8 78 20 103/60 (74) 96 98.8 09/20/24 08:10 Room Air* 0 21 Total Intake and Output 09/19/24 09/19/24 09/20/24 15:00 23:00 07:00 Intake Total 200 ml 800 ml 1020 ml Output Total 2300 ml 150 ml Balance -2100 ml 800 ml 870 ml objective Gen.: Patient lying in bed in no apparent distress. On room air. Head: Normocephalic, atraumatic. Eyes: EOMI/PERRLA. Ears: Normal hearing. Normal anatomy. Neck/trachea: Trachea midline, supple. Nose: Normal external anatomy. Mouth: Moist mucous membranes. Chest: Decreased air entry bilaterally. No wheezing or rhonchi. Cardiovascular: Positive S1, positive S2. Regular rate and rhythm. Abdomen: Positive bowel sounds in all 4 quadrants. Soft, non-tender, non- distended. : Deferred. Rectal: Deferred. Skin: Warm, dry. Intact. Extremities: 2+ radial pulses bilaterally. No lower extremity edema. Neuro: Awake, alert, oriented x3. No gross motor or sensory deficits. Cranial nerves II through XII intact. Gait not assessed. laboratory and microbiology Laboratory Tests 09/20/24 10:26 Test 09/20/24 10:26 Range/Units Serum Glucose 91 74-106 mg/dL Assessment/Plan Impression: Acute hypoxic respiratory failure GI hemorrhage Hematemesis d/t gastric ulcer Obesity BMI 31.9 Events: Remains on room air Supplemental oxygen PRN Improved O2 requirements Complete antibiotics. Incentive spirometry Monitor hemoglobin Protonix PO BID Continue sucralfate GI recs appreciated Monitor renal function Monitor electrolytes. Supplement as necessary. Potassium supplementation Check magnesium Clinimix for nutritional support PT eval. Patient is stable from the pulmonary standpoint for discharge. Disposition per hospitalist Arrange for home health Labs and imaging reviewed. Rest of plan as noted below. Plan: s/p extubation on 09/15/24 Supplemental oxygen PRN Titrate to keep O2 saturation above 92%. Monitor hemoglobin GI recs appreciated Continue antibiotics. F/u cultures. Blood cultures, no growth after 72 hours Pressors as necessary to maintain a mean arterial blood pressure greater than 65 mmHg. Monitor renal function Monitor electrolytes. Supplement as necessary. Monitor ins and outs. GI prophylaxis. DVT prophylaxis. Prognosis: Guarded given patient's multiple co-morbidities. Rest of plan per hospitalist and other consultants. Thank you, DACIA Villegas, for allowing me to participate in this patient's care. Further recommendations will depend on the patient's clinical course. Please do not hesitate to contact me if you have any questions or concerns. This medical document was created using an electronic medical record system with [employer]ation system. Although these documentations are being carefully reviewed, there may still be some phonetic and typographical changes. The errors are purely typographical, due to imperfection on the software program, and do not reflect any compromise in the patient's medical care. Dietary Evaluation Review Comments: 1) Advance to 60g CCHO diet when medically feasible, pending ASSISTANT HOUSEKEEPING MANAGER approval 2) Follow-up with medical attendant 3) Refer to outpatient RD/[facility] for weight management 4) Continue to monitor appetite, labs, and skin integrity Expected Outcomes/Goals: 1) appetite and labs to improve 2) diet to advance 3) f/u in 5 days Plan discussed with: Patient, Other (RN Shraddha) CC Plasma Assessment Blood Product Administration S: [id number] KARTIK HUANG MD Sep 20, 2024 22:56
--- NOTE | 2024-10-07 07:58 | DVHOP2 ---
Operative Report DATE OF OPERATION: 09/14/24 PROCEDURE: Upper Endoscopy. PREOPERATIVE INDICATION: The patient is a 64 -year-old female undergoing endoscopy for upper GI bleeding POSTOPERATIVE DIAGNOSES: PROCEDURE PERFORMED BY: Denilson Bahena Md GI NURSE: SCOPE: Olympus videoendoscope. ASA CLASS: PREOPERATIVE MEDICATIONS: Pt is being sedated per ICU protocol. PROCEDURE IN DETAIL: After obtaining an informed consent, the patient was placed on left lateral decubitus position. The patient was then sedated with the above medications. A bite block was placed between she teeth. The endoscope was then passed through the oropharynx, into the esophagus, and through the stomach and pylorus up to the second and third part of the duodenum. The endoscope was then withdrawn. The patient tolerated the procedure well without difficulty. Summary of Findings: 1) The entire esophagus appears normal. 2) In the stomach there was some old blood clots seen. Extensive lavage performed. No active bleeding was seen. Prior bleeding site still has hemoclip in place. NO bleeding from this site as well. 3) The duodenal bulb and 2nd portion appears normal. COMPLICATIONS : None SPECIMENS: PLAN: 1.Cont to monitor H&H serially and transfuse if symptomatic. 2. Cont IV Protonix 40mg BID 3. Hold all blood thinners for now. 4. Extubation plan per PMD and Critical care team. DENILSON BAHENA MD Oct 07, 2024 07:58
== END 2024-09-20 16:07 | disposition home health service (06) | DRG 241 ==
LOC: EDSEX 07:01 → ER 07:01 → OVERFLOW 14:31 → ICU WEST 18:56 → TELE-WESTW 09-16 17:47
PROVIDERS: ADMIT Nurse Practitioner; ATTEND Nurse Practitioner
PROC: 0BH17EZ Insertion of Endotracheal Airway into Trachea, Via Natural or Artificial Opening (ICD-10-PCS; 2024-09-12)
PROC: 02HV33Z Insertion of Infusion Device into Superior Vena Cava, Percutaneous Approach (ICD-10-PCS; 2024-09-12)
PROC: 30233N1 Transfusion of Nonautologous Red Blood Cells into Peripheral Vein, Percutaneous Approach (ICD-10-PCS; 2024-09-12)
PROC: B548ZZA Ultrasonography of Superior Vena Cava, Guidance (ICD-10-PCS; 2024-09-12)
PROC: 0W3P8ZZ Control Bleeding in Gastrointestinal Tract, Via Natural or Artificial Opening Endoscopic (ICD-10-PCS; 2024-09-12)
PROC: 5A1945Z Respiratory Ventilation, 24-96 Consecutive Hours (ICD-10-PCS; principal; 2024-09-12 14:15)
PROC: 0DJ08ZZ Inspection of Upper Intestinal Tract, Via Natural or Artificial Opening Endoscopic (ICD-10-PCS; 2024-09-14)
DX: K25.0 Acute gastric ulcer with hemorrhage (principal); J96.01 Acute respiratory failure with hypoxia; R57.1 Hypovolemic shock; J15.69 Pneumonia due to other Gram-negative bacteria; E11.65 Type 2 diabetes mellitus with hyperglycemia; E66.9 Obesity, unspecified; E87.0 Hyperosmolality and hypernatremia; E87.6 Hypokalemia; D62 Acute posthemorrhagic anemia; Z68.31 Body mass index [BMI] 31.0-31.9, adult; Z79.899 Other long term (current) drug therapy; R65.11 Systemic inflammatory response syndrome (SIRS) of non-infectious origin with acute organ dysfunction
CPT/HCPCS: 36415; 36430; 36600; 71045; 74177; 80048; 80053; 80202; 81001; 82805; 82962; 83605; 83735; 84100; 84478; 85007; 85014; 85018; 85025; 85027; 85610; 85730; 86850; 86900; 86901; 86920; 87040; 87070; 87077; 87081; 87186; 87205; 92507; 92610; 94002; 94003; 96361; 96365; 96366; 96375; 97110; 97116; 97163; 97530; 99291; 99292; G0378; J0131; J1815; J2003; J2250; J2470; J2543; J3480

== ENCOUNTER 2025-07-02 11:59 | Emergency (ER) | payer MEDICAID ==
[~2025-07-02] VITALS: Ht 157.5 cm; Wt 93.5 kg
[~2025-07-02 11:59] MED LIST: PANT40TA2 PO; POTA-36 PO; SUCR1TAB PO
[2025-07-02] MEDS ORDERED: CEPH500C PO (12:48)
--- NOTE | 2025-07-02 12:50 | ED.PDOC ---
History of Present Illness HPI Comments A 65 YEAR OLD FEMALE PRESENTS TO THE ED WITH COMPLAINT OF WOUND OF LEFT LOWER LEG. PATIENT STATES SHE HAS HAD A WOUND ON HER LEFT LOWER LEG FOR THE PAST 1 MONTH AND IS HERE IN THE ED TO HAVE THIS WOUND CHECKED FOR INFECTION DUE TO HER HISTORY OF DIABETES. PATIENT DENIES FEVER, CHILLS, SHORTNESS OF BREATH, CHEST PAIN, ABDOMINAL PAIN, NAUSEA, VOMITING, HEADACHE, OR OTHER COMPLAINTS. NO OTHER SYMPTOMS OR MODIFYING FACTORS AT THIS TIME. PATIENT IS ALERT, ORIENTED X 4, AND HAS STEADY GAIT. Chief Complaint: Wound Check Time Seen by MD: 12:02 Reviewed Notes: Nurses Notes, Medications, Allergies Allergies: Coded Allergies: NO KNOWN ALLERGIES (Unverified , 09/12/24) Home Meds Active Scripts Cephalexin Monohydrate (Cephalexin) 500 Mg Cap, 1 CAP PO QID, #32 CAP Prov:HUBER BETANCOURT 07/02/25 Potassium Chloride (POTASSIUM CHLORIDE CR) 10 Meq Tb, 1 TAB PO DAILY for 14 Days, #14 TAB 5 Refills Prov:RENEE DAILEY 09/20/24 Pantoprazole Sodium Sesquihydr (Protonix) 40 Mg Tab, 40 MG PO DAILY for 30 Days, #30 TAB Prov:RENEE DAILEY 09/20/24 Sucralfate (Sucralfate) 1 Gm Tab, 1 GM PO BID for 30 Days, #60 TAB Prov:RENEE DAILEY 09/20/24 Information Source: Patient Mode of Arrival: Ambulatory Severity: Mild Timing: Days Duration: Since onset, Days Prehospital treatment: None Medication Refill: For: Other (WOUND RECHECK OF LEFT LOWER LEG) Past Medical History PAST MEDICAL HISTORY: DM, High Lipids Surgical History: Denies all surgeries AGRONOMY ADVISOR History: Denies all AGRONOMY ADVISOR Hx Family History Family History: Reviewed,noncontributory to illness Social History Smoker: Non-Smoker Alcohol: Denies ETOH Use Drugs: Denies Drug Use Lives In: Home Constitutional: denies: chills, diaphoresis, fatigue, fever, malaise, sweats, weakness, others EENTM: denies: blurred vision, double vision, ear bleeding, ear discharge, ear drainage, ear pain, ear ringing, eye pain, eye redness, hearing loss, mouth pain, mouth swelling, nasal discharge, nose bleeding, nose congestion, nose pain, photophobia, tearing, throat pain, throat swelling, voice changes, others Respiratory: denies: cough, hemoptysis, orthopnea, SOB at rest, shortness of breath, SOB with excertion, stridor, wheezing, others Cardiovascular: denies: chest pain, dizzy spells, diaphoresis, Dyspnea on exertion, edema, irregular heart beat, left arm pain, lightheadedness, pal pitations, PND, syncope, others Gastrointestinal: denies: abdomen distended, abdominal pain, blood streaked bowels, constipated, diarrhea, dysphagia, difficulty swallowing, hematemesis, melena, nausea, poor appetite, poor fluid intake, rectal bleeding, rectal pain, vomiting, others Genitourinary: denies: abnormal vagina bleeding, burning, dyspareunia, dysuria, flank pain, frequency, hematuria, incontinence, pain, , vagina discharge, urgency, others Neurological: denies: dizziness, fainting, headache, left sided numbness, left sided weakness, numbness, paresthesia, pre-existing deficit, right sided numbness, right sided weakness, seizure, speech problems, tingling, tremors, weakness, others Musculoskeletal: denies: back pain, gout, joint pain, joint swelling, muscle pain, muscle stiffness, neck pain, others Integumetry: reports: lesions, wounds, others (WOUND RECHECK OF LEFT LOWER LEG); denies: bruises, change in color, change in hair/nails, dryness, lacerat ion, lumps, rash Allergic/Immunocompromised: denies: Difficulty Healing, Frequent Infections, Hives, Itching, others Hematologic/Lymphatic: denies: anemia, blood clots, easy bleeding, easy bruising, swollen glands, others Endocrine: denies: excessive hunger, excessive sweating, excessive thirst, excessive urination, flushing, intolerance to cold, intolerance to heat, unexplained weight gain, unexplained weight loss, others Psychiatric: denies: anxiety, bipolar disorder, depression, hopeless, panic disorder, schizophrenia, sleepless, suicidal, others All Other Systems: Reviewed and Negative Physical Exam General Appearance: No Apparent Distress, Normal HEENT: Normal ENT Inspection, PERRL/EOMI, Pharynx Normal, TMs Normal Neck: Full Range of Motion, Non-Tender, Normal, Normal Inspection Respiratory: Chest Non-Tender, Lungs Clear, No Accessory Muscle Use, No Respiratory Distress, Normal Breath Sounds Cardiovascular: No Edema, No JVD, No Murmur, No Gallop, Normal Peripheral Pulses, Regular Rate/Rhythm Breast Exam: Deferred Gastrointestinal: No Organomegaly, Non Tender, No Pulsatile Mass, Normal Bowel Sounds, Soft Genitalia: Deferred Pelvic: Deferred Rectal: Deferred Extremities: No calf tenderness, Normal capillary refill, Normal inspection, Normal range of motion, No pedal edema, Tender (WITH A SMALL OPEN WOUND ON LEFT LATERAL LOWER LEG. ) Musculoskeletal : Apperance: Normal Neurologic: Alert, supervisor carbon electrodes II-XII nml as Tested, No Motor Deficits, Normal Affect, Normal Mood, No Sensory Deficits Cerebellar Function: Normal Reflexes: Normal Skin: Dry, Normal Color, Warm, Wounds ([id number] OPEN WOUND WITH MILD LOCALIZED REDNESS AND TENDERNESS, NO PUS DRAINAGE AND BLEEDING, HEALING WOUND. ) Peripheral Pulses: 2+ carotid (R), 2+ carotid (L), 2+ dorsalis pedis (R), 2+ dorsalis pedis (L) Lymphatic: No Adenopathy Was a procedure done? Was a procedure done?: No Differential Dx Considerations may include: WOUND RECHECKED, WOUND INFECTION X-Ray, Labs, Meds, VS Vital Signs Date Time Temp Pulse Resp B/P (MAP) Pulse Ox O2 Delivery O2 Flow Rate FiO2 07/02/25 12:52 98.8 80 17 120/80 (93) 96 98.8 07/02/25 12:04 97.7 83 16 142/80 95 97.7 X-Ray, Labs, Meds, VS Comment EXTERNAL MEDICAL RECORDS REVIEWED: [NONE] INDEPENDENT HISTORIANS: [NONE] SOCIAL DETERMINANTS OF HEALTH: [NONE] LABS ORDERED: NONE REVIEWED AND INTERPRETED RESULTS: NONE IMAGING ORDERED: NONE TREATMENTS ORDERED: PATIENT'S WOUND ON HER LEFT LOWER LEG WAS CLEANED WITH NORMAL SALINE AND WRAPPED WITH STERILE GAUZE. PROCEDURES PERFORMED: NONE CRITICAL CARE TIME: NONE I HAVE DISCUSSED THE PATIENT WITH THE ATTENDING PHYSICIAN DR. PITTMAN AND HE AGREES WITH THE PATIENT'S PLAN OF CARE AND DISPOSITION. BASED ON HISTORY OF PRESENT ILLNESS, AND PHYSICAL EXAM, PATIENT WILL BE DISCHARGED HOME. DISCUSSED PLAN FOR DISCHARGE HOME WITH RX [KEFLEX]. MEDICATION WARNINGS GIVEN. SHARED DECISION MAKING: PATIENT INSTRUCTED TO FOLLOW UP WITH PRIMARY CARE PROVIDER IN 1-2 DAYS FOR RE-EVALUATION OF SYMPTOMS. PATIENT VERBALIZES UNDERSTANDING TO RETURN TO ED FOR NEW OR WORSENING SYMPTOMS OR IF FOLLOW UP WITH PCP CANNOT BE OBTAINED. PATIENT FEELS COMFORTABLE GOING HOME AT THIS TIME. ALL QUESTIONS ADDRESSED AT TIME OF DISCHARGE. Time of 1ST Reevaluation: 13:01 Reevaluation 1ST: Improved Patient Education/Counseling: Diagnosis, Treatment, Need For Follow Up Family Education/Counseling: Diagnosis, Treatment, Need For Follow Up Medical Screening: No EMC Exist At This Time SEPSIS Sepsis Screen Date sepsis recognized/suspect: Jul 02, 2025 Time Sepsis recognized/suspect: 1207 Recent Procedure: No On Antibiotic Therapy: No Respiratory Rate >20: No Heart Rate >90: No Temp<36 C (96.8 F) or >38.3 C: No SBP <90 or MAP <65 mmHG: No New Acute Mental Status Change: No Is the patient on CPAP, BIPAP,: No Vital Signs Date Time Temp Pulse Resp B/P (MAP) Pulse Ox O2 Delivery O2 Flow Rate FiO2 07/02/25 12:52 98.8 80 17 120/80 (93) 96 98.8 07/02/25 12:04 97.7 83 16 142/80 95 97.7 Departure 1 Departure Time of Disposition: 13:01 Impression: Primary Impression: Encounter for wound re-check Disposition: HOME / SELF CARE / HOMELESS Condition: Stable Additional Instructions: FOLLOW-UP WITH PCP IN 1 TO 2 DAYS. TAKE MEDICATIONS PRESCRIBED. RETURN TO ED FOR ANY NEW OR WORSENING SYMPTOMS. e-Prescriptions Cephalexin Monohydrate (Cephalexin) 500 Mg Cap 1 CAP PO QID, #32 CAP Prov: HUBER BETANCOURT 07/02/25 Discharged With: Self Critical Care Note Critical Care Time?: No Stability Stability form required: No I personally scribed for HUBER BETANCOURT ([email or web address]) on 07/02/25 at 12:50. Electronically submitted by Sly Azevedo ([email or web address]). HUBER BETANCOURT Jul 02, 2025 12:50
[2025-07-02 12:52] VITALS: BP 120/80; PULSE 80; RESP 17; TEMP 98.8; O2SAT 96
== END 2025-07-02 12:53 | disposition home or self-care (01) ==
LOC: ER 11:59
DX: Z48.00 Encounter for change or removal of nonsurgical wound dressing (principal); E11.9 Type 2 diabetes mellitus without complications; Z79.899 Other long term (current) drug therapy

== ENCOUNTER 2025-07-18 10:17 | Emergency (ER) | payer MEDICAID ==
[~2025-07-18 10:17] MED LIST changes: +CEPH500C PO
[2025-07-18 11:21] VITALS: BP 112/75; PULSE 89; RESP 16; TEMP 99; O2SAT 95
--- NOTE | 2025-07-18 11:30 | ED.PDOC ---
History of Present Illness(SKN HPI Comments 65 y/o F, with PMHx of DM presents to the ED for CC of wound. Patient states, she has a non-healing wound to her left-lower leg since, 05/25/25. Patient reports, being seen on 06/29/25 for SS and being given IV and oral Abx with no relief or change in symptoms. Patient has a notable 1cm round wound to her left lower leg with surrounding erythema and purulent drainage. Patient denies fever, chills, palpitations, or faintness. No other symptoms or modifying factors are present at this time. Chief Complaint: Abscess Time Seen by MD: 11:00 History of Present Illness: Nurses Notes, Medications, Allergies Allergies: Coded Allergies: NO KNOWN ALLERGIES (Unverified , 09/12/24) Home Meds Active Scripts Cephalexin Monohydrate (Cephalexin) 500 Mg Cap, 1 CAP PO QID, #32 CAP Prov:HUBER BETANCOURT 07/02/25 Potassium Chloride (POTASSIUM CHLORIDE CR) 10 Meq Tb, 1 TAB PO DAILY for 14 Days, #14 TAB 5 Refills Prov:RENEE DAILEYP 09/20/24 Pantoprazole Sodium Sesquihydr (Protonix) 40 Mg Tab, 40 MG PO DAILY for 30 Days, #30 TAB Prov:RENEE DAILEY 09/20/24 Sucralfate (Sucralfate) 1 Gm Tab, 1 GM PO BID for 30 Days, #60 TAB Prov:RENEE DAILEYP 09/20/24 Information Source: Patient Mode of Arrival: Ambulatory Severity: Moderate Timing: Days Duration: Since onset Prehospital treatment: None Location: Leg (LEFT LOWER LEG) Mechanism: Spontaneous Onset Object: None Immunization Status of Animal: NA Tetanus: Unknown History of: None Associated Signs and Symptoms: Redness Past Medical History PAST MEDICAL HISTORY: DM, High Lipids Surgical History: Denies all surgeries TAKE DOWN INSPECTOR History: Denies all TAKE DOWN INSPECTOR Hx Family History Family History: Reviewed,noncontributory to illness Social History Smoker: Non-Smoker Alcohol: Denies ETOH Use Drugs: Denies Drug Use Lives In: Home Constitutional: denies: chills, diaphoresis, fatigue, fever, malaise, sweats, weakness, others EENTM: denies: blurred vision, double vision, ear bleeding, ear discharge, ear drainage, ear pain, ear ringing, eye pain, eye redness, hearing loss, mouth pain, mouth swelling, nasal discharge, nose bleeding, nose congestion, nose pain, photophobia, tearing, throat pain, throat swelling, voice changes, others Respiratory: denies: cough, hemoptysis, orthopnea, SOB at rest, shortness of breath, SOB with excertion, stridor, wheezing, others Cardiovascular: denies: chest pain, dizzy spells, diaphoresis, Dyspnea on exertion, edema, irregular heart beat, left arm pain, lightheadedness, palpitations, PND, syncope, others Gastrointestinal: denies: abdomen distended, abdominal pain, blood streaked bowels, constipated, diarrhea, dysphagia, difficulty swallowing, hematemesis, melena, nausea, poor appetite, poor fluid intake, rectal bleeding, rectal pain, vomiting, others Genitourinary: denies: abnormal vagina bleeding, burning, dyspareunia, dysuria, flank pain, frequency, hematuria, incontinence, pain, , vagina discharge, urgency, others Neurological: denies: dizziness, fainting, headache, left sided numbness, left sided weakness, numbness, paresthesia, pre-existing deficit, right sided numbness, right sided weakness, seizure, speech problems, tingling, tremors, weakness, others Musculoskeletal: denies: back pain, gout, joint pain, joint swelling, muscle pain, muscle stiffness, neck pain, others Integumetry: reports: wounds (LEFT LOWER LEG); denies: bruises, change in color, change in hair/nails, dryness, laceration, lesions, lumps, rash, others Allergic/Immunocompromised: denies: Difficulty Healing, Frequent Infections, Hives, Itching, others Hematologic/Lymphatic: denies: anemia, blood clots, easy bleeding, easy bruising, swollen glands, others Endocrine: denies: excessive hunger, excessive sweating, excessive thirst, excessive urination, flushing, intolerance to cold, intolerance to heat, u nexplained weight gain, unexplained weight loss, others Psychiatric: denies: anxiety, bipolar disorder, depression, hopeless, panic disorder, schizophrenia, sleepless, suicidal, others All Other Systems: Reviewed and Negative Physical Exam General Appearance: Mild Distress, Obese HEENT: Normal ENT Inspection, PERRL/EOMI Neck: Full Range of Motion, Non-Tender, Normal, Normal Inspection Respiratory: Chest Non-Tender, Lungs Clear, No Accessory Muscle Use, No Respiratory Distress, Normal Breath Sounds Cardiovascular: No Edema, No JVD, No Murmur, No Gallop, Normal Peripheral Pulses, Regular Rate/Rhythm Breast Exam: Deferred Gastrointestinal: No Organomegaly, Non Tender, No Pulsatile Mass, Normal Bowel Sounds, Soft Genitalia: Deferred Pelvic: Deferred Rectal: Deferred Extremities: No calf tenderness, Normal capillary refill, Normal inspection, Normal range of motion, Non-tender, No pedal edema, Other (Left leg shows a small ulceration With surrounding by a red skin ) Neurologic: Alert, plastics worker II-XII nml as Tested, No Motor Deficits, Normal Affect, Normal Mood, No Sensory Deficits Cerebellar Function: Normal Reflexes: Normal Skin: Dry, Normal Color, Warm, Wounds Peripheral Pulses: 1+ carotid (R), 1+ carotid (L) Lymphatic: No Adenopathy Was a procedure done? Was a procedure done?: No Differential Diagnosis (INTG) Differential Diagnosis: Abrasion, Cellulitis, Puncture Wound Differential Diagnosis: Abscess, Cellulitis Differential Diagnosis: N/A Abscess: N/A Differential Diagnosis: Osteomyelitis, N/A X-Ray, Labs, Meds, VS Vital Signs Date Time Temp Pulse Resp B/P (MAP) Pulse Ox O2 Delivery O2 Flow Rate FiO2 07/18/25 11:21 99.0 89 16 112/75 (87) 95 99.0 07/18/25 10:18 98.3 89 18 134/79 95 98.3 X-Ray, Labs, Meds, VS Comment Coure in the fast track eventful Patient will get Rocephin 1 g IM the wound will be cleaned scrubbed with burn And dressed with Neosporin Time of 1ST Reevaluation: 11:30 Reevaluation 1ST: Unchanged Patient Education/Counseling: Diagnosis, Treatment Family Education/Counseling: No Family Present SEPSIS Sepsis Screen Date sepsis recognized/suspect: Jul 18, 2025 Time Sepsis recognized/suspect: 1020 Recent Procedure: No On Antibiotic Therapy: No Respiratory Rate >20: No Heart Rate >90: No Temp<36 C (96.8 F) or >38.3 C: No SBP <90 or MAP <65 mmHG: No New Acute Mental Status Change: No Is the patient on CPAP, BIPAP,: No Vital Signs Date Time Temp Pulse Resp B/P (MAP) Pulse Ox O2 Delivery O2 Flow Rate FiO2 07/18/25 11:21 99.0 89 16 112/75 (87) 95 99.0 07/18/25 10:18 98.3 89 18 134/79 95 98.3 Departure 1 Departure Time of Disposition: 11:48 Impression: Primary Impression: Leg wound, left Qualified Codes: S81.802A - Unspecified open wound, left lower leg, initial encounter Disposition: HOME / SELF CARE / HOMELESS Condition: Fair Additional Instructions: Cleaned with peroxide and apply Neosporin ointment e-Prescriptions Bacitracin-Polymyxin B (Neosporin [id number] Unit/gm) 1 Oin Oin 1 OIN EX BID for 10 Days, #30 OIN Prov: KRISHNA TORRES MD 07/18/25 Cefdinir (Cefdinir) 300 Mg Cap 300 MG PO BID for 10 Days, #20 CAP Prov: KRISHNA TORRES MD 07/18/25 Discharged With: Self Critical Care Note Critical Care Time?: No Stability Stability form required: No Heart Score Heart Score: Heart Score Response (Comments) Value History N/A 0 EKG N/A 0 Age 45-64 1 Risk Factors 1 or 2 risk factors 1 Troponin N/A 0 Total 2 I personally scribed for KRISHNA TORRES MD ([email or web address]) on 07/18/25 at 11:30. Electronically submitted by Estela Vera ([email or web address]). KRISHNA TORRES MD Jul 18, 2025 11:30
[2025-07-18] MEDS ORDERED: BACI1OIN45 EX (11:52)
[2025-07-18] MEDS ORDERED: CEFD300C2 PO (11:52)
[2025-07-18] MEDS: cefTRIAXone W LIDOCAINE 1 GM IM IM ONE (12:02)
[2025-07-18] MEDS: cefTRIAXone SOD 1,000 MG VL ONE (12:02)
[2025-07-25] MEDS ORDERED: MUPI2CRE17 EX (13:52)
== END 2025-07-18 12:05 | disposition home or self-care (01) ==
LOC: ER 10:17
DX: S81.802A Unspecified open wound, left lower leg, initial encounter (principal); E11.9 Type 2 diabetes mellitus without complications; Z79.899 Other long term (current) drug therapy; X58.XXXA Exposure to other specified factors, initial encounter; Y93.89 Activity, other specified; Y92.89 Other specified places as the place of occurrence of the external cause; Y99.8 Other external cause status
CPT/HCPCS: 96372; 99283; J0696